=== PATIENT | male | born 1960 | race Caucasian/White ===

== ENCOUNTER 2019-05-14 05:27 | Emergency (ER) | payer MEDICAID, SELFPAY ==
[2019-05-14 05:32] VITALS: BP 123/73; PULSE 68; RESP 17; TEMP 36.4; O2SAT 97; BMI 26.9
== END 2019-05-14 07:20 | disposition left against medical advice (07) ==
PROVIDERS: Emergency Provider Emergency Medicine
DX: R06.02 Shortness of breath (principal); R09.81 Nasal congestion; Z53.21 Procedure and treatment not carried out due to patient leaving prior to being seen by health care provider
CPT/HCPCS: 99281

== ENCOUNTER 2020-05-19 02:23 | Emergency (ER) | payer MEDICAID, SELFPAY ==
[2020-05-19 02:31] VITALS: BP 153/103; PULSE 63; RESP 16; TEMP 36.7; O2SAT 98; BMI 25.8
[2020-05-19 02:36] VITALS: BP 153/103; PULSE 66; RESP 15; O2SAT 98
--- NOTE | 2020-05-19 02:41 | XR_ITS ---
WS: [id number] Portable AP upright chest, 05/19/2020 Clinical Data: dizzy Comparison: PA and lateral chest, 07/23/2014. Findings: No nodules, masses or effusions are seen. The heart is normal. The pulmonary vascularity is not increased. No pneumonia or pneumothorax is seen. The aortic arch and descending aorta are tortuo us. XR/XR chest 1V portable [id number] Impression: Atherosclerosis.
--- NOTE | 2020-05-19 02:41 | CTR_ITS ---
PROCEDURE INFORMATION: Exam: CT Head Without Contrast Exam date and time: 05/19/2020 2:46 AM Age: 59 years old Clinical indication: Patient HX: Dizziness. History of prior head trauma from childhood. ; Additional info: Dizzy TECHNIQUE: Imaging protocol: Computed tomography of the head without contrast. Radiation optimization: All CT scans at this facility use at least one of these dose optimization techniques: automated exposure control; mA and/or kV adjustment per patient size (includes targeted exams where dose is matched to clinical indication); or iterative reconstruction. COMPARISON: [place] [id number] 09/02/2018 10:07 AM RADIATION DOSE METRICS: Total DLP (mGy-cm): 835.23 FINDINGS: Brain: No hemorrhage. No edema, mass effect or midline shift. Periventricular and deep white matter hypodensities compatible with chronic microvascular ischemic changes. Chronic appearing left basal ganglia lacunar infarct. Cerebral ventricles: No ventriculomegaly. Bones/joints: No acute fracture. Paranasal sinuses: Visualized sinuses are unremarkable. No fluid levels. Mastoid air cells: No mastoid effusion. Soft tissues: Unremarkable. CT/CT head wo con* [id number] IMPRESSION: No acute intracranial abnormality. Radiation Dose CTDIVOL = (mGy): DLP = 835.23 (mGy-cm)
--- NOTE | 2020-05-19 02:42 | ECG_ITS ---
[facility] Test Date: 2020-05-19 Pat Name: Evan Abel Department: Room: Gender: Male It Application Development Manager: : 1960 Requested By: Sherri Mars Order Number: [id number] Klever MD: Ebonie Mckeon M.D. Measurements Intervals [place] Rate: 65 P: 54 MI: 177 QRS: 39 QRSD: 95 T: 49 QT: 389 QTc: 405 Interpretive Statements SINUS RHYTHM No previous ECG available for comparison Electronically Signed On 05-19-2020 22:02:44 [employer] OPERATOR [employer] by Ebonie Mckeon M.D. [email or web address]
--- NOTE | 2020-05-19 02:45 | W.ED.NEUROSD ---
HPI - Neuro Symptoms/Deficit General: Chief Complaint: General Medical Stated Complaint: cloudy in the head Time Seen by Provider: 05/19/20 02:25 Source: patient Mode of arrival: ambulatory Limitations: no limitations History of Present Illness: HPI Narrative: 59-year-old male states for the last 4 to 5 months he has been having foggy feeling and states that sometimes he feels like he just cannot think right. He states that he has a hard time describing it and he just states that he does not feel like his brain is functioning at 100%. States has had some slight dizziness denies any worsening improving factors. He states that tonight just discontinued he wants to make sure he does not have a brain tumor. He denies any headache. Denies any worsening or improving factors. Denies any recent injuries. Associated symptoms: Deny chest pain, headache(s), nausea or vomiting Review of Systems Const: Denies: fever(s), chills, body aches or change in appetite Eyes: Denies: blurry vision or eye discomfort ENMT: Denies: throat pain or dental pain Card: Denies: chest pain Resp: Denies: dyspnea GI: Denies: abdominal pain, nausea, vomiting or diarrhea : Denies: dysuria Musc: Denies: neck pain or back pain Skin/Breast: Denies: rash Neuro: Denies: headache(s) Psych: Denies: depression Agustin/Lymph: Denies: easy bruising All/Imm: Denies: urticaria PFSH ED PFSH: Social History Smoking and tobacco status: never smoked NIH stroke score NIHSS: Level Of Consciousness - 1a: 0 Level Of Consciousness Questions - 1b: Both Correct Level Of Consciousness Commands - 1c: Both Correct Best Gaze - 2: Normal Visual Mac - 3: No Visual Loss Facial Palsy - 4: Normal Motor Arm Right - 5: No Drift Motor Arm Left - 5: No Drift Motor Leg Right - 6: No Drift Motor Leg Left - 6: No Drift Limb Ataxia - 7: Absent Sensory - 8: Normal Best Language - 9: No Aphasia Dysarthia - 10: Normal Extinction And Inattention - 11: 0 Score: Total Score: 0 Physical Exam Const: COMMON NORMALS: no acute distress, patient oriented x3 and healthy appearing HENMT: COMMON NORMALS: normocephalic and atraumatic HEAD & SCALP: normocephalic and atraumatic Eye: COMMON NORMALS: Equal, round and reactive pupils present and EOMs intact bilaterally PUPIL: Yes Equal, round and reactive pupils present Neck/C-Spine: COMMON NORMALS: full ROM and supple Chest: COMMONS NORMALS: normal inspection of the chest and normal palpation of entire chest wall Resp: COMMON NORMALS: normal respiratory effort, No retractions, No use of accessory muscles and clear to auscultation bilaterally AUSCULTATION: clear to auscultation bilaterally Cardio: COMMON NORMALS: regular rate, regular rhythm and No murmurs present (Cardio) RATE: regular rate RHYTHM: regular rhythm GI: COMMON NORMALS: Normal to inspection, nondistended, normoactive bowel sounds present, Soft to palpation, non-tender and no masses PALPATION: Yes Soft to palpation Extremity: COMMON NORMALS: normal to inspection and full ROM Neuro: COMMON NORMALS: patient oriented x3, moves all extremities and no focal motor deficits CRANIAL NERVES: Yes CN normal except as noted COORDINATION/BALANCE: [id number] test normal SPEECH: speech normal GAIT: Yes Normal gait present MOTOR EXAM: 5/5 motor strength present throughout COORDINATION: [id number] test normal Psych: COMMON NORMALS: mental status grossly normal, Normal thought process present and cooperative THOUGHT PROCESS: Normal thought process present Skin: COMMON NORMALS: no rashes or lesions noted and no wounds GENERAL SKIN EXAM: no rashes or lesions noted Course Vital Signs: Vital signs: Vital Signs Temperature 98.1 F 05/19/20 02:31 Pulse Rate 66 05/19/20 04:13 Respiratory Rate 15 05/19/20 04:13 Blood Pressure 135/83 05/19/20 04:13 Pulse Oximetry 97 05/19/20 04:13 MDM - Neuro Symptoms/Deficit MDM Narrative: Medical decision making narrative: Evan presents with vague complaints has been going on for months. Patient's well-appearing here and has no signs of a CVA. Patient's head CT and blood work is all normal. He is able to ambulate out any difficulty. He is stable for discharge and is to follow-up his PCP in 2 to 4 days return if worsening. He understands agrees to plan. Lab Data: Labs: Lab Results 03/04/21 03/04/21 03/04/21 Range/Units 03:00 03:00 03:04 WBC 6.1 (4.0-10.0) 10^3/ uL RBC 4.99 (4.1-5.3) 10^6/u L Hgb 15.0 (11.7-16.6) g/dL Hct 45.5 (42.0-52.0) % MCV 91.2 (80-94) fL MCH 30.1 (28.0-34.0) pg MCHC 33.0 (30.0-36.0) g/dL RDW 12.3 (12.1-15.1) % Plt Count 230 (130-400) 10^3/c mm MPV 11.4 H (7.4-10.4) fL Neut % (Auto) 57.0 % Lymph % (Auto) 30.3 % [place] % (Auto) 8.5 % Eos % (Auto) 3.6 % Baso % (Auto) 0.3 % Neut # (Auto) 3.49 (1.8-7.7) 10^3/u L Lymph # (Auto) 1.9 (0.8-4.8) 10^3/u L [place] # (Auto) 0.5 (0.2-0.9) 10^3/u L Eos # (Auto) 0.2 (0.0-0.8) 10^3/u L Baso # (Auto) 0.0 (0.0-0.1) 10^3/u L Nucleated RBC % (a uto) 0 % Nucleated RBCs # 0.0 /100WBC Sodium 140 (136-145) mmol/L Potassium 4.0 (3.5-5.1) mmol/L Chloride 106 (98-107) mmol/L Carbon Dioxide 26 (22-29) mmol/L Anion Gap 12.0 (5-19) BUN 17 (8-23) mg/dL Creatinine 1.1 (0.7-1.2) mg/dL GFR Calculation 68.3 L (90-130) mL/min Glucose 99 (65-115) mg/dL POC Glucose 108 (70-110) mg/dL Calculated Osmolal ity 292 (285-295) mOsm/k g Calcium 8.6 (8.5-10.5) mg/dL Total Bilirubin 0.5 (0.15-1.2) mg/dL AST 16 (0-40) U/L ALT 20 (0-41) U/L Alkaline Phosphata se 75 (40-130) IU/L Total Protein 6.8 (6.6-8.7) g/dL Albumin 4.2 (3.5-5.2) g/dL Globulin 2.6 (1.3-4.6) g/dL Imaging Data^: CXR: Attestation: I personally reviewed and interpreted this imaging study as follows: My impression: no acute abnormality CT Head: Radiologist's impression: [facility] [place] [address] [place] [address] CT Scan Report Signed Patient: Evan Abel Unit #: [id number] : 1960 Age/Sex: 59 / M ADM Date: 05/19/20 Loc: ER Room/Bed: Attending Dr: Ordering Provider/Ordering MD: Sherri Mars MD Date of Service: 05/19/20 Procedure(s): CT head wo con* 20205 Accession Number(s): [id number] Report Number: [id number] PROCEDURE INFORMATION: Exam: CT Head Without Contrast Exam date and time: 05/19/2020 2:46 AM Age: 59 years old Clinical indication: Patient HX: Dizziness. History of prior head trauma from childhood. ; Additional info: Dizzy TECHNIQUE: Imaging protocol: Computed tomography of the head without contrast. Radiation optimization: All CT scans at this facility use at least one of these dose optimization techniques: automated exposure control; mA and/or kV adjustment per patient size (includes targeted exams where dose is matched to clinical indication); or iterative reconstruction. COMPARISON: [place] contrast [id number] 09/02/2018 10:07 AM RADIATION DOSE METRICS: Total DLP (mGy-cm): 835.23 FINDINGS: Brain: No hemorrhage. No edema, mass effect or midline shift. Periventricular and deep white matter hypodensities compatible with chronic microvascular ischemic changes. Chronic appearing left basal ganglia lacunar infarct. Cerebral ventricles: No ventriculomegaly. Bones/joints: No acute fracture. Paranasal sinuses: Visualized sinuses are unremarkable. No fluid levels. Mastoid air cells: No mastoid effusion. Soft tissues: Unremarkable. CT/CT head wo con* [id number] IMPRESSION: No acute intracranial abnormality. Radiation Dose CTDIVOL = (mGy): DLP = 835.23 (mGy EKG Data^: EKG 1: Attestation: I personally reviewed and interpreted this EKG as follows: EKG interpretation date: 05/19/20 EKG interpretation time: 03:07 Interpretation: nsr hr [address] or t wave abnormalities qrs 95 qtc 400 Discharge Plan Discharge Patient Disposition: Home Clinical Impression: Dizziness Condition: Stable Prescriptions: No Action No Known Home Medications RF: 0 permethrin 5 % cream 1 applic TOPICAL ONCE 1 Days Qty: 60 RF: 0 Discharge Orders: Discharge ED (Routine); Ordered 05/19/20 Ordered By: Sherri Mars Discharge Diet: Advance as tolerated Discharge Activity: Resume usual activity Patient Instructions: Dizziness (ED) Coding Level of Care Code ED [employer] Operator for Chg Fwd Exam Comprehensive
--- NOTE | 2020-05-19 03:10 | PC.NURSE ---
EKG taken and given to Dr. Mars
[2020-05-19 03:11] LABS: Glucose Point of Care 108 mg/dL (70-110)
[2020-05-19 03:15] LABS: Basophils % 0.3 %; Eosinophils # 0.2 10^3/uL (0.0-0.8); Eosinophils % 3.6 %; Hematocrit 45.5 % (42.0-52.0); Lymphocytes # 1.9 10^3/uL (0.8-4.8); Lymphocytes % 30.3 %; Mean Corpuscular Hemoglobin 30.1 pg (28.0-34.0); Mean Corpuscular Volume 91.2 fL (80-94); Mean Platelet Volume 11.4 fL (7.4-10.4); Monocytes # 0.5 10^3/uL (0.2-0.9); Monocytes % 8.5 %; Neutrophils # 3.49 10^3/uL (1.8-7.7); Nucleated Red Blood Cells % 0 %; Platelet Count 230 10^3/cmm (130-400); Red Blood Count 4.99 10^6/uL (4.1-5.3); Red Cell Distribution Width 12.3 % (12.1-15.1); White Blood Count 6.1 10^3/uL (4.0-10.0)
[2020-05-19 03:35] LABS: Alanine Aminotransferase 20 U/L (0-41); Albumin Level 4.2 g/dL (3.5-5.2); Alkaline Phosphatase 75 IU/L (40-130); Aspartate Amino Transferase 16 U/L (0-40); Blood Urea Nitrogen 17 mg/dL (8-23); Calcium 8.6 mg/dL (8.5-10.5); Carbon Dioxide 26 mmol/L (22-29); Chloride 106 mmol/L (98-107); Globulin 2.6 g/dL (1.3-4.6); Glomerular Filtration Rate 68.3 mL/min (90-130); Glucose 99 mg/dL (65-115); Osmolality Calculated 292 mOsm/kg (285-295); Sodium 140 mmol/L (136-145); Total Bilirubin 0.5 mg/dL (0.15-1.2); Total Protein 6.8 g/dL (6.6-8.7)
[2020-05-19 04:13] VITALS: BP 135/83; PULSE 66; RESP 15; O2SAT 97
[2020-05-19 04:28] VITALS: BP 135/83; PULSE 64; RESP 15; O2SAT 97
== END 2020-05-19 04:28 | disposition home or self-care (01) ==
PROVIDERS: Emergency Provider Emergency Medicine
DX: R42 Dizziness and giddiness (principal)
CPT/HCPCS: 36416; 70450; 71045; 80053; 82962; 85025; 93005; 99283

== ENCOUNTER → 2020-06-20 16:54 | Outpatient (BNVA) | payer MEDICAID, SELFPAY | PROVIDERS: Visit Provider Nurse Practitioner | DX: N39.0 Urinary tract infection, site not specified (principal) | CPT/HCPCS: 81000; 87086 ==

== ENCOUNTER 2020-09-24 05:22 | Emergency (ER) | payer MEDICAID, SELFPAY ==
[2020-09-24 05:31] VITALS: BP 126/84; PULSE 84; RESP 18; TEMP 37; O2SAT 96; BMI 26.5
--- NOTE | 2020-09-24 05:41 | ED_ITS ---
HPI - SOB/Dyspnea General: Chief Complaint: Shortness of Breath/Dyspnea Stated Complaint: Cough\Shortness of Breath Time Seen by Provider: 09/24/20 05:34 History of Present Illness: HPI Narrative: 59-year-old male [facility] emergency room complaining of being stuffy and congested. Told the nurses he was short of breath when I talked to him #about he denied any severe bradycardia shortness of breath other than when he was wearing a mask. His biggest complaint was sinus congestion. In talking to him when find that his son about 2 months ago seems like a large component of this is anxiety. He states he usually takes Xanax for his but he did not have any. He used to see a midlevel in [facility] for the right leg and elongated to see how he is out and will get refills. He denies any vomiting or diarrhea denies any anosmia denies any productive cough. MD elicited complaint: shortness of breath and cough Onset (ago): hour(s) Timing: constant Severity: mild Exacerbating factors: coughing Relieving factors: nothing Associated symptoms: Deny abdominal pain, chest congestion, chest pain, cough, diaphoresis, dizziness, extremity pain, fever(s), hemoptysis, lightheadedness, myalgias, nausea, orthopnea, palpitations, paresthesias, polydipsia, polyuria, sense of impending doom, syncope or vomiting Treatment prior to arrival: none Review of Systems Const: Denies: fever(s) or diaphoresis ENMT: Denies: throat pain, ear or mastoid pain, nasal discharge or nasal congestion Card: Denies: chest pain, palpitations, lightheadedness, syncope or orthopnea Resp: Denies: hemoptysis or chest congestion GI: Denies: abdominal pain, nausea or vomiting : Denies: flank pain, dysuria, urinary frequency or urinary urgency Musc: Denies: extremity pain Skin/Breast: Denies: rash or pruritus Neuro: Denies: dizziness Endo: Denies: polyuria or polydipsia PFSH ED PFSH: Medical History History of TIA (transient ischemic attack) Surgical History History of back surgery 2007 History of bilateral inguinal hernia repair 1992 History of colonoscopy 2019 Social History Smoking and tobacco status: never smoked Physical Exam Const: COMMON NORMALS: no acute distress GENERAL APPEARANCE: cooperative and comfortable ORIENTATION/CONSCIOUSNESS: Yes awake, Yes oriented to person, Yes oriented to place and Yes oriented to time HENMT: COMMON NORMALS: normocephalic, atraumatic, hearing grossly normal bilaterally and external ears normal HEAD & SCALP: normocephalic and atraumatic EXTERNAL EAR: Yes external ears normal Neck/C-Spine: COMMON NORMALS: no JVD Resp: COMMON NORMALS: normal respiratory effort, No retractions, No use of accessory muscles and clear to auscultation bilaterally AUSCULTATION: clear to auscultation bilaterally Cardio: COMMON NORMALS: no JVD, regular rate, regular rhythm and No murmurs present (Cardio) RATE: regular rate RHYTHM: regular rhythm GI: COMMON NORMALS: Soft to palpation and No hepatosplenomegaly present AUSCULTATION: Yes normoactive bowel sounds PALPATION: Yes Soft to palpation, No Tenderness to palpation present (GI), No Guarding due to palpation present (GI) and Yes No hepatosplenomegaly present Extremity: COMMON NORMALS: normal to inspection, capillary refill normal, no clubbing, cyanosis or edema, no calf tenderness and no pedal edema Neuro: SENSORIUM/ORIENTATION: Yes oriented to person, Yes oriented to place and Yes oriented to time Skin: COMMON NORMALS: no rashes or lesions noted GENERAL SKIN EXAM: no rashes or lesions noted Course Vital Signs: Vital signs: Vital Signs Temperature 98.6 F 09/24/20 06:43 Pulse Rate 88 09/24/20 06:44 Respiratory Rate 18 09/24/20 06:44 Blood Pressure 132/78 09/24/20 06:44 Pulse Oximetry 98 09/24/20 06:44 MDM - SOB/Dyspnea MDM Narrative: Medical decision making narrative: Significant findings on chest x-ray we will treat him for sinusitis with Augmentin given some h ydroxyzine to use as needed for anxiety until he can follow-up with his primary care doctor. Discharge Plan Discharge Patient Disposition: Home Clinical Impression: Sinusitis, Anxiety and depression Condition: Stable Prescriptions: New Augmentin 875-125 mg tablet 1 tab PO BID Qty: 20 RF: 0 hydroxyzine HCl 25 mg tablet 25 mg PO Q8H PRN (Reason: anxiety) Qty: 15 RF: 0 No Action gabapentin [Neurontin] 100 mg capsule 100 mg PO TID Qty: 30 RF: 0 tamsulosin 0.4 mg capsule 0.4 mg PO DAILY RF: 0 meclizine 25 mg tablet 25 mg PO Q6H PRN (Reason: dizziness) Qty: 40 RF: 0 Discharge Orders: Discharge ED (Routine); Ordered 09/24/20 Ordered By: Douglas Hudson Patient Instructions: Opioid Safety Coding Level of Care Code ED Third Shift Lieutenant for Chg Fwd Exam Comprehensive
--- NOTE | 2020-09-24 05:46 | XRR_ITS ---
PROCEDURE INFORMATION: Exam: XR Chest Exam date and time: 09/24/2020 5:46 AM Age: 59 years old Clinical indication: Cough and dyspnea; Additional info: Dyspnea/cough TECHNIQUE: Imaging protocol: XR of the chest. Views: 1 view. COMPARISON: CR XR chest 1V portable [id number] 05/19/2020 2:55 AM FINDINGS: Lungs: Minimal scarring or atelectasis lingula. Hyperdense nodular density left infrahilar lung could reflect vessel or granuloma calcified. Pleural spaces: Unremarkable. No pleural effusion. No pneumothorax. Heart/Mediastinum: Stable heart size. Bones/joints: Degenerative change of the spine. XR/XR chest 1V portable [id number] IMPRESSION: Minimal scarring or atelectasis lingula.
[2020-09-24] MEDS: hyDROXYzine 25 mg Capsule PO (05:59)
[2020-09-24 06:43] VITALS: BP 122/80; PULSE 82; RESP 16; TEMP 37; O2SAT 96
[2020-09-24 06:44] VITALS: BP 132/78; PULSE 88; RESP 18; O2SAT 98
== END 2020-09-24 06:45 | disposition home or self-care (01) ==
PROVIDERS: Emergency Provider Family Medicine
DX: J32.9 Chronic sinusitis, unspecified (principal); F41.8 Other specified anxiety disorders; Z86.73 Personal history of transient ischemic attack (TIA), and cerebral infarction without residual deficits
CPT/HCPCS: 71045; 99283

== ENCOUNTER 2020-11-22 14:28 | Emergency (ER) | payer MEDICAID, SELFPAY ==
--- NOTE | 2020-11-22 14:38 | XRR_ITS ---
PROCEDURE INFORMATION: Exam: XR Right Ankle Exam date and time: 11/22/2020 2:38 PM Age: 60 years old Clinical indication: Injury or trauma; Fall; Blunt trauma; Ankle and foot; Right; Injury details: Fell from ladder pain in RT foot and ankle TECHNIQUE: Imaging protocol: XR Right ankle. Views: 3 or more views. COMPARISON: No relevant prior studies available. FINDINGS: Bones/joints: Normal. Soft tissues: Normal. XR/XR ankle RT min 3V* [id number] IMPRESSION: No acute findings.
--- NOTE | 2020-11-22 14:38 | XRR_ITS ---
PROCEDURE INFORMATION: Exam: XR Right Foot Exam date and time: 11/22/2020 2:38 PM Age: 60 years old Clinical indication: Injury or trauma; Fall; Blunt trauma; Ankle and foot; Right; Injury details: Fell from ladder pain in RT foot and ankle TECHNIQUE: Imaging protocol: XR Right foot. Views: 3 or more views. COMPARISON: No relevant prior studies available. FINDINGS: Bones/joints: Normal. Soft tissues: Normal. XR/XR foot RT min 3V* [id number] IMPRESSION: No acute findings.
[2020-11-22 15:00] VITALS: BP 100/65; PULSE 73; RESP 15; TEMP 36.4; O2SAT 94; BMI 26.4
== END 2020-11-22 20:24 ==
PROVIDERS: Emergency Provider Family Medicine
DX: Z53.21 Procedure and treatment not carried out due to patient leaving prior to being seen by health care provider (principal)
CPT/HCPCS: 73610; 73630

== ENCOUNTER 2021-01-11 14:20 | Outpatient (CLI) | payer MEDICAID, SELFPAY ==
--- NOTE | 2021-01-11 14:35 | XR_ITS ---
WS: [id number] Exam: XR shoulder LT min 2V* [id number] Date/Time of Exam: 01/11/2021 2:35 PM Reason For Exam: PAIN IN LEFT SHOULDER No fracture or dislocation noted. Minimal DJD at the AC joint. Normal soft tissues. XR/XR shoulder LT min 2V* [id number] IMPRESSION: 1. Minimal AC joint DJD. No fracture or dislocation.
== END 2021-01-11 14:21 | disposition home or self-care (01) ==
LOC: RAD 14:24
PROVIDERS: PCP Clinical Nurse Specialist Adult Health; Visit Provider Clinical Nurse Specialist Adult Health
DX: M25.512 Pain in left shoulder (principal)
CPT/HCPCS: 73030

== ENCOUNTER 2021-02-20 15:38 | Outpatient (CLI) | payer MEDICAID, SELFPAY ==
--- NOTE | 2021-02-20 16:00 | MR_ITS ---
WS: [id number] MRI LEFT SHOULDER HISTORY: M25.512 - Pain in left shoulder COMPARISON: 01/11/2021 TECHNIQUE: Multiplanar sequences of the shoulder joint are submitted. Moderate AC joint hypertrophy. Narrowing of the AC joint with moderate-sized osteophytes encroaching upon the supraspinatus muscle and tendon. 6 mm osteophyte is causing deformity upon the supraspinatus . Very small amount of fluid in the subacromial and subdeltoid bursa. There is an additional osteophy te from the distal undersurface of the acromion encroaching upon the supraspinatus tendon. Mild narro wing of the subacromial space. No os acromion. Biceps tendon remains in the bicipital groove. Mild tendinopathy in the distal supraspinatus. There is no tear even though there is moderate encroac hment upon the supraspinatus by AC joint osteophytes. No muscle atrophy or edema. Well-rounded benign -appearing bone lesion in the posterior scapula. Lesion measures 7 mm in diameter. Markedly abnormal signal within the anterior labrum. Abnormal signal within a labrum signal is irregu lar consistent with a complex tear. There is a small amount of fluid in the subscapular recess. Subch ondral cystic changes in the posterior lateral humeral head are probably degenerative. Humeral head i s slightly high riding. MR/MR shoulder LT wo con* [id number] IMPRESSION: 1. Moderate AC joint arthritis with 6 mm osteophyte encroaching upon the supra spinatus. 2. Additional osteophyte from the distal inferior acromion causing mild subacr omial impingement. 3. Complex tear anterior labrum. 4. No rotator cuff tear. Mild tendinopathy in the supraspinatus tendon.
== END 2021-02-20 15:39 | disposition home or self-care (01) ==
LOC: RADSHAW 15:42
PROVIDERS: PCP Clinical Nurse Specialist Adult Health; Visit Provider Orthopaedic Surgery
DX: M19.012 Primary osteoarthritis, left shoulder (principal); M25.712 Osteophyte, left shoulder; S43.432A Superior glenoid labrum lesion of left shoulder, initial encounter; X58.XXXA Exposure to other specified factors, initial encounter
CPT/HCPCS: 73221

== ENCOUNTER 2021-04-18 16:22 | Outpatient (CLI) | payer MEDICAID, SELFPAY ==
--- NOTE | 2021-04-18 | XR_ITS ---
WS: [id number] XR thoracolumbar junct [id number] REASON FOR EXAM: low back pain FINDINGS: Mild wedge-shaped compression deformities in the lower thoracic spine and in the L1 vertebral body. T hese findings were noted and are unchanged compared to 08/11/2014. No other significant compression deformities or focal vertebral body abnormality. The intervertebral disc spaces relatively well preserved with mild narrowing of the T12-L1 and L1-L2 disc spaces. This is unchanged compared to the previous study. No significant listhesis. XR/XR thoracolumbar junct [id number] IMPRESSION: Degenerative spondylosis which appears stable compared to 08/11/2014.
== END 2021-04-18 16:23 | disposition home or self-care (01) ==
LOC: RAD 16:23
PROVIDERS: PCP Clinical Nurse Specialist Adult Health; Visit Provider Clinical Nurse Specialist Adult Health
DX: M47.815 Spondylosis without myelopathy or radiculopathy, thoracolumbar region (principal)
CPT/HCPCS: 72080

== ENCOUNTER 2021-05-26 07:50 | Outpatient (CLI) | payer MEDICAID, SELFPAY ==
--- NOTE | 2021-05-26 07:53 | MR_ITS ---
WS: [id number] MRI LUMBAR SPINE NONCONTRAST TECHNIQUE: Sagittal T1, T2 and STIR imaging. Axial T1 and T2 imaging. CLINICAL INFORMATION: LOW BACK PAIN COMPARISON: MRI 5 ,015 FINDINGS: Mild lumbar curve. No acute compression. Mild disc bulging L4-L5. No high-grade central canal stenosi s. L1-L2: Mild facet arthropathy. Spinal canal and foramen are patent. L2-L3: Mild facet arthropathy. Spinal canal and foramen are patent. L3-L4: Mild annular bulging. Slight effacement of ventral thecal sac. Moderate facet arthropathy. Sma ll LEFT foraminal protrusion with mild LEFT foraminal narrowing. L4-L5: Mild annular bulging with mild central canal stenosis. Impingement traversing L5 nerve roots b ilaterally. Moderate facet arthropathy. Mild LEFT greater than RIGHT foraminal narrowing. L5-S1: Minimal annular bulging. Spinal canal and foramen are patent. Moderate facet arthropathy. Visualized pelvic bony structures: Normal. Paravertebral soft tissues: Normal. Central canal stenosis L4-L5 progressed compared to 2015. Small LEFT foraminal protrusion L3-L4 and L 4-L5 with mild foraminal narrowing has progressed. MR/MR lumbar spine wo con* [id number] IMPRESSION: 1. Mild lumbar curve. No acute compression. No high-grade central canal stenos is. 2. Mild annular bulging L4-L5 with impingement on the traversing L5 nerve root s bilaterally with mild central canal stenosis. 3. Small LEFT foraminal protrusion L4-L5 with mild LEFT foraminal narrowing. 4. Small LEFT foraminal protrusion L3-L4 with contact exiting LEFT L3 nerve ro ot with mild LEFT L3-L4 foraminal narrowing. 5. Moderate facet arthropathy throughout the lumbar spine worse at L3-L5.
== END 2021-05-26 07:51 | disposition home or self-care (01) ==
LOC: RAD 07:51
PROVIDERS: PCP Clinical Nurse Specialist Adult Health; Visit Provider Clinical Nurse Specialist Adult Health
DX: M51.26 Other intervertebral disc displacement, lumbar region (principal); M47.816 Spondylosis without myelopathy or radiculopathy, lumbar region
CPT/HCPCS: 72148

== ENCOUNTER 2021-06-06 03:59 | Emergency (ER) | payer MEDICAID, SELFPAY ==
[2021-06-06 04:07] VITALS: BP 114/78; PULSE 95; RESP 18; TEMP 36.9; O2SAT 95; BMI 25.8
--- NOTE | 2021-06-06 04:08 | XRR_ITS ---
PROCEDURE INFORMATION: Exam: XR Chest Exam date and time: 06/06/2021 3:24 AM Age: 60 years old Clinical indication: Patient HX: C/O cough with congestion. ; Additional info: SOB TECHNIQUE: Imaging protocol: XR of the chest. Views: 1 view. COMPARISON: CR (CHEST, ) 09/24/2020 6:02 AM FINDINGS: Lungs: Unremarkable. No consolidation. Pleural spaces: Unremarkable. No pleural effusion. No pneumothorax. Heart/Mediastinum: Unremarkable. No cardiomegaly. Bones/joints: Unremarkable. XR/XR chest 1V portable [id number] IMPRESSION: No acute findings.
--- NOTE | 2021-06-06 04:19 | ED_ITS ---
HPI - URI/Sore Throat General: Chief Complaint: Upper Respiratory Infection Stated Complaint: congestion Time Seen by Provider: 06/06/21 04:02 Source: patient Mode of arrival: ambulatory Limitations: no limitations History of Present Illness: 60-year-old male who states he has been having nasal congestion ingestion with a cough along with maxillary sinus pain over the last 2 to 3 days. States he has been out in the [employer] [place] with his grandson. He denies any fevers denies any vomiting denies any shortness of breath. Denies any vomiting or diarrhea. Associated symptoms: Reports nasal congestion; Deny abdominal pain, chills, chest pain, diarrhea, fever(s), headache(s), nausea or vomiting Review of Systems Const: Denies: fever(s), chills, body aches or change in appetite Eyes: Denies: blurry vision or eye discomfort ENMT: Reports: nasal congestion Card: Denies: chest pain Resp: Reports: non-productive cough GI: Denies: abdominal pain, nausea, vomiting or diarrhea : Denies: dysuria Musc: Denies: neck pain or back pain Skin/Breast: Denies: rash Neuro: Denies: headache(s) Psych: Denies: depression Agustin/Lymph: Denies: easy bruising All/Imm: Denies: urticaria PFSH ED PFSH: Medical History History of TIA (transient ischemic attack) Surgical History History of back surgery 2006 History of bilateral inguinal hernia repair 1992 History of colonoscopy 2018 Social History Smoking and tobacco status: never smoked Physical Exam Const: COMMON NORMALS: no acute distress, patient oriented x3 and healthy appearing HENMT: COMMON NORMALS: normocephalic and atraumatic HEAD & SCALP: normocephalic and atraumatic Eye: COMMON NORMALS: Equal, round and reactive pupils present and EOMs intact bilaterally PUPIL: Yes Equal, round and reactive pupils present Neck/C-Spine: COMMON NORMALS: full ROM and supple Chest: COMMONS NORMALS: normal inspection of the chest and normal palpation of entire chest wall Resp: COMMON NORMALS: normal respiratory effort, No retractions, No use of accessory muscles and clear to auscultation bilaterally AUSCULTATION: clear to auscultation bilaterally Cardio: COMMON NORMALS: regular rate, regular rhythm and No murmurs present (Cardio) RATE: regular rate RHYTHM: regular rhythm GI: COMMON NORMALS: Normal to inspection, nondistended, normoactive bowel sounds present, Soft to palpation, non-tender and no masses PALPATION: Yes Soft to palpation Extremity: COMMON NORMALS: normal to inspection and full ROM Neuro: COMMON NORMALS: patient oriented x3, moves all extremities and no focal motor deficits Psych: COMMON NORMALS: mental status grossly normal, Normal thought process present and cooperative THOUGHT PROCESS: Normal thought process present Skin: COMMON NORMALS: no rashes or lesions noted and no wounds GENERAL SKIN EXAM: no rashes or lesions noted Course Vital Signs: Vital signs: Vital Signs Temperature 98.5 F 06/06/21 04:07 Pulse Rate 95 06/06/21 04:07 Respiratory Rate 18 06/06/21 04:07 Blood Pressure 114/78 06/06/21 04:07 Pulse Oximetry 95 06/06/21 04:07 MDM - URI/Sore Throat Medical Decision Making Patient presents here with congestion did test positive for Covid he is well- appearing here no distress x-ray is normal. [facility] return if worsening. Lab Data Laboratory Results Influenza Type A Ag Negative (Negative) 06/06/21 04:14 Influenza Type B Ag Negative (Negative) 06/06/21 04:14 SARS-CoV-2 Ag (Rapid) Positive (Negative) H 06/06/21 04:14 Discharge Plan Discharge Patient Disposition: Home Clinical Impression: COVID-19 Condition: Stable Prescriptions: No Action fluticasone propionate [Allergy Relief (fluticasone)] 50 mcg/actuation spray,suspension 1 spray intranasal DAILY Qty: 16 0RF Rx Instructions: administer into each nostril tamsulosin 0.4 mg capsule 0.4 mg PO DAILY 0RF Discharge Orders: Discharge ED (Routine); Ordered 06/06/21 Ordered By: Sherri Mars Referrals: Conrado Theodore [Primary Care Provider] - Discharge Diet: Advance as tolerated Discharge Activity: Resume usual activity Patient Instructions: COVID-19 (Coronavirus Disease 2019) (ED) Coding Level of Care Code ED Coach Driver for Chg Fwd Exam Comprehensive
[2021-06-06] MEDS: dexamethasone 10 mg/mL INJ IM (04:31)
[2021-06-06 04:41] LABS: Influenza A by IFA Negative (Negative); Influenza B by IFA Negative (Negative); SARS Covid-2 Antigen Positive (Negative)
== END 2021-06-06 04:52 | disposition home or self-care (01) ==
PROVIDERS: Emergency Provider Emergency Medicine; PCP Clinical Nurse Specialist Adult Health
DX: U07.1 COVID-19 (principal); Z86.73 Personal history of transient ischemic attack (TIA), and cerebral infarction without residual deficits
CPT/HCPCS: 71045; 87426; 87804; 99282; J1100

== ENCOUNTER 2021-08-09 07:12 | Emergency (ER) | payer MEDICAID, SELFPAY ==
[2021-08-09 07:24] VITALS: BP 121/82; PULSE 67; RESP 17; O2SAT 97; BMI 25.8
--- NOTE | 2021-08-09 07:44 | W.ED.GENADLT ---
HPI - General Adult General: Chief complaint: General Medical Stated complaint: skin concerns Time Seen by Provider: 08/09/21 07:15 Source: patient Mode of arrival: ambulatory Limitations: no limitations History of Present Illness: Patient is a nice 60-year-old male who presents to ED today wanting evaluation for a sensation of bugs crawling on his skin. Patient tells me he has had the symptoms intermittently for several years. He states 4 years ago he stated a hotel in [place] that had bedbugs and states since then he will intermittently feel bugs crawling on his skin. He states the sensation seems to be worse in the morning when he awakes. He states that seems to get better throughout the day mainly because he is distracted. Patient has not noticed any lesions or bites on his skin. Looking at previous documentation he has been seen twice for similar symptoms and given Permethrin cream in the absence of any type of dermatological findings. Patient states he is not having any itching and denies any skin excoriated areas. Patient states he never visualizes any bugs-just has the sensation that they are on his skin. Onset (ago): year(s) Severity: mild Relieving factors: none Exacerbating factors: none Associated symptoms: Deny chest pain, dyspnea, headache(s), malaise, nausea, rash or vomiting Treatments prior to arrival: none Review of Systems Const: Denies: fever(s), chills, body aches, fatigue or malaise Eyes: Denies: change in vision Card: Denies: chest pain Resp: Denies: dyspnea GI: Denies: abdominal pain, nausea, vomiting or diarrhea Musc: Denies: neck pain, back pain, extremity pain or joint pain Skin/Breast: Reports: other (formication); Denies: rash, pruritus, erythema, sores, new lesions or jaundice Neuro: Denies: headache(s), numbness in extremities, weakness in extremities, sensory changes or dizziness PFS ED PFSH: Medical History History of TIA (transient ischemic attack) Surgical History History of back surgery 2006 History of bilateral inguinal hernia repair 1992 History of colonoscopy 2018 Social History Smoking and tobacco status: never smoked Physical Exam Const: COMMON NORMALS: no acute distress, average body habitus, patient oriented x3, no limitations, healthy appearing, alert and well nourished GENERAL APPEARANCE: cooperative ORIENTATION/CONSCIOUSNESS: Yes awake, Yes oriented to person, Yes oriented to place and Yes oriented to time Eye: COMMON NORMALS: no scleral icterus Resp: COMMON NORMALS: normal respiratory effort and clear to auscultation bilaterally AUSCULTATION: clear to auscultation bilaterally Cardio: COMMON NORMALS: regular rate and regular rhythm RATE: regular rate RHYTHM: regular rhythm Extremity: GENERAL: Yes normal exam except as noted Neuro: JOSE COMA SCALE: document GCS findings Jose coma scale eye opening: Spontaneous [place] coma scale verbal response: Orientated [place] coma scale motor response: Obey commands [place] coma scale total score: 15 COMMON NORMALS: patient oriented x3, moves all extremities, no focal motor deficits, no sensory deficits noted and gait normal SENSORIUM/ORIENTATION: Yes alert, Yes oriented to person, Yes oriented to place and Yes oriented to time Psych: COMMON NORMALS: mental status grossly normal, Normal thought process present, cooperative, normal affect, speech normal, activity/motor behavior normal and denies hallucinations APPEARANCE: Yes grossly normal ATTITUDE: Yes calm ACTIVITY/MOTOR BEHAVIOR: Yes appropriate eye contact SPEECH: Yes normal speech MOOD & AFFECT: Yes euthymic mood THOUGHT PROCESS: Normal thought process present THOUGHT CONTENT: Yes Normal thought content present ATTENTION/CONCENTRATION: Yes attention grossly intact and Yes concentration grossly intact MEMORY/COGNITION: Yes memory grossly intact and Yes cognition grossly intact INSIGHT: Good insight present (Psych) JUDGEMENT: Good judgement present (Psych) Skin: COMMON NORMALS: no rashes or lesions noted GENERAL SKIN EXAM: no rashes or lesions noted Course Vital Signs: Vital signs: Vital Signs Pulse Rate 67 08/09/21 07:24 Respiratory Rate 17 08/09/21 07:24 Blood Pressure 121/82 08/09/21 07:24 Pulse Oximetry 97 08/09/21 07:24 [facility] - General Adult Medical Decision Making Patient does not have any cutaneous findings to suggest true parasitosis. DDx for formication includes nutritional deficiencies, substance abuse, prescription medication side effects, SOCIAL SCIENCES INSTRUCTOR disorders, hypochondriasis, psychiatric disorder, among others. We did discuss how treatment for psychogenic formication is usually antipsychotics which patient does not wish to pursue at this time. Discharge Plan Discharge Patient Disposition: Home Clinical Impression: Psychogenic formication Condition: Stable Prescriptions: No Action fluticasone propionate [Allergy Relief (fluticasone)] 50 mcg/actuation spray,suspension 1 spray intranasal DAILY Qty: 16 0RF Rx Instructions: administer into each nostril tamsulosin 0.4 mg capsule 0.4 mg PO DAILY 0RF Discharge Orders: Discharge ED (Routine); Ordered 08/09/21 Ordered By: Anna Marie Zendejas Referrals: Conrado Theodore CUSTOMER OPERATIONS INTERN [Primary Care Provider] - Coding Level of Care Code ED Director Of Logistics for Chg Fwd Exam Comprehensive
== END 2021-08-09 08:31 | disposition home or self-care (01) ==
PROVIDERS: Emergency Provider Physician Assistant; PCP Clinical Nurse Specialist Adult Health
DX: F45.8 Other somatoform disorders (principal)
CPT/HCPCS: 99282

== ENCOUNTER 2021-09-04 14:06 | Emergency (ER) | payer MEDICAID, SELFPAY ==
[2021-09-04 14:14] VITALS: BP 147/93; PULSE 93; RESP 16; TEMP 36.5; O2SAT 96; BMI 25.8
--- NOTE | 2021-09-04 14:32 | ECG_ITS ---
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 Measurements Intervals Riva Rate: 89 P: 37 NJ: 158 QRS: 33 QRSD: 99 T: 28 QT: 348 QTc: 425 Interpretive Statements SINUS RHYTHM MODERATE ST DEPRESSION [0.05+ mV ST DEPRESSION] Compared to ECG 05/19/2020 03:07:21 ST (T wave) deviation now present Electronically Signed On 09-04-2021 21:20:51 CDT by Ebonie Mckeon M.D. [id number]
--- NOTE | 2021-09-04 14:32 | XR_ITS ---
WS: [id number] Exam: XR chest 1V portable [id number] Date/Time of Exam: 09/04/2021 2:38 PM Reason For Exam: chest pain Comparison 06/06/2021. The lungs are fully inflated and clear. Unremarkable cardiomediastinal silhouette. Fusion hardware in the lower cervical spine. Anchoring screw in the right humeral head. Degenerative change and mild de xtroscoliosis of the T-spine. XR/XR chest 1V portable [id number] IMPRESSION: 1. No acute cardiopulmonary finding.
--- NOTE | 2021-09-04 14:34 | ED_ITS ---
HPI - General Adult General: Chief complaint: Anxiety Stated complaint: anxiety/difficulty eating/hallucinations Time Seen by Provider: 09/04/21 14:20 History of Present Illness: Patient is a 60-year-old male with history of chronic anxiety on alprazolam at home presenting to the emergency room for multiple complaints including difficulty swallowing and worsening anxiety. Patient tells me that for the last 2 months, he has had difficulty swallowing solid food. Patient tells me that he feels like something is stuck in his chest every time he eats. Patient denies any drooling, shortness of breath, nausea/vomiting, abdominal pain, chest pain, shortness of breath with swelling. Patient tells me that he has not followed with anybody for this complaint. In addition, patient tells me that his anxiety is worsened. Patient is compliant with approximately one-point he is feeling anxious throughout the day and would like to have more medication. Patient denies any auditory hallucinations, homicidal ideation, or suicidal ideation. Patient denies any active depression. Onset: 2 month of dysphagia and 1 week of worsening anxiety Duration:ongoing Location:home Severity:mild/moderate Associated symptoms: Deny chest pain, dyspnea, nausea, rash, palpitations or vomiting Review of Systems Const: Denies: fever(s) or chills Eyes: Denies: change in vision ENMT: Reports: other (+dysphagia); Denies: mouth pain Card: Denies: chest pain or palpitations Resp: Denies: dyspnea or non-productive cough GI: Denies: abdominal pain, nausea, vomiting or diarrhea : Denies: dysuria Musc: Denies: extremity pain Skin/Breast: Denies: rash or new lesions Neuro: Denies: weakness in extremities Psych: Reports: other (Normal mood) Agustin/Lymph: Denies: easy bruising PFS ED PFSH: Medical History History of TIA (transient ischemic attack) Surgical History History of back surgery 2006 History of bilateral inguinal hernia repair 1992 History of colonoscopy 2018 Social History Smoking and tobacco status: never smoked Physical Exam Const: COMMON NORMALS: alert HENMT: COMMON NORMALS: atraumatic HEAD & SCALP: atraumatic MOUTH: moist mucous membranes not abnormal Eye: COMMON NORMALS: EOMs intact bilaterally and conjunctivae normal CONJUNCTIVA: Yes conjunctivae normal Neck/C-Spine: COMMON NORMALS: full ROM and supple Resp: COMMON NORMALS: normal respiratory effort and clear to auscultation bilaterally AUSCULTATION: clear to auscultation bilaterally Cardio: COMMON NORMALS: regular rate RATE: regular rate GI: COMMON NORMALS: Soft to palpation and non-tender PALPATION: Yes Soft to palpation Extremity: COMMON NORMALS: full ROM Neuro: SENSORIUM/ORIENTATION: Yes alert MOTOR EXAM: No Abnormal motor strength present and Other motor observations present (no focal motor deficits) Psych: COMMON NORMALS: speech normal SPEECH: Yes normal speech MOOD & AFFECT: Yes euthymic mood Course Vital Signs: Vital signs: Vital Signs Temperature 97.7 F 09/04/21 14:39 Pulse Rate 93 09/04/21 14:39 Respiratory Rate 16 09/04/21 14:39 Blood Pressure 147/93 09/04/21 14:39 Pulse Oximetry 96 09/04/21 14:39 MDM - General Adult Medical Decision Making 60-year-old male presents emergency room for complaints of difficulty swallowing and worsening anxiety. Exam, patient is hemodynamically stable without any focal findings. X-ray chest negative for any acute findings. Troponin within normal limit. Doubt ACS/PE or other emergent causes of chest pain. No suspicion for aortic dissection given no widened mediastinum, 2+ upper extremity pulses, or tearing pain. No suspicion for PE given no pleuritic chest pain, recent immobilization or surgery hemoptysis, or other VTE risk factors. EKG is non- ischemic. XR normal. Patient has been able to tolerate p.o. in the emergency room including liquids and solids. Given patient close follow-up with primary care provider for further evaluation of dysphagia symptoms. Discussed case with Dr. Norman who recommended starting patient on Vistaril for worsening anxiety. at the present time, patient reassures me that he does not have any suicidal ideation, homicidal ideation, or active hallucination. Rx vistaril PRN anxiety Disposition: Discharge. Patient counseled regarding diagnostic impression, treatment plan. Patient given ED strict return precautions to return for continuation, worsening, or development of new symptoms. Instructed to f/u w/ PCP regarding symptoms today. Patient verbalized understanding. Lab Data : 09/04/21 14:44 Radiology Impressions Chest X-Ray 09/04/21 14:32 IMPRESSION: 1. No acute cardiopulmonary finding. Laboratory Results WBC 5.9 10^3/uL (4.0-10.0) 09/04/21 14:44 RBC 4.96 10^6/uL (4.1-5.3) 09/04/21 14:44 Hgb 15.0 g/dL (11.7-16.6) 09/04/21 14:44 Hct 44.5 % (42.0-52.0) 09/04/21 14:44 MCV 89.7 fl (80-94) 09/04/21 14:44 MCH 30.2 pg (28.0-34.0) 09/04/21 14:44 MCHC 33.7 g/dL (30.0-36.0) 09/04/21 14:44 RDW 12.3 % (12.1-15.1) 09/04/21 14:44 Plt Count 273 10^3/cmm (130-400) 09/04/21 14:44 MPV 11.9 fL (7.4-10.4) H 09/04/21 14:44 Neut % (Auto) 72.8 % 09/04/21 14:44 Lymph % (Auto) 18.9 % 09/04/21 14:44 Kimble % (Auto) 6.9 % 09/04/21 14:44 Eos % (Auto) 1.0 % 09/04/21 14:44 Baso % (Auto) 0.2 % 09/04/21 14:44 Neut # (Auto) 4.33 10^3/uL (1.8-7.7) 09/04/21 14:44 Lymph # (Auto) 1.1 10^3/uL (0.8-4.8) 09/04/21 14:44 Kimble # (Auto) 0.4 10^3/uL (0.2-0.9) 09/04/21 14:44 Eos # (Auto) 0.1 10^3/uL (0.0-0.8) 09/04/21 14:44 Baso # (Auto) 0.0 10^3/uL (0.0-0.1) 09/04/21 14:44 Nucleated RBC % (auto) 0 % 09/04/21 14:44 Nucleated RBCs # 0.0 /100WBC 09/04/21 14:44 Troponin T Baseline 6 ng/L (0-15) 09/04/21 14:44 Imaging Data Other Imaging: Radiologist's impression: [address] [address] XRay Report Signed Patient: Evan Abel Unit #: [id number] : 1960 Age/Sex: 60 / M ADM Date: 09/04/21 Loc: ER Room/Bed: Attending Dr: Ordering Provider/Ordering MD: James Gross MD Date of Service: 09/04/21 Procedure(s): XR chest 1V portable [id number] Accession Number(s): [id number] Report Number: [id number] WS: [id number] Exam: XR chest 1V portable [id number] Date/Time of Exam: 09/04/2021 2:38 PM Reason For Exam: chest pain Comparison 06/06/2021. The lungs are fully inflated and clear. Unremarkable cardiomediastinal silhouette. Fusion hardware in the lower cervical spine. Anchoring screw in the right humeral head. Degenerative change and mild dextroscoliosis of the T-spine. XR/XR chest 1V portable [id number] IMPRESSION: 1. No acute cardiopulmonary finding. ? Dictated By: Artis Lovell DO Signed By: Artis Lovell DO Signed Date/Time: 09/04/211458 DD/ 57 Discharge Plan Discharge Patient Disposition: Home Clinical Impression: Anxiety Condition: Stable Prescriptions: New Vistaril 25 mg capsule 25 mg PO BID PRN (Reason: anxiety) 10 Days Qty: 20 0RF No Action meloxicam 15 mg tablet 15 mg PO QAM 0RF alprazolam 0.25 mg tablet 0.25 mg PO DAILY PRN (Reason: Anxiety) 0RF albuterol sulfate [ProAir HFA] 90 mcg/actuation HFA aerosol inhaler 1 - 2 puff INHALATION Q4H PRN (Reason: Shortness Of Breath) 0RF finasteride 5 mg tablet 5 mg PO EVERY OTHER DAY 0RF baclofen 5 mg tablet 5 mg PO TID PRN (Reason: Muscle Spasticity) 0RF Allergy Relief (fluticasone) 50 mcg/actuation spray,suspension 1 spray intranasal DAILY PRN (Reason: Allergy Symptoms) 0RF Rx Instructions: administer into each nostril Vitamin B-12 1 tab PO DAILY PRN (Reason: unknown) 0RF Discharge Orders: Discharge ED (Routine); Ordered 09/04/21 Ordered By: James Gross Referrals: Conrado Theodore HOLE DIGGER [Primary Care Provider] - Discharge Diet: Advance as tolerated Discharge Activity: Increase activity as tolerated Patient Instructions: Anxiety (ED) Activity Restrictions/Additional Instructions: Please come back to the emergency room if you need help, have any hallucinations, or you have any depression or have thoughts about hurting yourself or other people. Coding Level of Care Code ED Flow Machine Operator for Carlyle Fwsilas Exam Comprehensive
[2021-09-04 14:39] VITALS: BP 147/93; PULSE 93; RESP 16; TEMP 36.5; O2SAT 96
--- NOTE | 2021-09-04 14:51 | PC.NURSE ---
EKG done at 1447 and shown to ER doctor
--- NOTE | 2021-09-04 14:53 | PC.PHAR ---
pt states he takes care of his own medications-pt states he is not taking tamsulosin 0.4mg daily ext med history shows last filled 07/20/21 30d/s-pt states he takes proscar 5mg every other day ext med history shows last filled 07/21/21 30d/s for 5mg daily-notes are made in the pharmacy comments
[2021-09-04 15:39] LABS: Basophils % 0.2 %; Eosinophils # 0.1 10^3/uL (0.0-0.8); Hematocrit 44.5 % (42.0-52.0); Lymphocytes # 1.1 10^3/uL (0.8-4.8); Lymphocytes % 18.9 %; Mean Corpuscular HGB Conc 33.7 g/dL (30.0-36.0); Mean Corpuscular Hemoglobin 30.2 pg (28.0-34.0); Mean Corpuscular Volume 89.7 fl (80-94); Mean Platelet Volume 11.9 fL (7.4-10.4); Monocytes # 0.4 10^3/uL (0.2-0.9); Monocytes % 6.9 %; Neutrophils # 4.33 10^3/uL (1.8-7.7); Neutrophils % 72.8 %; Nucleated Red Blood Cells % 0 %; Platelet Count 273 10^3/cmm (130-400); Red Blood Count 4.96 10^6/uL (4.1-5.3); Red Cell Distribution Width 12.3 % (12.1-15.1); White Blood Count 5.9 10^3/uL (4.0-10.0)
[2021-09-04 15:42] LABS: Troponin(5th) Baseline 6 ng/L (0-15)
[2021-09-04 16:42] VITALS: BP 147/93; PULSE 93; RESP 16; TEMP 36.5; O2SAT 96
[2021-09-04 17:56] LABS: Anion Gap 18.4 (5-19); Blood Urea Nitrogen 12 mg/dL (8-23); Calcium 9.2 mg/dL (8.5-10.5); Carbon Dioxide 22 mmol/L (22-29); Chloride 102 mmol/L (98-107); Glomerular Filtration Rate 98.3 mL/min (90-130); Glucose 139 mg/dL (65-115); Osmolality Calculated 290 mOsm/kg (285-295); Potassium 3.4 mmol/L (3.5-5.1); Sodium 139 mmol/L (136-145)
== END 2021-09-04 16:44 | disposition home or self-care (01) ==
PROVIDERS: Emergency Provider Emergency Medicine; PCP Clinical Nurse Specialist Adult Health
DX: F41.9 Anxiety disorder, unspecified (principal); Z86.73 Personal history of transient ischemic attack (TIA), and cerebral infarction without residual deficits
CPT/HCPCS: 36415; 71045; 80048; 84484; 85025; 93005; 99284

== ENCOUNTER → 2021-10-09 09:56 | Outpatient (BNVA) | payer MEDICAID, SELFPAY | PROVIDERS: PCP Clinical Nurse Specialist Adult Health; Visit Provider Clinical Nurse Specialist Adult Health | DX: J02.9 Acute pharyngitis, unspecified (principal) | CPT/HCPCS: 87880 ==

== ENCOUNTER 2021-10-22 06:56 | Emergency (ER) | payer MEDICAID, SELFPAY ==
[2021-10-22 07:08] VITALS: BP 132/87; PULSE 66; RESP 15; TEMP 36.4; O2SAT 97; BMI 25.8
--- NOTE | 2021-10-22 07:21 | W.ED.SKABFB ---
HPI - Skin/Abscess/Foreign Bdy General: Chief complaint: Extremity Problem,Nontraumatic Stated complaint: rash on hands Time Seen by Provider: 10/22/21 06:59 Source: patient Mode of arrival: ambulatory Limitations: no limitations History of Present Illness: Patient is a nice 60-year-old male who presents to ED today with complaints of a pruritic rash to his bilateral hands that has been present over the past 4 to 5 days. Patient states prior to rash beginning he was pulling weeds in his garden and did visualize some poison sumac. Patient states he was initially seen by his primary care nurse practitioner who prescribed him topical steroids however he has not filled these at the pharmacy. He has been treating with OTC eczema cream and does not feel like this is controlling the itch. He states his hands feel tight and swollen . Patient denies a rash anywhere else besides his hands. He has no systemic symptoms. MD complaint: rash Onset (ago): day(s) (4-5 days ago) Tetanus up to date: yes Location: L hand and R hand Quality: pruritic Relieving factors: none Exacerbating factors: none Context: other (pulling weeds in garden) Associated symptoms: Reports no associated symptoms; Deny chills or fever(s) Treatments prior to arrival: OTC topical medication (eczema relief cream) Review of Systems Const: Denies: fever(s), chills, body aches, fatigue or malaise Skin/Breast: Reports: rash and pruritus Neuro: Denies: headache(s), numbness in extremities or sensory changes [facility] ED PFSH: Medical History Anxiety disorder History of TIA (transient ischemic attack) Surgical History History of back surgery 2006 History of bilateral inguinal hernia repair 1992 History of colonoscopy 2019 Family History (Updated 10/19/21 @ 13:02 by Conrado Theodore NP) Mother Generalized anxiety disorder Father Diabetes Lung disease Son , sudden No problems noted. Social History Smoking and tobacco status: never smoked Physical Exam Const: COMMON NORMALS: no acute distress, average body habitus, patient oriented x3, no limitations, healthy appearing, alert and well nourished Extremity: COMMON NORMALS: normal to inspection, full ROM and capillary refill normal NARRATIVE EXTREMITY EXAM: see skin exam below GENERAL: Yes normal exam except as noted Neuro: COMMON NORMALS: patient oriented x3, moves all extremities, no focal motor deficits and no sensory deficits noted SENSORIUM/ORIENTATION: Yes alert Skin: NARRATIVE SKIN EXAM: pt has scattered areas of erythematous papules to bilateral hands some of which look like at one point had vesicular formation but now ruptured/crusted RASHES: rashes noted Course Vital Signs: Vital signs: Vital Signs Temperature 97.6 F 10/22/21 07:08 Pulse Rate 66 10/22/21 07:08 Respiratory Rate 15 10/22/21 07:08 Blood Pressure 132/87 10/22/21 07:08 Pulse Oximetry 97 10/22/21 07:08 Oxygen Delivery Me thod 10/22/21 07:08 MDM - Skin/Abscess/Foreign Bdy Medicial Decision Making History and clinical appearance favor a plant dermatitis as a cause for patient's pruritic hand rash. Will treat with IM hydrocortisone here and place on 8d steroid taper at home. Discharge Plan Discharge Patient Disposition: Home Clinical Impression: Plant irritant contact dermatitis Condition: Stable Prescriptions: New prednisone 10 mg tablet 10 mg PO DAILY 8 Days Qty: 32 0RF Rx Instructions: 6 tabs on days 1-2, 5 tabs on days 3-4, 4 tabs on day 5, 3 tabs on day 6, 2 tabs on day 7, 1 tab on day 8 No Action triamcinolone acetonide 0.1 % cream 1 applic topical DAILY Qty: 30 0RF meloxicam 15 mg tablet 15 mg PO QAM alprazolam 0.25 mg tablet 0.25 mg PO DAILY PRN (Reason: Anxiety) albuterol sulfate [ProAir HFA] 90 mcg/actuation HFA aerosol inhaler 1 - 2 puff INHALATION Q4H PRN (Reason: Shortness Of Breath) baclofen 5 mg tablet 5 mg PO TID PRN (Reason: Muscle Spasticity) Allergy Relief (fluticasone) 50 mcg/actuation spray,suspension 1 spray intranasal DAILY PRN (Reason: Allergy Symptoms) Rx Instructions: administer into each nostril Vitamin B-12 1 tab PO DAILY PRN (Reason: unknown) finasteride 5 mg tablet 5 mg PO DAILY Discharge Orders: Discharge ED (Routine); Ordered 10/22/21 Ordered By: Anna Marie Zendejas Referrals: Conrado Theodore, ROLL HAULER [Primary Care Provider] - Coding Level of Care Code ED Customer Service Analyst for Chg Fwd Exam Expanded Problem Focused
[2021-10-22] MEDS: hydrocortisone 100 mg/2 mL SDV 80 MG IM (07:24)
[2021-10-22 07:35] VITALS: BP 118/78; PULSE 65; RESP 21; O2SAT 98
== END 2021-10-22 07:37 | disposition home or self-care (01) ==
PROVIDERS: Emergency Provider Physician Assistant; PCP Clinical Nurse Specialist Adult Health
DX: L24.7 Irritant contact dermatitis due to plants, except food (principal); Z86.73 Personal history of transient ischemic attack (TIA), and cerebral infarction without residual deficits
CPT/HCPCS: 96372; 99284; J1720

== ENCOUNTER 2021-10-28 05:59 | Emergency (ER) | payer MEDICAID, SELFPAY ==
[2021-10-28 06:01] VITALS: BP 152/85; PULSE 72; RESP 16; TEMP 37; O2SAT 97; BMI 26.1
--- NOTE | 2021-10-28 06:13 | ECG_ITS ---
[facility] Test Date: 2021-10-28 Pat Name: Evan Abel Department: Room: Gender: Male Affiliate Marketing Specialist: : 1960 Requested By: Sherri Mars Order Number: [id number] Klever MD: Marco Corbin M.D. Measurements Intervals [place] Rate: 73 P: 66 OR: 152 QRS: 65 QRSD: 93 T: 67 QT: 388 QTc: 430 Interpretive Statements SINUS RHYTHM Compared to ECG 09/04/2021 14:48:59 ST (T wave) deviation no longer present Electronically Signed On 10-28-2021 20:32:00 CDT by Marco Corbin M.D. [email or web address]
--- NOTE | 2021-10-28 06:18 | CTR_ITS ---
PROCEDURE INFORMATION: Exam: CT Head Without Contrast Exam date and time: 10/28/2021 6:55 AM Age: 61 years old Clinical indication: Dizziness; Additional info: Dizzy TECHNIQUE: Imaging protocol: Computed tomography of the head without contrast. Total images: 298 Radiation optimization: All CT scans at this facility use at least one of these dose optimization techniques: automated exposure control; mA and/or kV adjustment per patient size (includes targeted exams where dose is matched to clinical indication); or iterative reconstruction. COMPARISON: CT head wo con* [id number] 05/19/2020 3:31 AM RADIATION DOSE METRICS: Total DLP (mGy-cm): 1050.04 FINDINGS: Brain: Perivascular space suspected in the left basal ganglia, although potentially related to remote lacunar infarct. Cerebral ventricles: No ventriculomegaly. Paranasal sinuses: Visualized sinuses are unremarkable. No fluid levels. Mastoid air cells: Partial opacification of right mastoid air cells. Orbital cavities: Prior right lens replacement. Bones/joints: Unremarkable. No acute fracture. Soft tissues: Unremarkable. CT/CT head wo con* [id number] IMPRESSION: 1. No acute intracranial pathology detected. 2. Perivascular space suspected in the left basal ganglia, although potentially related to remote lacunar infarct. 3. Partial opacification of right mastoid air cells.
--- NOTE | 2021-10-28 06:22 | ED_ITS ---
HPI - Dizziness General: Chief Complaint: Dizziness Stated Complaint: dizziness Time Seen by Provider: 10/28/21 06:09 Source: patient Mode of arrival: ambulatory Limitations: no limitations History of Present Illness: HPI Narrative: 61-year-old male states he been having intermittent dizziness over a year. He states that happens typically with standing or sudden movements he states been off and on he states that he woke up this morning again and when he tried to ambulate he felt dizzy and nauseous he states improved with rest. 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 Denies headache denies any head injury. Associated symptoms: Denies chest pain, chills, nausea or vomiting Review of Systems Const: Denies: fever(s), chills, body aches or change in appetite Eyes: Denies: blurry vision or eye discomfort ENMT: Denies: throat pain or dental pain Card: Denies: chest pain Resp: Denies: dyspnea GI: Denies: abdominal pain, nausea, vomiting or diarrhea : Denies: dysuria Musc: Denies: neck pain or back pain Skin/Breast: Denies: rash Neuro: Reports: vertigo Psych: Denies: depression Agustin/Lymph: Denies: easy bruising All/Imm: Denies: urticaria PFSH ED PFSH: Medical History Anxiety disorder History of TIA (transient ischemic attack) Surgical History History of back surgery 2006 History of bilateral inguinal hernia repair 1992 History of colonoscopy 2019 Family History Mother Generalized anxiety disorder Father Diabetes Lung disease Son , sudden No problems noted. Social History Smoking and tobacco status: never smoked Physical Exam Const: COMMON NORMALS: no acute distress, patient oriented x3 and healthy appearing HENMT: COMMON NORMALS: normocephalic and atraumatic HEAD & SCALP: normo cephalic and atraumatic Eye: COMMON NORMALS: Equal, round and reactive pupils present and EOMs intact bilaterally PUPIL: Yes Equal, round and reactive pupils present Neck/C-Spine: COMMON NORMALS: full ROM and supple Chest: COMMONS NORMALS: normal inspection of the chest and normal palpation of entire chest wall Resp: COMMON NORMALS: normal respiratory effort, No retractions, No use of accessory muscles and clear to auscultation bilaterally AUSCULTATION: clear to auscultation bilaterally Cardio: COMMON NORMALS: regular rate, regular rhythm and No murmurs present (Cardio) RATE: regular rate RHYTHM: regular rhythm GI: COMMON NORMALS: Normal to inspection, nondistended, normoactive bowel sounds present, Soft to palpation, non-tender and no masses PALPATION: Yes Soft to palpation Extremity: COMMON NORMALS: normal to inspection and full ROM Neuro: COMMON NORMALS: patient oriented x3, moves all extremities and no focal motor deficits CRANIAL NERVES: Yes CN normal except as noted SPEECH: speech normal GAIT: Yes Normal gait present MOTOR EXAM: 5/5 motor strength present throughout Psych: COMMON NORMALS: mental status grossly normal, Normal thought process present and cooperative THOUGHT PROCESS: Normal thought process present Skin: COMMON NORMALS: no rashes or lesions noted and no wounds GENERAL SKIN EXAM: no rashes or lesions noted Course Vital Signs: Vital signs: Vital Signs Temperature 98.6 F 10/28/21 06:01 Pulse Rate 72 10/28/21 06:01 Respiratory Rate 16 10/28/21 06:01 Blood Pressure 152/85 10/28/21 06:01 Pulse Oximetry 97 10/28/21 06:01 Oxygen Delivery Me thod 10/28/21 06:01 MDM - Dizziness Medical Decision Making Patient presents here with dizziness likely peripheral vertigo head CT is normal. He feels improved here after Antivert he has no signs of stroke he stable for discharge we will prescribe him Antivert for home he is to follow-up PCP and return if worsening. Lab Data : 10/28/21 06:19 10/28/21 06:[address] 10/28/21 06:18 IMPRESSION: 1. No acute intracranial pathology detected. 2. Perivascular space suspected in the left basal ganglia, although potentially related to remote lacunar infarct. 3. Partial opacification of right mastoid air cells. Laboratory Results WBC 7.3 10^3/uL (4.0-10.0) 10/28/21 06:19 RBC 5.09 10^6/uL (4.1-5.3) 10/28/21 06:19 Hgb 15.5 g/dL (11.7-16.6) 10/28/21 06:19 Hct 47.0 % (42.0-52.0) 10/28/21 06:19 MCV 92.3 fl (80-94) 10/28/21 06:19 MCH 30.5 pg (28.0-34.0) 10/28/21 06:19 MCHC 33.0 g/dL (30.0-36.0) 10/28/21 06:19 RDW 12.2 % (12.1-15.1) 10/28/21 06:19 Plt Count 299 10^3/cmm (130-400) 10/28/21 06:19 MPV 10.6 fL (7.4-10.4) H 10/28/21 06:19 Neut % (Auto) 65.0 % 10/28/21 06:19 Lymph % (Auto) 22.9 % 10/28/21 06:19 [place] % (Auto) 8.9 % 10/28/21 06:19 Eos % (Auto) 2.6 % 10/28/21 06:19 Baso % (Auto) 0.3 % 10/28/21 06:19 Neut # (Auto) 4.74 10^3/uL (1.8-7.7) 10/28/21 06:19 Lymph # (Auto) 1.7 10^3/uL (0.8-4.8) 10/28/21 06:19 [place] # (Auto) 0.7 10^3/uL (0.2-0.9) 10/28/21 06:19 Eos # (Auto) 0.2 10^3/uL (0.0-0.8) 10/28/21 06:19 Baso # (Auto) 0.0 10^3/uL (0.0-0.1) 10/28/21 06:19 Nucleated RBC % (auto) 0 % 10/28/21 06:19 Nucleated RBCs # 0.0 /100WBC 10/28/21 06:19 Sodium 142 mmol/L (136-145) 10/28/21 06:19 Potassium 3.9 mmol/L (3.5-5.1) 10/28/21 06:19 Chloride 104 mmol/L (98-107) 10/28/21 06:19 Carbon Dioxide 28 mmol/L (22-29) 10/28/21 06:19 Anion Gap 13.9 (5-19) 10/28/21 06:19 BUN 12 mg/dL (8-23) 10/28/21 06:19 Creatinine 1.0 mg/dL (0.7-1.2) 10/28/21 06:19 GFR Calculation 75.7 mL/min (90-130) L 10/28/21 06:19 Glucose 105 mg/dL (65-115) 10/28/21 06:19 Calculated Osmolality 294 mOsm/kg (285-295) 10/28/21 06:19 Calcium 8.8 mg/dL (8.5-10.5) 10/28/21 06:19 Total Bilirubin 0.9 mg/dL (0.15-1.2) 10/28/21 06:19 AST 16 U/L (0-40) 10/28/21 06:19 ALT 14 U/L (0-41) 10/28/21 06:19 Alkaline Phosphatase 74 IU/L (40-130) 10/28/21 06:19 Total Protein 6.8 g/dL (6.6-8.7) 10/28/21 06:19 Albumin 4.3 g/dL (3.5-5.2) 10/28/21 06:19 Globulin 2.5 g/dL (1.3-4.6) 10/28/21 06:19 EKG Data EKG 1: I personally reviewed and interpreted this EKG as follows: EKG interpretation date: 10/28/21 EKG interpretation time: 06:13 Interpretation: nsr hr [address] or t wave abnormalities qrs 93 qtc 414 Discharge Plan Discharge Patient Disposition: Home Clinical Impression: Dizziness Condition: Stable Prescriptions: New Antivert 50 mg tablet 50 mg PO BID PRN (Reason: dizziness) Qty: 20 0RF No Action triamcinolone acetonide 0.1 % cream 1 applic topical DAILY Qty: 30 0RF meloxicam 15 mg tablet 15 mg PO QAM alprazolam 0.25 mg tablet 0.25 mg PO DAILY PRN (Reason: Anxiety) albuterol sulfate [ProAir HFA] 90 mcg/actuation HFA aerosol inhaler 1 - 2 puff INHALATION Q4H PRN (Reason: Shortness Of Breath) baclofen 5 mg tablet 5 mg PO TID PRN (Reason: Muscle Spasticity) Allergy Relief (fluticasone) 50 mcg/actuation spray,suspension 1 spray intranasal DAILY PRN (Reason: Allergy Symptoms) Rx Instructions: administer into each nostril Vitamin B-12 1 tab PO DAILY PRN (Reason: unknown) finasteride 5 mg tablet 5 mg PO DAILY prednisone 10 mg tablet 10 mg PO DAILY 8 Days Qty: 32 0RF Rx Instructions: 6 tabs on days 1-2, 5 tabs on days 3-4, 4 tabs on day 5, 3 tabs on day 6, 2 tabs on day 7, 1 tab on day 8 Discharge Orders: Discharge ED (Routine); Ordered 10/28/21 Ordered By: hSerri Mars Referrals: Conrado Theodore MEDICAL CHARGE ENTRY SPECIALIST [Primary Care Provider] - 1-3 days Discharge Diet: Advance as tolerated Discharge Activity: Resume usual activity Patient Instructions: Dizziness (ED) Coding Level of Care Code ED Nurse Outreach Case Manager for Chg Fwd Exam Comprehensive
[2021-10-28 06:28] LABS: Basophils % 0.3 %; Eosinophils # 0.2 10^3/uL (0.0-0.8); Eosinophils % 2.6 %; Hemoglobin 15.5 g/dL (11.7-16.6); Lymphocytes # 1.7 10^3/uL (0.8-4.8); Lymphocytes % 22.9 %; Mean Corpuscular Hemoglobin 30.5 pg (28.0-34.0); Mean Corpuscular Volume 92.3 fl (80-94); Mean Platelet Volume 10.6 fL (7.4-10.4); Monocytes # 0.7 10^3/uL (0.2-0.9); Monocytes % 8.9 %; Neutrophils # 4.74 10^3/uL (1.8-7.7); Nucleated Red Blood Cells % 0 %; Platelet Count 299 10^3/cmm (130-400); Red Blood Count 5.09 10^6/uL (4.1-5.3); Red Cell Distribution Width 12.2 % (12.1-15.1); White Blood Count 7.3 10^3/uL (4.0-10.0)
[2021-10-28 06:50] LABS: Alanine Aminotransferase 14 U/L (0-41); Albumin Level 4.3 g/dL (3.5-5.2); Alkaline Phosphatase 74 IU/L (40-130); Anion Gap 13.9 (5-19); Aspartate Amino Transferase 16 U/L (0-40); Blood Urea Nitrogen 12 mg/dL (8-23); Calcium 8.8 mg/dL (8.5-10.5); Carbon Dioxide 28 mmol/L (22-29); Chloride 104 mmol/L (98-107); Globulin 2.5 g/dL (1.3-4.6); Glomerular Filtration Rate 75.7 mL/min (90-130); Glucose 105 mg/dL (65-115); Osmolality Calculated 294 mOsm/kg (285-295); Potassium 3.9 mmol/L (3.5-5.1); Sodium 142 mmol/L (136-145); Total Bilirubin 0.9 mg/dL (0.15-1.2); Total Protein 6.8 g/dL (6.6-8.7)
[2021-10-28] MEDS: sodium chloride 0.9% 1,000 ML 999 ML IV (07:18)
[2021-10-28] MEDS: meclizine 25 mg tablet 50 MG PO (07:18)
[2021-10-28 08:15] VITALS: BP 159/87; PULSE 65; RESP 14; TEMP 36.6; O2SAT 98
== END 2021-10-28 08:17 | disposition home or self-care (01) ==
PROVIDERS: Emergency Provider Emergency Medicine; PCP Clinical Nurse Specialist Adult Health
DX: R42 Dizziness and giddiness (principal); Z86.73 Personal history of transient ischemic attack (TIA), and cerebral infarction without residual deficits
CPT/HCPCS: 70450; 80053; 85025; 93005; 96360; 99285; J7030; J8597

== ENCOUNTER → 2022-01-03 12:42 | Outpatient (BNVA) | payer MEDICAID, SELFPAY | PROVIDERS: PCP Clinical Nurse Specialist Adult Health; Referring Provider Orthopaedic Surgery; Visit Provider Specialist | DX: R20.0 Anesthesia of skin (principal); R20.2 Paresthesia of skin | CPT/HCPCS: 95910; 95912 ==

== ENCOUNTER 2022-07-13 00:11 | Emergency (ER) | payer MEDICAID, SELFPAY ==
[2022-07-13 00:37] VITALS: BP 147/78; PULSE 71; RESP 16; TEMP 36.6; O2SAT 97; BMI 25.8
--- NOTE | 2022-07-13 00:54 | CTR_ITS ---
PROCEDURE INFORMATION: Exam: CT Head Without Contrast Exam date and time: 07/13/2022 12:59 AM Age: 61 years old Clinical indication: Pain; Headache; Patient HX: C/O CHRISTIAN with dizziness. TECHNIQUE: Imaging protocol: Computed tomography of the head without contrast. Radiation optimization: All CT scans at this facility use at least one of these dose optimization techniques: automated exposure control; mA and/or kV adjustment per patient size (includes targeted exams where dose is matched to clinical indication); or iterative reconstruction. REPORTING DATA: Count of CT and Cardiac NM exams in prior 12 months: This patient has received [address] and 0 known cardiac nuclear medicine studies in the 12 months prior to the current study. COMPARISON: CT head wo con* [id number] 10/28/2021 6:55 AM RADIATION DOSE METRICS: Total DLP (mGy-cm): 984.78 FINDINGS: Brain: No acute intracranial hemorrhage or mass effect. There is very mild decreased attenuation in the periventricular white matter, likely from microvascular disease. Small well-defined low attenuation area along the inferior margin of the left basal ganglia is possibly a prominent perivascular space, versus an old lacunar infarct. The appearance is unchanged. No definite acute infarct by CT. MRI could be more sensitive/specific for detection, as clinically directed. Cerebral ventricles: Ventricle size is normal for age. Paranasal sinuses: Included paranasal sinuses are essentially clear. Mastoid air cells: There is some fluid in posterior right mastoid air cells, not significantly changed. This could be related to chronic or acute mastoiditis. Bones/joints: No definite acute skull fracture. Soft tissues: No significant acute finding. CT/CT head wo con* [id number] IMPRESSION: 1. No acute intracranial hemorrhage or mass effect. 2. No definite acute infarct by CT, see above. 3. Mastoid sinus findings as discussed above. 4. Other findings discussed above.
--- NOTE | 2022-07-13 02:03 | ED_ITS ---
HPI - Head Injury General: Chief complaint: Head Injury Stated complaint: Hit in Head Time Seen by Provider: 07/13/22 00:42 History of Present Illness: Patient is in today for headache and intermittent feeling off balance. Patient reports that he had a major head injury when he was 23 years old resulting in a skull fracture and hospitalization. He reports that over the past 3 to 4 days he has been having headache which he rates at a 3 on a 10 scale. He reports that twice he is felt a little bit off balance. He does offer that he has had significant nasal congestion and allergies to the pollen. He denies fever or chills. He states that he feels like his mentation has been a little bit slow. He reports that he typically does not have headaches status post his head injury so this is very different for him. Associated symptoms: Deny nausea or vomiting Review of Systems Const: Denies: fever(s), chills or body aches Eyes: Denies: change in vision, blurry vision or blind spots ENMT: Reports: nasal congestion Card: Denies: chest pain, palpitations or irregular heart rhythm Resp: Denies: dyspnea, productive cough or non-productive cough GI: Denies: abdominal pain, nausea or vomiting : Denies: flank pain, difficulty urinating or dysuria Neuro: Reports: headache(s), dizziness and other (Feeling of slow mentation); Denies: numbness in extremities, weakness in extremities or Slurred speech present [facility] ED PFSH: Medical History Anxiety disorder Generalized osteoarthritis History of TIA (transient ischemic attack) Surgical History History of back surgery 2006 History of bilateral inguinal hernia repair 1992 History of colonoscopy 2019 Family History Mother Generalized anxiety disorder Father Diabetes Lung disease Son , sudden No problems noted. Social History Smoking and tobacco status: never smoked Physical Exam Const: COMMON NORMALS: no acute distress, patient oriented x3 and alert OTHER: Patient is alert and oriented x3 and in no acute distress. HENMT: FACE & SINUS: sinus tenderness maxillary (Right maxillary) TYMPANIC MEMBRANE: TM normal on the left and TM abnormal TM laterality: right Details: bulging and effusion Details: serous THROAT: posterior oropharynx normal and uvula midline Neck/C-Spine: COMMON NORMALS: no JVD Resp: COMMON NORMALS: normal respiratory effort, No use of accessory muscles and clear to auscultation bilaterally AUSCULTATION: clear to auscultation bilaterally Cardio: COMMON NORMALS: no JVD, regular rate, regular rhythm, S1 normal heart sound present and S2 normal heart sound present RATE: regular rate RHYTHM: regular rhythm HEART SOUNDS: S1 normal heart sound present and S2 normal heart sound present Neuro: COMMON NORMALS: patient oriented x3, CN's II-XII intact bilaterally, moves all extremities, no focal motor deficits and no sensory deficits noted SENSORIUM/ORIENTATION: Yes alert Course Vital Signs: Vital signs: Vital Signs Temperature 97.9 F 07/13/22 00:37 Pulse Rate 71 07/13/22 00:37 Respiratory Rate 16 07/13/22 00:37 Blood Pressure 147/78 07/13/22 00:37 Pulse Oximetry 97 07/13/22 00:37 Oxygen Delivery Me thod Room Air 07/13/22 00:37 MDM - Head Injury Medcial Decision Making Patient is in today for new acute headache x3 to 4 days with some reported dizziness at home although he is not dizzy at this time. Patient has a history of a traumatic head injury. He does report some slower mentation however is difficult to discern what is baseline for this patient. Physical exam is benign except for mild clear fluid effusion to his right TM and some tenderness to palpation over his right maxillary sinus. Given patient's age and concern for change in headache character CT head ordered. CT head shows no acute intracranial hemorrhage or mass effect shows findings that could be consistent with a chronic mastoiditis on the right side and findings that could be consistent with a previous infarct. I discussed these findings with the sher arriola. We discussed treating nasal allergies and eustachian tube dysfunction with Claritin or Zyrtec [id number]-ujvokzm and Flonase. We discussed follow-up with primary care provider. Patient opts not to have any ibuprofen or Tylenol administered here in the ER. He states that he will take Aleve when he gets home. Advised patient to return to ER for any new or worsening symptoms. Lab Data Radiology Impressions Head CT 07/13/22 00:54 IMPRESSION: 1. No acute intracranial hemorrhage or mass effect. 2. No definite acute infarct by CT, see above. 3. Mastoid sinus findings as discussed above. 4. Other findings discussed above. Discharge Plan Discharge Patient Disposition: Home Clinical Impression: Allergic rhinitis, Acute dysfunction of right eustachian tube, Headache Condition: Stable Prescriptions: No Action amoxicillin-pot clavulanate [Augmentin] 500-125 mg tablet 1 tab PO TID 10 Days Qty: 30 0RF meloxicam 15 mg tablet 15 mg PO QAM Qty: 30 3RF alprazolam 0.25 mg tablet 0.25 mg PO DAILY PRN (Reason: Anxiety) Qty: 30 1RF finasteride 5 mg tablet 5 mg PO DAILY Qty: 30 6RF albuterol sulfate [ProAir HFA] 90 mcg/actuation HFA aerosol inhaler 1 - 2 puff INHALATION Q4H PRN (Reason: Shortness Of Breath) Qty: 8.5 0RF azelastine 137 mcg (0.1 %) aerosol,spray 1 spray intranasal BID Qty: 30 6RF Rx Instructions: administer into each nostril triamcinolone acetonide 0.1 % cream 1 applic topical DAILY Qty: 30 0RF baclofen 5 mg tablet 5 mg PO TID PRN (Reason: Muscle Spasticity) Vitamin B-12 1 tab PO DAILY PRN (Reason: unknown) Discharge Orders: Discharge ED (Routine); Ordered 07/13/22 Ordered By: Raiza Win Referrals: Conrado Theodore CANNED FOOD RECONDITIONING INSPECTOR [Primary Care Provider] - Discharge Diet: Usual diet Discharge Activity: Resume usual activity Patient Instructions: Allergies (ED) Activity Restrictions/Additional Instructions: Your CT did not show any acute changes or issues. I recommend treating your nasal allergies with [id number] Claritin or Zyrtec plus Flonase. Follow- up with primary care provider as needed. Return to the ER for new or worsening symptoms Coding Level of Care Code ED Pricing/Signage Team Member for Carlyle Denny
== END 2022-07-13 02:54 | disposition home or self-care (01) ==
PROVIDERS: Emergency Provider Nurse Practitioner Family; PCP Clinical Nurse Specialist Adult Health
DX: J30.9 Allergic rhinitis, unspecified (principal); R51.9 Headache, unspecified; H69.81 Other specified disorders of Eustachian tube, right ear; Z86.73 Personal history of transient ischemic attack (TIA), and cerebral infarction without residual deficits
CPT/HCPCS: 70450; 99284

== ENCOUNTER → 2022-11-02 10:07 | Outpatient (BNVA) | payer MEDICAID, SELFPAY | PROVIDERS: PCP Clinical Nurse Specialist Adult Health; Visit Provider Clinical Nurse Specialist Adult Health | DX: F41.1 Generalized anxiety disorder (principal) | CPT/HCPCS: 80053; 82306; 82607; 84443; 85025 ==

== ENCOUNTER → 2022-11-28 10:19 | Outpatient (BNVA) | payer MEDICAID, SELFPAY | PROVIDERS: PCP Clinical Nurse Specialist Adult Health; Visit Provider Clinical Nurse Specialist Adult Health | DX: H53.8 Other visual disturbances (principal); R42 Dizziness and giddiness | CPT/HCPCS: 80053; 83036 ==

== ENCOUNTER 2022-12-07 09:26 | Emergency (ER) | payer MEDICAID, SELFPAY ==
[2022-12-07 09:43] VITALS: PULSE 81; RESP 18; TEMP 36.6; O2SAT 95; BMI 26.1
--- NOTE | 2022-12-07 09:55 | ECG_ITS ---
[facility] Test Date: 2022-12-07 Pat Name: Evan Abel Department: Room: Gender: Male Telecommunication Lines Repairer: : 1960 Requested By: Douglas Lundberg Order Number: [id number] Klever MD: Earl Wisdom M.D. Measurements Intervals [place] Rate: 72 P: 44 DE: 183 QRS: 29 QRSD: 97 T: 45 QT: 370 QTc: 406 Interpretive Statements SINUS RHYTHM WITH OCCASIONAL SUPRAVENTRICULAR PREMATURE COMPLEXES Compared to ECG 10/28/2021 06:13:31 No significant changes Electronically Signed On 12-07-2022 19:06:23 CDT by Earl Wisdom M.D. [id number]
--- NOTE | 2022-12-07 09:55 | W.ED.DIZZY ---
HPI - Dizziness General: Chief Complaint: Dizziness Stated Complaint: dizzy, vision trouble Time Seen by Provider: 12/07/22 09:54 Source: patient Mode of arrival: ambulatory Limitations: no limitations History of Present Illness: HPI Narrative: Patient presents to the emergency department today for evaluation treatment of continued right-sided headache and dizziness. Patient reports developing dizziness over the last 1 to 2 years which was often episodic but, now seems more consistent. He indicates that it is worse with positional changes-especially getting up and down and laying back/sitting up. For comfort he has been minimally active to prevent positional changes. He does seem to have inner ear issues as he reports taking [id number] supplements for roaring and tinnitus. Patient also reports headaches off-and-on which has worsened over the last week or so primarily on the right side. He admits to a significant head and facial injury when he was 19 years old. Patient has been seen and evaluated for this complaint and chart review indicates that on 11/28 he was seen by primary care to discuss dizziness and headache. He was told that it is possible the medication he takes is worsening his dizziness and therefore, patient chose to stop all of his medications this week. There is also concerns for patient dehydration as he drinks a lot of caffeine and very little water. Primary care note also mentions he does not eat regularly and eats snacks versus meals. I mentioned this to the patient but he states that it is something in his head and not because of dehydration. Patient denies lower extremity edema, facial droop or one-sided body weakness/numbness but, he does indicate he consistently has muscle twitches affecting his lower extremities and, sometimes his forearms. Patient currently has muscle fiber twitching noted to the right calf. Review of Systems General: Reports: 10 or more systems reviewed and unremarkable except in HPI and below PFSH ED PFSH: Medical History Allergic rhinitis Anxiety disorder lexapro and cymbalta made symptoms worse Dizziness and giddiness Eustachian tube dysfunction Fatigue Generalized osteoarthritis History of TIA (transient ischemic attack) Lumbar stenosis Mastoiditis Surgical History History of back surgery 2006 History of bilateral inguinal hernia repair 1992 History of colonoscopy 2019 Family History Mother Generalized anxiety disorder Father Diabetes Lung disease Son , sudden No problems noted. Social History Smoking and tobacco status: never smoked Physical Exam Narrative: EXAM NARRATIVE: Blood pressure elevated upon arrival-improved here in the ER during evaluation. Const: COMMON NORMALS: no acute distress, patient oriented x3 and alert HENMT: COMMON NORMALS: normocephalic and atraumatic HEAD & SCALP: normal to inspection, normocephalic and atraumatic Eye: COMMON NORMALS: Equal, round and reactive pupils present, EOMs intact bilaterally and conjunctivae normal CONJUNCTIVA: Yes conjunctivae normal PUPIL: Yes Equal, round and reactive pupils present Neck/C-Spine: COMMON NORMALS: no meningeal signs and no JVD Lymph: LYMPHATIC: no lymphadenopathy noted Resp: COMMON NORMALS: normal respiratory effort, No retractions and No use of accessory muscles Cardio: COMMON NORMALS: no JVD and regular rate RATE: regular rate : COMMON NORMALS: Yes no CVA tenderness BLADDER/KIDNEY EXAM: Yes no CVA tenderness Back/Pelvis: COMMON NORMALS: no CVA tenderness, thoracic and lumbar spine normal to inspection and thoraco-lumbar ROM normal Extremity: COMMON NORMALS: normal to inspection, full ROM and no pedal edema NARRATIVE EXTREMITY EXAM: No pitting edema in the lower extremities. Patient with active muscle twitching noted to the right calf region. Neuro: COMMON NORMALS: patient oriented x3 SENSORIUM/ORIENTATION: Yes alert MENINGEAL SIGNS: Yes no meningeal signs CRANIAL NERVES: Yes CN normal except as noted SPEECH: speech normal Skin: COMMON NORMALS: no rashes or lesions noted and turgor normal GENERAL SKIN EXAM: no rashes or lesions noted and turgor normal Course Vital Signs: Vital signs: Vital Signs Temperature 97.9 F 12/07/22 09:43 Pulse Rate 68 12/07/22 11:12 Respiratory Rate 14 12/07/22 11:12 Blood Pressure 141/88 12/07/22 11:12 Pulse Oximetry 97 12/07/22 11:12 Oxygen Delivery Me thod Room Air 12/07/22 09:43 MDM - Dizziness Medical Decision Making Patient's evaluation here in the emergency department revealed no acute abnormalities on CT. EKG indicated a benign sinus arrhythmia. EKG second opinion provided by Dr. Aguero who indicated no acute concerns. Lab work is unremarkable for any signs of infection, anemia, electrolyte imbalance, or dehydration. Another second opinion by Dr. Aguero recommended a neuro follow-up given the length of time patient has been having symptoms with acute worsening here recently and trialing scopolamine patches rather than meclizine for his symptoms. Discussed the patient's negative work-up with him including scopolamine patch and neurology follow-up recommended. He is in agreement. Patient was given strict return precautions for any signs of facial weakness, slurred speech, sudden onset thunderclap headache, or one-sided body weakness/numbness. Patient verbalizes understanding and agreement to treatment plan. Differential Diagnosis Likely benign paroxysmal positional vertigo (Dehydration, anemia, arrhythmia); Unlikely orthostatic hypotension or cerebrovascular accident Lab Data 12/07/22 10:17 12/07/22 10:17 Laboratory Results WBC 6.54 10^3/uL (3.29-11.43) 12/07/22 10:17 RBC 5.47 10^6/uL (3.85-5.65) 12/07/22 10:17 Hgb 16.80 g/dL (11.27-16.99) 12/07/22 10:17 Hct 49.4 % (37-53) 12/07/22 10:17 MCV 90.3 fl (82-101) 12/07/22 10:17 MCH 30.7 pg (27-33) 12/07/22 10:17 MCHC 34.0 g/dL (30-55) 12/07/22 10:17 RDW 12.5 % (12.1-15.1) 12/07/22 10:17 Plt Count 275 10^3/cmm (157-399) 12/07/22 10:17 MPV 10.7 fL (7.4-10.4) H 12/07/22 10:17 Neut % (Auto) 63.0 % 12/07/22 10:17 Lymph % (Auto) 25.8 % 12/07/22 10:17 [place] % (Auto) 7.6 % 12/07/22 10:17 Eos % (Auto) 2.8 % 12/07/22 10:17 Baso % (Auto) 0.3 % 12/07/22 10:17 Neut # (Auto) 4.12 10^3/uL (1.8-7.7) 12/07/22 10:17 Lymph # (Auto) 1.7 10^3/uL (0.8-4.8) 12/07/22 10:17 [place] # (Auto) 0.5 10^3/uL (0.2-0.9) 12/07/22 10:17 Eos # (Auto) 0.2 10^3/uL (0.0-0.8) 12/07/22 10:17 Baso # (Auto) 0.0 10^3/uL (0.0-0.1) 12/07/22 10:17 Nucleated RBC % (auto) 0 % 12/07/22 10:17 Nucleated RBCs # 0.0 /100WBC 12/07/22 10:17 ESR 6 mm/hr (0-10) 12/07/22 10:17 Sodium 140 mmol/L (136-145) 12/07/22 10:17 Potassium 4.2 mmol/L (3.5-5.1) 12/07/22 10:17 Chloride 102 mmol/L (98-107) 12/07/22 10:17 Carbon Dioxide 29 mmol/L (22-29) 12/07/22 10:17 Anion Gap 13.2 (5-19) 12/07/22 10:17 BUN 18 mg/dL (8-23) 12/07/22 10:17 Creatinine 1.1 mg/dL (0.7-1.2) 12/07/22 10:17 GFR Calculation 67.6 mL/min (90-130) L 12/07/22 10:17 Glucose 105 mg/dL (65-115) 12/07/22 10:17 Calculated Osmolality 292 mOsm/kg (285-295) 12/07/22 10:17 Calcium 9.4 mg/dL (8.5-10.5) 12/07/22 10:17 Total Bilirubin 1.1 mg/dL (0.15-1.2) 12/07/22 10:17 AST 18 U/L (0-40) 12/07/22 10:17 ALT 20 U/L (0-41) 12/07/22 10:17 Alkaline Phosphatase 76 U/L (40-130) 12/07/22 10:17 Troponin T Baseline < 6 ng/L (0-15) 12/07/22 10:17 Troponin T 120 Minute < 6.0 ng/L (0-15) 12/07/22 12:15 Delta Troponin T 0 ABS# (0-10) 12/07/22 12:15 C-Reactive Protein 3.0 mg/L (0.0-4.9) 12/07/22 10:17 Total Protein 7.6 g/dL (6.6-8.7) 12/07/22 10:17 Albumin 5.0 g/dL (3.5-5.2) 12/07/22 10:17 Globulin 2.6 g/dL (1.3-4.6) 12/07/22 10:17 TSH 1.57 uIU/mL (0.27-4.20) 12/07/22 10:17 Urine Color Yellow (Yellow) 12/07/22 10:55 Urine Appearance Clear (CLEAR) 12/07/22 10:55 Urine pH 6.5 (5-7) 12/07/22 10:55 Ur Specific [place] 1.015 (1.005-1.030) 12/07/22 10:55 Urine Protein Neg (Negative) 12/07/22 10:55 Urine Glucose (UA) Norm (Normal) 12/07/22 10:55 Urine Ketones Negative (Negative) 12/07/22 10:55 Urine Blood Neg (Negative) 12/07/22 10:55 Urine Nitrate Negative (Negative) 12/07/22 10:55 Urine Bilirubin Neg (Negative) 12/07/22 10:55 Urine Urobilinogen Norm mg/dL (Negative) 12/07/22 10:55 Ur Leukocyte Esterase Negative (Negative) 12/07/22 10:55 All radiology interpretation(s) finalized by discharge Discharge Plan Discharge Patient Disposition: Home Clinical Impression: Dizziness, Right-sided headache Condition: Stable Prescriptions: New scopolamine base 1 mg over 3 days patch 3 day 1 patch transdermal Q72H PRN (Reason: motion sickness) Qty: 10 0RF No Action meloxicam 15 mg tablet 15 mg PO QAM Qty: 30 3RF alprazolam 0.25 mg tablet 0.25 mg PO DAILY PRN (Reason: Anxiety) Qty: 30 1RF fluoxetine 10 mg tablet 10 mg PO DAILY Qty: 30 6RF albuterol sulfate [ProAir HFA] 90 mcg/actuation HFA aerosol inhaler 1 - 2 puff INHALATION Q4H PRN (Reason: Shortness Of Breath) Qty: 8.5 0RF azelastine 137 mcg (0.1 %) aerosol,spray 1 spray intranasal BID Qty: 30 6RF Rx Instructions: administer into each nostril Discharge Orders: Discharge ED (Routine); Ordered 12/07/22 Ordered By: Armida Ocampo Referrals: Conrado Theodore NP [Primary Care Provider] - Discharge Diet: Usual diet Discharge Activity: Increase activity as tolerated Patient Instructions: Dizziness (ED) Activity Restrictions/Additional Instructions: Your emergency room evaluation today revealed no acute intracranial findings concerning for mass or lesion or bleeding. Your lab work shows no acute concerns at this time either. We have requested a follow-up appointment with neurology to discuss your continued dizziness and right-sided headaches which have been bothering you for quite some time. We are providing you a prescription for a scopolamine patch which she can place behind your ear for 3 days to help with dizziness. However, if you have dizziness leading to syncope, one-sided facial droop, slurred speech, or one-sided body weakness or numbness you need to be seen in the ER immediately. 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
[2022-12-07 09:56] VITALS: BP 161/112
--- NOTE | 2022-12-07 10:14 | CT_ITS ---
WS: [id number] CT HEAD TECHNIQUE: Noncontrast CT of the head obtained from the skullbase to the vertex. CLINICAL INFORMATION: h/a, dizziness COMPARISON: CT 07/13/2022 DLP: 1070.[address] scans at [facility] use at least one of these dose optimization techniques: automated e xposure control; mA and/or kV adjustment per patient size (includes targeted exams where dose is matc hed to clinical indication); or iterative reconstruction. FINDINGS: No evidence of intracranial hemorrhage or mass effect. Ventricular system and basal cisterns are chandra nt. Mild small vessel changes. Mild parenchymal volume loss. Intracranial vascular calcification. No extra-axial fluid collections. No evidence of mass or mass effect. Normal bruno-white differentiation. Paranasal sinuses are well aerated. Mild mucosal thickening RIGHT mastoid tip. LEFT mastoid air cells well aerated. Normal posterior nasopharynx. IMPRESSION: 1. No evidence of intracranial hemorrhage or mass effect. 2. No acute intracranial findings.
[2022-12-07 10:25] LABS: Basophils % 0.3 %; Eosinophils # 0.2 10^3/uL (0.0-0.8); Eosinophils % 2.8 %; Hematocrit 49.4 % (37-53); Lymphocytes # 1.7 10^3/uL (0.8-4.8); Lymphocytes % 25.8 %; Mean Corpuscular Hemoglobin 30.7 pg (27-33); Mean Corpuscular Volume 90.3 fl (82-101); Mean Platelet Volume 10.7 fL (7.4-10.4); Monocytes # 0.5 10^3/uL (0.2-0.9); Monocytes % 7.6 %; Neutrophils # 4.12 10^3/uL (1.8-7.7); Nucleated Red Blood Cells % 0 %; Platelet Count 275 10^3/cmm (157-399); Red Blood Count 5.47 10^6/uL (3.85-5.65); Red Cell Distribution Width 12.5 % (12.1-15.1); White Blood Count 6.54 10^3/uL (3.29-11.43)
[2022-12-07 10:36] LABS: Erythrocyte Sedimentation Rate 6 mm/hr (0-10)
[2022-12-07 10:47] LABS: Troponin(5th) Baseline < 6 ng/L (0-15)
[2022-12-07 10:56] LABS: Alanine Aminotransferase 20 U/L (0-41); Alkaline Phosphatase 76 U/L (40-130); Anion Gap 13.2 (5-19); Aspartate Amino Transferase 18 U/L (0-40); Blood Urea Nitrogen 18 mg/dL (8-23); Calcium 9.4 mg/dL (8.5-10.5); Carbon Dioxide 29 mmol/L (22-29); Chloride 102 mmol/L (98-107); Globulin 2.6 g/dL (1.3-4.6); Glomerular Filtration Rate 67.6 mL/min (90-130); Glucose 105 mg/dL (65-115); Osmolality Calculated 292 mOsm/kg (285-295); Potassium 4.2 mmol/L (3.5-5.1); Sodium 140 mmol/L (136-145); Thyroid Stimulating Hormone 1.57 uIU/mL (0.27-4.20); Total Bilirubin 1.1 mg/dL (0.15-1.2); Total Protein 7.6 g/dL (6.6-8.7)
[2022-12-07 11:00] LABS: Add Urine Microscopic? NO; Charge for UA Resulting for Rev
[2022-12-07 11:11] LABS: Bilirubin Urine Neg (Negative); Blood Urine Neg (Negative); Glucose Urine UA Norm (Normal); Ketones Urine Negative (Negative); Leukocyte Esterase Urine Negative (Negative); Nitrate Urine Negative (Negative); Protein Urine Neg (Negative); Specific Gravity, Urine 1.015 (1.005-1.030); Urine Appearance Clear (CLEAR); Urine Color Yellow (Yellow); Urobilinogen Urine Norm (Negative); pH Urine 6.5 (5-7)
[2022-12-07 11:12] VITALS: BP 141/88; PULSE 68; RESP 14; O2SAT 97
[2022-12-07 12:41] LABS: Troponin 5 2HR < 6.0 ng/L (0-15); Troponin 5 2HR Delta 0 ABS# (0-10)
--- NOTE | 2022-12-07 12:55 | PC.SOCIAL ---
Neuro Referral Referral message sent to neurology at this time. Clinic to contact patient with appt date/time.
== END 2022-12-07 12:55 | disposition home or self-care (01) ==
PROVIDERS: Emergency Provider Physician Assistant; PCP Clinical Nurse Specialist Adult Health
DX: R42 Dizziness and giddiness (principal); R51.9 Headache, unspecified; Z86.73 Personal history of transient ischemic attack (TIA), and cerebral infarction without residual deficits
CPT/HCPCS: 36415; 70450; 80053; 81003; 84443; 84484; 85025; 85651; 86140; 93005; 99285

== ENCOUNTER 2022-12-17 07:19 | Outpatient (CLI) | payer MEDICAID, SELFPAY ==
[2022-12-17 07:23] VITALS: BMI 25.8
--- NOTE | 2022-12-17 07:23 | ECG_ITS ---
[facility] Test Date: 2022-12-17 Pat Name: Evan Abel Department: Room: Gender: Male Psychologist Counseling: Adalgisa Francisco : 1960 Requested By: Conrado Lundberg Order Number: [id number] Klever MD: Ebonie Mckeon M.D. Interpretive Statements NAME OF STUDY: EXERCISE SESTAMIBI STRESS TEST INDICATION: Syncope, chest pain Baseline blood pressure of 145/89 mm Hg, heart rate of 73 beats per minute and oxygen saturation of 96%. EKG showed sinus rhythm, normal axis with normal ST-Ts. The patient exercised for 8 minutes and 8 seconds on a standard Edwar protocol. Patient attained a maximum heart rate of 137 beats per minute(87% of the maximum predicted heart rate) with a blood pressure at the peak exercise of 191/93 mm Hg oxygen saturation of 95%. The EKG at the peak exercise revealed sinus tachycardia with no significant ST-T wave changes. Patient did not have any chest pain or any significant arrhythmis with the exercise. Study was terminated due to maximal effort. During the recovery phase, there were no new changes. Blood pressure at the end of the recovery phase was 169/91 mm Hg with a heart rate of 81 beats per minute. CONCLUSION: 1. Normal EKG response to treadmill exercise. 2. No exercise-induced chest pain or cardiac arrhythmia 3. Excellent exercise tolerance, attained a maximum of 10.2 METs. 4. Baseline hypertension with normal response to exercise. 5. Perfusion scan will be documented separately. Electronically Signed On 12-21-2022 14:17:24 CDT by Ebonie Mckeon M.D. [id number]
--- NOTE | 2022-12-17 07:24 | NMCV_ITS ---
NM arabella perf SPECT r/s* [id number] Evan Abel Age: 62 Gender: M : 1960 Exam Date: 12/17/2022 08:23 Ordering Phys: Conrado Theodore NP Technologist: CHRISS Garcia Exam Location: [facility] Indications: CHEST PAIN STRESS TEST Please see separate stress test report in [facility] for full findings IMAGE PROTOCOL Rest/Stress 1 Exercise Day Radiopharmaceutical Dose (mCi) Administration Site Administered by Rest: Tc-99m 10.7 IV CHRISS Catherine Sestamibi Stress:Tc-99m 32.6 IV CHRISS Catherine Sestamibi Rest: 17-Dec-2022 60 Discovery 630 Stress: 17-Dec-2022 15 Discovery 630 Radiopharmaceutical was injected at 86 % maximum heart rate. Images obtained in supine and prone position. SPECT RESULTS Technical Quality: Excellent Raw Data Analysis: Normal Image Corrections: No attenuation or motion correction applied Summed Stress Score: 0 Summed Rest Score: 3 Summed Difference Score: 0 PERFUSION FINDINGS Small sized perfusion abnormality of mid inferior and mid inferolateral pichardo on rest images with improved tracer uptake in stress images. FUNCTIONAL RESULTS (calculated via Gated SPECT) Stress Image LV EF (%): 73 Stress EDV (mL):88 TID: 0.87 Stress ESV (mL):24 FUNCTIONAL FINDINGS: The left ventricle is normal in size. Transient Ischemia Dilatation of 0.87. The left ventricular ejection fraction is normal with a value of 73%. There is normal left ventricular wall thickening. Normal end diastolic and end systolic volumes. IMPRESSIONS 1. Myocardial perfusion imaging is normal. Attenuation artifact in inferior and inferolateral pichardo. 2. Overall left ventricular systolic function is normal without regional wall motion abnormalities, LVEF=73%. 3. EKG portion of the study will be reported separately. 4. Scan indicates low risk for cardiac events. Ebonie Mckeon MD (Electronically Signed) Final Date: 17 December 2022 18:08 S
[2022-12-17 09:20] VITALS: BP 169/91; PULSE 83
== END 2022-12-17 07:20 | disposition home or self-care (01) ==
LOC: CDL 07:19
PROVIDERS: PCP Clinical Nurse Specialist Adult Health; Visit Provider Clinical Nurse Specialist Adult Health
DX: R07.9 Chest pain, unspecified (principal)
CPT/HCPCS: 36415; 78452; 93017; A9500

== ENCOUNTER 2023-01-29 13:43 | Outpatient (CLI) | payer MEDICAID, SELFPAY ==
--- NOTE | 2023-01-29 13:45 | MR_ITS ---
WS: [id number] MRI BRAIN WITH AND WITHOUT CONTRAST HISTORY: dizziness COMPARISON: CT head 12/07/2022 TECHNIQUE: Multiplanar imaging performed through the brain with MultiHance 16 ml's IV. No acute infarcts are seen. Wei-white matter differentiation is well preserved. Mild atrophy and sma ll vessel ischemic disease. No hippocampal atrophy. Prominent LEFT perivascular space along the infer ior basal ganglia. Small lacunar infarct RIGHT frontal lobe. No susceptibility artifacts or prior lacunar infarcts. Ventricles and extra-axial spaces are normal. Clivus and pituitary gland are normal. Visualized posterior fossa and brainstem are also normal. Postcontrast images are negative for masses or vascular malformations. Dural venous sinuses are normal. Paranasal sinuses: Well aerated with no significant disease. Mastoid air cells: Moderate mucoperiosteal thickening and fluid in the RIGHT mastoid air cells. Calvarium and scalp: Normal. IMPRESSION: 1. No acute infarct or enhancing masses. 2. Fluid in the RIGHT mastoid air cells. No mass or enhancement along the internal auditory canals. 3. Very mild cerebral atrophy and small vessel ischemic disease.
[2023-01-29] MEDS: gadobenate dimeglumine 20 mL vial IV (14:33)
== END 2023-01-29 13:44 | disposition home or self-care (01) ==
PROVIDERS: PCP Clinical Nurse Specialist Adult Health; Visit Provider Clinical Nurse Specialist Adult Health
DX: R42 Dizziness and giddiness (principal); G31.9 Degenerative disease of nervous system, unspecified
CPT/HCPCS: 70553; A9577

== ENCOUNTER 2023-01-30 10:39 | Outpatient (CLI) | payer MEDICAID, SELFPAY | END 2023-01-30 10:40 | disposition home or self-care (01) | LOC: SLEEP 01-31 10:42 | PROVIDERS: PCP Clinical Nurse Specialist Adult Health; Visit Provider Clinical Nurse Specialist Adult Health | DX: G47.33 Obstructive sleep apnea (adult) (pediatric) (principal) | CPT/HCPCS: G0399 ==

== ENCOUNTER → 2023-02-28 08:56 | Outpatient (BNVA) | payer MEDICAID, SELFPAY | PROVIDERS: PCP Clinical Nurse Specialist Adult Health; Visit Provider Psychiatry & Neurology Neurology | DX: R42 Dizziness and giddiness (principal); H53.2 Diplopia; R29.898 Other symptoms and signs involving the musculoskeletal system | CPT/HCPCS: 99203 ==

== ENCOUNTER 2023-03-06 13:53 | Outpatient (CLI) | payer MEDICAID, SELFPAY ==
--- NOTE | 2023-03-06 14:15 | USCV_ITS ---
Evan Abel Age: 62 Gender: M : 1960 Exam Date: 03/06/2023 14:11 Ordering Phys: Steven Kirkland MD Technologist: KELSY Exam Location: [facility] Indication: Dizziness Risk Factors: Previous Vascular Surgery: Right Brachial BP: / Left Brachial BP: / Right Left Velocity (cm/s) Spectral Plaque Velocity (cm/s) Spectral Plaque Syst/Diast Broadening Syst/Diast Broadening 124.60/26.50 Prox CCA 138.90/ 30.90 122.50/21.30 Mid CCA 116.30/ 25.00 105.30/22.30 Distal CCA 106.00/ 26.30 48.90/ 16.90 Prox ICA 64.60 / 17.40 49.50/ 21.30 Mid ICA 64.40 / 25.60 57.60/ 23.80 Distal ICA 62.60 / 27.90 94.10 ECA 103.20 0.46 ICA/CCA 0.46 Antegrade Vertebral Antegrade 47.60/ 11.30 cm/s 60.50/ 19.10 cm/s Tri Subclavian Tri 101.9 136.3 0 0 CONCLUSIONS Right ICA stenosis <50%. Mild atheromatous plaque right carotid bulb/ICA. Left ICA stenosis <50%. Mild atheromatous plaque left carotid bulb/ICA. Normal antegrade Doppler flow noted in the right vertebral artery. Normal antegrade Doppler flow noted in the left vertebral artery. Dorian Bales MD (Electronically Signed) Final Date: 06 March 2023 15:50 S
== END 2023-03-06 13:54 | disposition home or self-care (01) ==
LOC: RAD 13:53
PROVIDERS: PCP Clinical Nurse Specialist Adult Health; Visit Provider Psychiatry & Neurology Neurology
DX: R42 Dizziness and giddiness (principal); I65.23 Occlusion and stenosis of bilateral carotid arteries
CPT/HCPCS: 93880

== ENCOUNTER → 2023-03-20 10:35 | Outpatient (BNVA) | payer MEDICAID, SELFPAY | PROVIDERS: PCP Clinical Nurse Specialist Adult Health; Visit Provider Anesthesiology Pain Medicine | DX: M54.41 Lumbago with sciatica, right side (principal); G89.29 Other chronic pain; R20.0 Anesthesia of skin; R20.2 Paresthesia of skin; M48.061 Spinal stenosis, lumbar region without neurogenic claudication; M47.816 Spondylosis without myelopathy or radiculopathy, lumbar region | CPT/HCPCS: 99204 ==

== ENCOUNTER → 2023-05-07 08:57 | Outpatient (BNVA) | payer MEDICAID, SELFPAY | PROVIDERS: PCP Clinical Nurse Specialist Adult Health; Visit Provider Anesthesiology Pain Medicine | DX: M51.17 Intervertebral disc disorders with radiculopathy, lumbosacral region (principal); G89.29 Other chronic pain; R20.0 Anesthesia of skin; R20.2 Paresthesia of skin; M48.061 Spinal stenosis, lumbar region without neurogenic claudication; M47.816 Spondylosis without myelopathy or radiculopathy, lumbar region | CPT/HCPCS: 99214 ==

== ENCOUNTER → 2023-05-15 09:24 | Outpatient (BNVA) | payer MEDICAID, SELFPAY | PROVIDERS: PCP Clinical Nurse Specialist Adult Health; Visit Provider Clinical Nurse Specialist Adult Health | DX: N39.0 Urinary tract infection, site not specified (principal); N41.9 Inflammatory disease of prostate, unspecified | CPT/HCPCS: 81000; 87086 ==

== ENCOUNTER 2023-06-01 15:43 | Emergency (ER) | payer MEDICAID, SELFPAY ==
[2023-06-01 15:46] VITALS: BP 154/84; PULSE 67; RESP 14; TEMP 36.4; O2SAT 97
[2023-06-01 16:04] VITALS: BP 124/73; BP 140/85; BP 144/87; PULSE 66; PULSE 74
--- NOTE | 2023-06-01 16:04 | ECG_ITS ---
[facility] Test Date: 2023-06-01 Pat Name: Evan Abel Department: Room: Gender: Male Bundle Cutter: : 1960 Requested By: Douglas Lundberg Order Number: [id number] Klever MD: Earl Wisdom M.D. Measurements Intervals [place] Rate: 60 P: 41 MA: 170 QRS: 21 QRSD: 86 T: 38 QT: 370 QTc: 371 Interpretive Statements SINUS RHYTHM Compared to ECG 12/07/2022 09:55:39 No significant changes Electronically Signed On 06-02-2023 21:34:35 CDT by Earl Wsidom M.D. [id number] f
--- NOTE | 2023-06-01 16:04 | CTR_ITS ---
PROCEDURE INFORMATION: Exam: CT Head Without Contrast Exam date and time: 06/01/2023 4:13 PM Age: 62 years old Clinical indication: Dizziness; Prior surgery; Surgery date: 6+ months; Surgery type: Temporal bone TECHNIQUE: Imaging protocol: Computed tomography of the head without contrast. Radiation optimization: All CT scans at this facility use at least one of these dose optimization techniques: automated exposure control; mA and/or kV adjustment per patient size (includes targeted exams where dose is matched to clinical indication); or iterative reconstruction. COMPARISON: MR head wo/w con [id number] 01/29/2023 1:59 PM RADIATION DOSE METRICS: Total DLP (mGy-cm): 1027.95 FINDINGS: Brain: No evidence of intra-axial or extra-axial hemorrhage. No mass effect or midline shift. Wei-white differentiation is maintained. Basilar cisterns are patent. Cerebral ventricles: No hydrocephalus. Paranasal sinuses: The visualized paranasal sinuses are well aerated. Mastoid air cells: Small right mastoid effusion. Left mastoids and both middle ears are clear. Bones/joints: The visualized calvarium and bony orbits are intact. There is evidence of prior fixation in the region of the right frontozygomatic suture. Soft tissues: No gross soft tissue abnormality. CT/CT head wo con* [id number] IMPRESSION: 1. No acute intracranial abnormality. 2. Small right-sided mastoid effusion.
--- NOTE | 2023-06-01 16:30 | ED_ITS ---
HPI - Dizziness 2 General: Chief Complaint: Dizziness Stated Complaint: dizziness Time Seen by Provider: 06/01/23 15:47 Source: patient Mode of arrival: ambulatory History of Present Illness: HPI Narrative: 62-year-old male presents emergency room with complaint of dizziness and intermittent double vision. Seen by ophthalmology for evaluation. No chest pain or discomfort. No chest pain. He is not noticing thing exacerbates or relieves. Patient has a history of previous stroke. MD elicited complaint: dizziness Onset (ago): month(s) (2) Timing: gradual onset Severity: moderate Exacerbating factors: nothing Relieving factors: nothing Associated symptoms: Denies chest pain, chills, malaise, nausea, nasal congestion or vomiting Review of Systems 2 Const: Denies: fever(s), chills, body aches, change in appetite, fatigue or malaise ENMT: Denies: throat pain, ear or mastoid pain, nasal discharge or nasal congestion Card: Denies: chest pain, edema, dyspnea on exertion or orthopnea Resp: Denies: dyspnea, productive cough or non-productive cough GI: Denies: abdominal pain, nausea, vomiting, hematemesis, coffee ground emesis, diarrhea, constipation, bloating, hematochezia or melena : Denies: flank pain, dysuria, urinary frequency or urinary urgency Skin/Breast: Denies: rash or pruritus PFSH ED 2 PFSH: Medical History MARQUEZ (obstructive sleep apnea) Fatigue Lumbar stenosis Dizziness and giddiness Eustachian tube dysfunction Mastoiditis Allergic rhinitis Generalized osteoarthritis Anxiety disorder lexapro and cymbalta made symptoms worse History of TIA (transient ischemic attack) Surgical History History of back surgery 2006 History of colonoscopy 2019 History of bilateral inguinal hernia repair 1992 Family History Mother Generalized anxiety disorder Father Diabetes Lung disease Son , sudden No problems noted. Social History Smoking and tobacco/nicotine status: never used tobacco/nicotine Physical Exam 2 Const: COMMON NORMALS: no acute distress GENERAL APPEARANCE: cooperative and comfortable ORIENTATION/CONSCIOUSNESS: Yes awake, Yes oriented to person, Yes oriented to place and Yes oriented to time HENMT: COMMON NORMALS: normocephalic, atraumatic, hearing grossly normal bilaterally, external ears normal, EAC's normal, TM's normal bilaterally, Normal nasal mucous membranes and turbinates present, moist oral mucous membranes and oropharynx normal HEAD & SCALP: normocephalic and atraumatic NOSE: Normal nasal mucous membranes and turbinates present EXTERNAL EAR: Yes external ears normal EXTERNAL AUDITORY CANAL: EAC's normal TYMPANIC MEMBRANE: TM's normal bilaterally Eye: COMMON NORMALS: Equal, round and reactive pupils present, EOMs intact bilaterally, conjunctivae normal and no scleral icterus CONJUNCTIVA: Yes conjunctivae normal PUPIL: Yes Equal, round and reactive pupils present Neck/C-Spine: COMMON NORMALS: full ROM, no lymphadenopathy, supple and no JVD Lymph: LYMPHATIC: no lymphadenopathy noted and no lymphedema noted Resp: COMMON NORMALS: normal respiratory effort, No retractions, No use of accessory muscles and clear to auscultation bilaterally AUSCULTATION: clear to auscultation bilaterally Cardio: COMMON NORMALS: no JVD, regular rate, regular rhythm and No murmurs present (Cardio) RATE: regular rate RHYTHM: regular rhythm GI: COMMON NORMALS: Soft to palpation and No hepatosplenomegaly present A USCULTATION: Yes normoactive bowel sounds PALPATION: Yes Soft to palpation, No Tenderness to palpation present (GI), No Guarding due to palpation present (GI) and Yes No hepatosplenomegaly present Extremity: COMMON NORMALS: normal to inspection, capillary refill normal, no clubbing, cyanosis or edema, no calf tenderness and no pedal edema Neuro: SENSORIUM/ORIENTATION: Yes oriented to person, Yes oriented to place and Yes oriented to time Skin: COMMON NORMALS: no rashes or lesions noted GENERAL SKIN EXAM: no rashes or lesions noted Course 2 Vital Signs: Vital signs: Vital Signs Temperature 97.6 F 06/01/23 15:46 Pulse Rate 66 06/01/23 16:04 Respiratory Rate 14 06/01/23 15:46 Blood Pressure 124/73 06/01/23 16:04 Pulse Oximetry 97 06/01/23 15:46 Oxygen Delivery Me thod Room Air 06/01/23 15:46 MDM - Dizziness Medical Decision Making CT head negative orthostatics unremarkable laboratory tests unremarkable. No signs of acute CVA. Use meclizine to use as needed. Follow-up with primary care if not improving or persist for referral to ENT as appropriate Medical Records I reviewed the patient's medical records. Lab Data I reviewed the patient's lab results. 06/01/23 16:57 06/01/23 16:[address] 06/01/23 16:04 IMPRESSION: 1. No acute intracranial abnormality. 2. Small right-sided mastoid effusion. Laboratory Results WBC 5.76 10^3/uL (3.29-11.43) 06/01/23 16:57 RBC 4.67 10^6/uL (3.85-5.65) 06/01/23 16:57 Hgb 14.20 g/dL (11.27-16.99) 06/01/23 16:57 Hct 44.2 % (37-53) 06/01/23 16:57 MCV 94.6 fl (82-101) 06/01/23 16:57 MCH 30.4 pg (27-33) 06/01/23 16:57 MCHC 32.1 g/dL (30-55) 06/01/23 16:57 RDW 12.4 % (12.1-15.1) 06/01/23 16:57 Plt Count 212 10^3/cmm (157-399) 06/01/23 16:57 MPV 10.9 fL (7.4-10.4) H 06/01/23 16:57 Neut % (Auto) 65.9 % 06/01/23 16:57 Lymph % (Auto) 23.6 % 06/01/23 16:57 [place] % (Auto) 7.8 % 06/01/23 16:57 Eos % (Auto) 2.3 % 06/01/23 16:57 Baso % (Auto) 0.2 % 06/01/23 16:57 Neut # (Auto) 3.80 10^3/uL (1.8-7.7) 06/01/23 16:57 Lymph # (Auto) 1.4 10^3/uL (0.8-4.8) 06/01/23 16:57 [place] # (Auto) 0.5 10^3/uL (0.2-0.9) 06/01/23 16:57 Eos # (Auto) 0.1 10^3/uL (0.0-0.8) 06/01/23 16:57 Baso # (Auto) 0.0 10^3/uL (0.0-0.1) 06/01/23 16:57 Nucleated RBC % (auto) 0 % 06/01/23 16:57 Nucleated RBCs # 0.0 /100WBC 06/01/23 16:57 Sodium 139 mmol/L (136-145) 06/01/23 16:57 Potassium 4.1 mmol/L (3.5-5.1) 06/01/23 16:57 Chloride 104 mmol/L (98-107) 06/01/23 16:57 Carbon Dioxide 26 mmol/L (22-29) 06/01/23 16:57 Anion Gap 13.1 (5-19) 06/01/23 16:57 BUN 20 mg/dL (8-23) 06/01/23 16:57 Creatinine 1.2 mg/dL (0.7-1.2) 06/01/23 16:57 GFR Calculation 61.1 mL/min (90-130) L 06/01/23 16:57 Glucose 85 mg/dL (65-115) 06/01/23 16:57 Calculated Osmolality 290 mOsm/kg (285-295) 06/01/23 16:57 Calcium 8.9 mg/dL (8.5-10.5) 06/01/23 16:57 Total Bilirubin 0.6 mg/dL (0.15-1.2) 06/01/23 16:57 AST 18 U/L (0-40) 06/01/23 16:57 ALT 14 U/L (0-41) 06/01/23 16:57 Alkaline Phosphatase 72 U/L (40-130) 06/01/23 16:57 Total Protein 6.4 g/dL (6.6-8.7) L 06/01/23 16:57 Albumin 4.1 g/dL (3.5-5.2) 06/01/23 16:57 Globulin 2.3 g/dL (1.3-4.6) 06/01/23 16:57 All radiology interpretation(s) finalized by discharge Discharge Plan Discharge Patient Disposition: Home Clinical Impression: Dizziness Condition: Stable Prescriptions: New meclizine 25 mg tablet 25 mg PO QID PRN (Reason: dizziness) Qty: 20 0RF No Action alprazolam 0.25 mg tablet 0.25 mg PO DAILY PRN (Reason: Anxiety) Qty: 30 1RF aspirin [Adult Low Dose Aspirin] 81 mg tablet,delayed release (DR/EC) 81 mg PO DAILY Qty: 30 0RF gabapentin 100 mg capsule 100 mg PO BID Qty: 60 0RF ciprofloxacin HCl [Cipro] 500 mg tablet 500 mg PO BID 10 Days Qty: 20 0RF baclofen 5 mg tablet 5 mg PO TID PRN (Reason: Muscle Spasticity) Qty: 60 0RF Hold Instructions: Medication Not Effective meloxicam 15 mg tablet 15 mg PO QAM Qty: 90 3RF lisinopril 5 mg tablet 5 mg PO DAILY Qty: 90 3RF albuterol sulfate [ProAir HFA] 90 mcg/actuation HFA aerosol inhaler 1 - 2 puff INHALATION Q4H PRN (Reason: Shortness Of Breath) Qty: 8.5 0RF azelastine 137 mcg (0.1 %) aerosol,spray 1 spray intranasal BID Qty: 30 6RF Rx Instructions: administer into each nostril (DME) auto-titrating CPAP 6-16 CM with tubing, mask and all other supplies See Rx Instructions .Route .MEDSUPPLY Qty: 1 0RF Rx Instructions: As directed Discharge Orders: Discharge ED (Routine); Ordered 06/01/23 Ordered By: Douglas Hudson Referrals: Conrado Theodore, STITCHER SET UP OPERATOR AUTOMATIC [Primary Care Provider] - Discharge Diet: Usual diet Discharge Activity: Resume usual activity Patient Instructions: Opioid Safety, Pain Management Activity Restrictions/Additional Instructions: Thank you for choosing [facility] for your healthcare needs today. Please realize this is an emergency room and that we are providing you with a medical screening exam and this may not be complete and all inclusive of all the testing and or work up that you may need to determine your ailment or severity of your illness. It is very important that you follow up as instructed or that you return to the Emergency Department should you have concerns or if your condition changes or worsens in any way. You were seen today for dizziness been going on for a couple of months. Laboratory tests and CT of your head were unremarkable. You are given meclizine to use as needed if symptoms persist follow-up with your primary care doctor they can refer you to ENT if felt appropriate Coding Level of Care Code ED Burial Vault Deliverer And Installer for Carlyle Denny
[2023-06-01 17:02] LABS: Basophils % 0.2 %; Eosinophils # 0.1 10^3/uL (0.0-0.8); Eosinophils % 2.3 %; Hematocrit 44.2 % (37-53); Lymphocytes # 1.4 10^3/uL (0.8-4.8); Lymphocytes % 23.6 %; Mean Corpuscular HGB Conc 32.1 g/dL (30-55); Mean Corpuscular Hemoglobin 30.4 pg (27-33); Mean Corpuscular Volume 94.6 fl (82-101); Mean Platelet Volume 10.9 fL (7.4-10.4); Monocytes # 0.5 10^3/uL (0.2-0.9); Monocytes % 7.8 %; Neutrophils % 65.9 %; Nucleated Red Blood Cells % 0 %; Platelet Count 212 10^3/cmm (157-399); Red Blood Count 4.67 10^6/uL (3.85-5.65); Red Cell Distribution Width 12.4 % (12.1-15.1); White Blood Count 5.76 10^3/uL (3.29-11.43)
[2023-06-01 17:24] LABS: Alanine Aminotransferase 14 U/L (0-41); Albumin Level 4.1 g/dL (3.5-5.2); Alkaline Phosphatase 72 U/L (40-130); Anion Gap 13.1 (5-19); Aspartate Amino Transferase 18 U/L (0-40); Blood Urea Nitrogen 20 mg/dL (8-23); Calcium 8.9 mg/dL (8.5-10.5); Carbon Dioxide 26 mmol/L (22-29); Chloride 104 mmol/L (98-107); Creatinine Clr Calc Pharmacy 68.9489; Globulin 2.3 g/dL (1.3-4.6); Glomerular Filtration Rate 61.1 mL/min (90-130); Glucose 85 mg/dL (65-115); Osmolality Calculated 290 mOsm/kg (285-295); Potassium 4.1 mmol/L (3.5-5.1); Sodium 139 mmol/L (136-145); Total Bilirubin 0.6 mg/dL (0.15-1.2); Total Protein 6.4 g/dL (6.6-8.7)
[2023-06-01 17:51] VITALS: BP 123/80; PULSE 70; O2SAT 97
== END 2023-06-01 17:52 | disposition home or self-care (01) ==
PROVIDERS: Emergency Provider Family Medicine; PCP Clinical Nurse Specialist Adult Health
DX: R42 Dizziness and giddiness (principal); Z79.82 Long term (current) use of aspirin; Z86.73 Personal history of transient ischemic attack (TIA), and cerebral infarction without residual deficits
CPT/HCPCS: 36415; 70450; 80053; 85025; 93005; 99284

== ENCOUNTER → 2023-06-05 12:47 | Outpatient (BNVA) | payer MEDICAID, SELFPAY | PROVIDERS: PCP Clinical Nurse Specialist Adult Health; Visit Provider Psychiatry & Neurology Neurology | DX: R42 Dizziness and giddiness (principal); H53.2 Diplopia; R29.898 Other symptoms and signs involving the musculoskeletal system | CPT/HCPCS: 99212 ==

== ENCOUNTER 2023-07-10 07:55 | Outpatient (CLI) | payer MEDICAID, SELFPAY ==
--- NOTE | 2023-07-10 08:30 | MR_ITS ---
WS: [id number] MR CERVICAL SPINE WO/W COMPARISON: MRI 2006 HISTORY: R42 - Dizziness and giddiness TECHNIQUE: Sagittal T1, T2 and T2 inversion recovery; axial T2, T2 gradient and fiesta. Post gadolini um imaging with fat saturation technique. FINDINGS: Mild cervical curve. Prior postoperative changes ACDF C5-6. Mild disc bulging C6-7. Cord signal is no rmal. No high-grade central canal stenosis. No abnormal gadolinium enhancement. Postoperative changes are new since 2006. C2-3: Mild facet arthropathy. Mild LEFT and no significant RIGHT foraminal narrowing. Spinal canal is patent. C3-4: Moderate facet arthropathy. Mild LEFT greater than RIGHT bony foraminal narrowing. Spinal canal is patent. C4-5: Mild disc bulging with osteophytic ridging. Moderate facet arthropathy. Mild LEFT greater than RIGHT bony foraminal narrowing. Spinal canal is patent. C5-6: Postoperative changes ACDF. Moderate facet arthropathy. Mild LEFT greater than RIGHT bony ashwin inal narrowing. C6-7: Mild disc bulging with a shallow central disc protrusion. Slight contact of the cervical cord. Severe LEFT and moderate to severe RIGHT bony foraminal narrowing. Moderate facet arthropathy. Mild c entral canal stenosis. C7-T1: Mild LEFT greater than RIGHT foraminal narrowing. Spinal canal is patent. Mild facet arthropat hy. IMPRESSION: 1. Prior postoperative changes ACDF C5-6. 2. Disc bulging worse at C6-7 with a broad-based shallow central protrusion. Slight contact of the c ervical cord. Mild central canal stenosis. 3. Severe LEFT and moderate to severe RIGHT bony foraminal narrowing C6-7. 4. Otherwise mild bony foraminal narrowing described above. 5. No abnormal gadolinium enhancement.
--- NOTE | 2023-07-10 09:15 | MR_ITS ---
WS: [id number] MRA CAROTID WITHOUT AND WITH GADOLINIUM ENHANCEMENT TECHNIQUE: Axial 2-D TOF and gadolinium bolus images obtained with axial images and axial, sagittal, and coronal 2-D reformatted images. CLINICAL INFORMATION: R42 - Dizziness and giddiness COMPARISON: None. FINDINGS: Both vertebral arteries are patent. LEFT dominant vertebral artery. Vertebral arteries are patent to the basilar junction. RIGHT: RIGHT common carotid artery is patent. No significant RIGHT ICA stenosis. RIGHT ICA is patent to the skull base. Mild focal ICA stenosis with slight kinking at the skull base in the proximal arin ous segment best seen on the gadolinium bolus images. This can be seen with prior trauma or focal dis section. No flow-limiting stenosis today. LEFT: LEFT common carotid artery is patent. No significant LEFT ICA stenosis. LEFT ICA is patent to t he skull base. Tortuous LEFT cervical ICA. Proximal subclavian arteries are patent. IMPRESSION: 1. No significant cervical ICA stenosis. 2. The vertebrals are patent. LEFT dominant vertebral artery. 3. Focal kinking with mild stenosis of the RIGHT ICA at the skull base can be seen with sequelae fro m prior trauma or dissection. No flow-limiting stenosis today. See bookmarked images 4. No other suspicious findings.
--- NOTE | 2023-07-10 10:00 | MR_ITS ---
WS: [id number] MRA HEAD TECHNIQUE: Axial 3-D TOF images obtained with axial images and axial, sagittal, and coronal 2-D refor matted images. CLINICAL INFORMATION: R42 - Dizziness and giddiness COMPARISON: MRI 01/29/[address] 06/01/2023 FINDINGS: Distal vertebral arteries are patent. Basilar artery is patent. Normal vascularity to the [employer]ETING territo ry bilaterally. Both ICAs are patent at the skull base. Normal vascularity to the [place] and MCA territories bilaterally . No evidence of proximal flow-limiting stenosis or aneurysm. IMPRESSION: 1. No evidence of proximal flow-limiting stenosis or aneurysm. 2. Mild intracranial atheromatous disease. 3. RIGHT mastoid effusion. 4. Unremarkable intracranial MRA.
== END 2023-07-10 07:56 | disposition home or self-care (01) ==
LOC: RAD 07:56
PROVIDERS: PCP Clinical Nurse Specialist Adult Health; Visit Provider Psychiatry & Neurology Neurology
DX: R42 Dizziness and giddiness (principal); M48.061 Spinal stenosis, lumbar region without neurogenic claudication; M54.41 Lumbago with sciatica, right side; M47.816 Spondylosis without myelopathy or radiculopathy, lumbar region
CPT/HCPCS: 70544; 70548; 72156; 99214; A9577

== ENCOUNTER → 2023-07-23 10:40 | Outpatient (BNVA) | payer MEDICAID, SELFPAY | PROVIDERS: PCP Clinical Nurse Specialist Adult Health; Referring Provider Anesthesiology Pain Medicine; Visit Provider Orthopaedic Surgery | DX: M54.9 Dorsalgia, unspecified (principal); M54.2 Cervicalgia; M54.41 Lumbago with sciatica, right side; G89.29 Other chronic pain; M47.22 Other spondylosis with radiculopathy, cervical region | CPT/HCPCS: 36415; 72040; 72100; 80053; 81003; 85025; 99204 ==

== ENCOUNTER → 2023-08-02 08:11 | Outpatient (BNVA) | payer MEDICAID, SELFPAY | PROVIDERS: PCP Clinical Nurse Specialist Adult Health; Visit Provider Otolaryngology | DX: M47.22 Other spondylosis with radiculopathy, cervical region (principal) | CPT/HCPCS: 31575; 99202; 99203 ==

== ENCOUNTER 2023-10-03 07:09 | Emergency (ER) | payer MEDICAID, SELFPAY ==
[2023-10-03 07:18] VITALS: BP 169/84; PULSE 69; TEMP 36.5; O2SAT 98; BMI 25.8
--- NOTE | 2023-10-03 07:29 | ED_ITS ---
HPI - Male Genitourinary 2 General: Chief complaint: Urogenital-Male Stated complaint: Dizzy, can't urinate Time Seen by Provider: 10/03/23 07:22 Source: patient Mode of arrival: ambulatory History of Present Illness: 59-year-old male presents emergency room complaining of dizziness difficulty urination. He has had some diarrhea as well. Complains of dysuria yesterday but unable to urinate at all today he does not have any abdominal discomfort or fullness. Denies any hematuria no history of any renal stones. Patient on multiple medications reviewed in the chart he denies any recent use of antihistamines or decongestants. No history of nephrolithiasis no flank pain at this time Onset (ago): day(s) Severity: mild Relieving factors: none Exacerbating factors: urination Associated symptoms: Reports dysuria; Deny discharge, fevers/chills, hematuria, nausea, rash, swelling, urinary incontinence, urinary retention, mass or vomiting Review of Systems 2 Const: Denies: fever(s) or chills Card: Denies: chest pain Resp: Denies: dyspnea GI: Denies: abdominal pain, nausea or vomiting : Reports: difficulty urinating, dysuria and difficulty starting urination; Denies: urinary frequency, urinary urgency, urinary incontinence or hematuria Musc: Denies: neck pain or back pain Skin/Breast: Denies: rash PFSH ED 2 PFSH: Medical History GERD (gastroesophageal reflux disease) Cervical spondylosis with radiculopathy disc degeneration at C6-7 Insomnia Facet arthropathy, lumbar BPH (benign prostatic hyperplasia) failed flomax and finasteride. MARQUEZ (obstructive sleep apnea) noncompliant with CPAP Lumbar stenosis Dizziness and giddiness Eustachian tube dysfunction Mastoiditis Allergic rhinitis Generalized osteoarthritis Anxiety disorder lexapro and cymbalta made symptoms worse History of TIA (transient ischemic attack) Surgical History History of back surgery 2006 History of colonoscopy 2019 History of bilateral inguinal hernia repair 1992 Family History Mother Generalized anxiety disorder Father Diabetes Lung disease Son , sudden No problems noted. Social History Smoking and tobacco/nicotine status: never used tobacco/nicotine Physical Exam 2 Const: COMMON NORMALS: no acute distress GENERAL APPEARANCE: cooperative and comfortable ORIENTATION/CONSCIOUSNESS: Yes awake, Yes oriented to person, Yes oriented to place and Yes oriented to time HENMT: COMMON NORMALS: normocephalic, atraumatic and hearing grossly normal bilaterally HEAD & SCALP: normocephalic and atraumatic Resp: COMMON NORMALS: normal respiratory effort, No retractions, No use of accessory muscles and clear to auscultation bilaterally AUSCULTATION: clear to auscultation bilaterally Cardio: COMMON NORMALS: regular rate, regular rhythm and No murmurs present (Cardio) RATE: regular rate RHYTHM: regular rhythm GI: COMMON NORMALS: Soft to palpation and No hepatosplenomegaly present A USCULTATION: Yes normoactive bowel sounds PALPATION: Yes Soft to palpation, No Tenderness to palpation present (GI), No Guarding due to palpation present (GI) and Yes No hepatosplenomegaly present Extremity: COMMON NORMALS: normal to inspection, capillary refill normal, no clubbing, cyanosis or edema, no calf tenderness and no pedal edema Neuro: SENSORIUM/ORIENTATION: Yes oriented to person, Yes oriented to place and Yes oriented to time Skin: COMMON NORMALS: no rashes or lesions noted GENERAL SKIN EXAM: no rashes or lesions noted Course 2 Vital Signs: Vital signs: Vital Signs Temperature 97.7 F 10/03/23 07:18 Pulse Rate 60 10/03/23 09:44 Blood Pressure 121/77 10/03/23 09:44 Pulse Oximetry 100 10/03/23 09:44 Oxygen Delivery Me thod Room Air 10/03/23 09:00 MDM - Male Medical Decision Making Labs reviewed. . No acute findings no cystitis he does have a little dizziness but it is improved he has no focal neurologic deficits. He had this on and off for some time encourage use of antihistamines follow-up with primary care can refer to ENT if has any worsening symptoms. Repeat exam at time of discharge there is no focal neurologic deficits noted. Medical Records I reviewed the patient's medical records. Lab Data I reviewed the patient's lab results. 10/03/23 07:30 10/03/23 07:30 Laboratory Results WBC 6.40 10^3/uL (3.29-11.43) 10/03/23 07:30 RBC 5.44 10^6/uL (3.85-5.65) 10/03/23 07:30 Hgb 16.60 g/dL (11.27-16.99) 10/03/23 07:30 Hct 49.8 % (37-53) 10/03/23 07:30 MCV 91.5 fl (82-101) 10/03/23 07:30 MCH 30.5 pg (27-33) 10/03/23 07:30 MCHC 33.3 g/dL (30-55) 10/03/23 07:30 RDW 12.5 % (12.1-15.1) 10/03/23 07:30 Plt Count 245 10^3/cmm (157-399) 10/03/23 07:30 MPV 11.0 fL (7.4-10.4) H 10/03/23 07:30 Neut % (Auto) 64.7 % 10/03/23 07:30 Lymph % (Auto) 23.4 % 10/03/23 07:30 [place] % (Auto) 8.9 % 10/03/23 07:30 Eos % (Auto) 2.5 % 10/03/23 07:30 Baso % (Auto) 0.3 % 10/03/23 07:30 Neut # (Auto) 4.14 10^3/uL (1.8-7.7) 10/03/23 07:30 Lymph # (Auto) 1.5 10^3/uL (0.8-4.8) 10/03/23 07:30 [place] # (Auto) 0.6 10^3/uL (0.2-0.9) 10/03/23 07:30 Eos # (Auto) 0.2 10^3/uL (0.0-0.8) 10/03/23 07:30 Baso # (Auto) 0.0 10^3/uL (0.0-0.1) 10/03/23 07:30 Nucleated RBC % (auto) 0 % 10/03/23 07:30 Nucleated RBCs # 0.0 /100WBC 10/03/23 07:30 Sodium 142 mmol/L (136-145) 10/03/23 07:30 Potassium 4.5 mmol/L (3.5-5.1) 10/03/23 07:30 Chloride 106 mmol/L (98-107) 10/03/23 07:30 Carbon Dioxide 23 mmol/L (22-29) 10/03/23 07:30 Anion Gap 17.5 (5-19) 10/03/23 07:30 BUN 18 mg/dL (8-23) 10/03/23 07:30 Creatinine 1.0 mg/dL (0.7-1.2) 10/03/23 07:30 GFR Calculation 75.5 mL/min (90-130) L 10/03/23 07:30 Glucose 101 mg/dL (65-115) 10/03/23 07:30 Calculated Osmolality 296 mOsm/kg (285-295) H 10/03/23 07:30 Calcium 8.6 mg/dL (8.5-10.5) 10/03/23 07:30 Total Bilirubin 0.9 mg/dL (0.15-1.2) 10/03/23 07:30 AST 24 U/L (0-40) 10/03/23 07:30 ALT 26 U/L (0-41) 10/03/23 07:30 Alkaline Phosphatase 95 U/L (40-130) 10/03/23 07:30 Total Protein 7.7 g/dL (6.6-8.7) 10/03/23 07:30 Albumin 4.7 g/dL (3.5-5.2) 10/03/23 07:30 Globulin 3.0 g/dL (1.3-4.6) 10/03/23 07:30 Urine Color Dark yellow (Yellow) A 10/03/23 07:47 Urine Appearance Clear (CLEAR) 10/03/23 07:47 Urine pH 5 (5-7) 10/03/23 07:47 Ur Specific [place] 1.025 (1.005-1.030) 10/03/23 07:47 Urine Protein Neg (Negative) 10/03/23 07:47 Urine Glucose (UA) Norm (Normal) 10/03/23 07:47 Urine Ketones Negative (Negative) 10/03/23 07:47 Urine Blood Neg (Negative) 10/03/23 07:47 Urine Nitrate Negative (Negative) 10/03/23 07:47 Urine Bilirubin Neg (Negative) 10/03/23 07:47 Urine Urobilinogen Norm mg/dL (Negative) 10/03/23 07:47 Ur Leukocyte Esterase Negative (Negative) 10/03/23 07:47 All radiology interpretation(s) finalized by discharge Discharge Plan Discharge Patient Disposition: Home Clinical Impression: Dizziness, Diarrhea Condition: Stable Prescriptions: No Action hydroxyzine HCl 10 mg tablet 10 mg PO .QHS PRN (Reason: insomnia) Qty: 14 0RF lisinopril 5 mg tablet 5 mg PO DAILY Qty: 90 3RF meloxicam 15 mg tablet 15 mg PO QAM Qty: 90 3RF (DME) auto-titrating CPAP 6-16 CM with tubing, mask and all other supplies See Rx Instructions .Route .MEDSUPPLY Qty: 1 0RF Rx Instructions: As directed terazosin 1 mg capsule 1 mg PO DAILY Qty: 30 1RF omeprazole 20 mg capsule,delayed release(DR/EC) 20 mg PO DAILY PRN (Reason: Acid Reflux) finasteride 5 mg tablet 5 mg PO DAILY Discharge Orders: Discharge ED (Routine); Ordered 10/03/23 Ordered By: Douglas Hudson Referrals: Conrado Theodore, COMMERCIAL FINANCE MANAGER [Primary Care Provider] - Discharge Diet: Usual diet Discharge Activity: Resume usual activity Patient Instructions: Opioid Safety, Pain Management Activity Restrictions/Additional Instructions: Thank you for choosing [facility] for your healthcare needs today. It is very important that you follow up as instructed or that you return to the Emergency Department should you have concerns or if your condition changes or worsens in any way. Coding Level of Care Code ED Police Or Patrol Park Officer for Carlyle Denny
[2023-10-03 07:37] LABS: Basophils % 0.3 %; Eosinophils # 0.2 10^3/uL (0.0-0.8); Eosinophils % 2.5 %; Hematocrit 49.8 % (37-53); Lymphocytes # 1.5 10^3/uL (0.8-4.8); Lymphocytes % 23.4 %; Mean Corpuscular HGB Conc 33.3 g/dL (30-55); Mean Corpuscular Hemoglobin 30.5 pg (27-33); Mean Corpuscular Volume 91.5 fl (82-101); Monocytes # 0.6 10^3/uL (0.2-0.9); Monocytes % 8.9 %; Neutrophils # 4.14 10^3/uL (1.8-7.7); Neutrophils % 64.7 %; Nucleated Red Blood Cells % 0 %; Platelet Count 245 10^3/cmm (157-399); Red Blood Count 5.44 10^6/uL (3.85-5.65); Red Cell Distribution Width 12.5 % (12.1-15.1)
[2023-10-03 07:57] LABS: Alanine Aminotransferase 26 U/L (0-41); Albumin Level 4.7 g/dL (3.5-5.2); Alkaline Phosphatase 95 U/L (40-130); Anion Gap 17.5 (5-19); Aspartate Amino Transferase 24 U/L (0-40); Blood Urea Nitrogen 18 mg/dL (8-23); Calcium 8.6 mg/dL (8.5-10.5); Carbon Dioxide 23 mmol/L (22-29); Chloride 106 mmol/L (98-107); Creatinine Clr Calc Pharmacy 81.7684; Glomerular Filtration Rate 75.5 mL/min (90-130); Glucose 101 mg/dL (65-115); Osmolality Calculated 296 mOsm/kg (285-295); Potassium 4.5 mmol/L (3.5-5.1); Sodium 142 mmol/L (136-145); Total Bilirubin 0.9 mg/dL (0.15-1.2); Total Protein 7.7 g/dL (6.6-8.7)
[2023-10-03 08:01] LABS: Add Urine Microscopic? NO; Charge for UA Resulting for Rev
[2023-10-03 08:07] LABS: Bilirubin Urine Neg (Negative); Blood Urine Neg (Negative); Glucose Urine UA Norm (Normal); Ketones Urine Negative (Negative); Leukocyte Esterase Urine Negative (Negative); Nitrate Urine Negative (Negative); Protein Urine Neg (Negative); Specific Gravity, Urine 1.025 (1.005-1.030); Urine Appearance Clear (CLEAR); Urine Color Dark Yellow (Yellow); Urobilinogen Urine Norm (Negative); pH Urine 5 (5-7)
[2023-10-03] MEDS: sodium chloride 0.9% 1,000 ML 999 ML IV (08:40)
[2023-10-03 09:00] VITALS: BP 128/68; PULSE 58; O2SAT 98
[2023-10-03 09:44] VITALS: BP 121/77; PULSE 60; O2SAT 100
== END 2023-10-03 09:45 | disposition home or self-care (01) ==
PROVIDERS: Emergency Provider Family Medicine; PCP Clinical Nurse Specialist Adult Health
DX: R42 Dizziness and giddiness (principal); R19.7 Diarrhea, unspecified; Z86.73 Personal history of transient ischemic attack (TIA), and cerebral infarction without residual deficits
CPT/HCPCS: 51798; 80053; 81003; 85025; 96360; 99284; J7030

== ENCOUNTER → 2023-10-16 10:48 | Outpatient (BNVA) | payer MEDICAID, SELFPAY | PROVIDERS: PCP Clinical Nurse Specialist Adult Health; Visit Provider Clinical Nurse Specialist Adult Health | DX: R42 Dizziness and giddiness (principal) | CPT/HCPCS: 82306; 82607; 84443; 85025; 85651; 86140 ==

== ENCOUNTER → 2023-10-26 11:02 | Outpatient (BNVA) | payer MEDICAID, SELFPAY | PROVIDERS: PCP Clinical Nurse Specialist Adult Health; Visit Provider Emergency Medicine | DX: R39.9 Unspecified symptoms and signs involving the genitourinary system (principal) | CPT/HCPCS: 81000 ==

== ENCOUNTER → 2023-11-06 14:06 | Outpatient (BNVA) | payer MEDICAID, SELFPAY | PROVIDERS: PCP Clinical Nurse Specialist Adult Health; Visit Provider Psychiatry & Neurology Neurology | DX: R42 Dizziness and giddiness (principal); H53.2 Diplopia; R29.898 Other symptoms and signs involving the musculoskeletal system; I10 Essential (primary) hypertension | CPT/HCPCS: 99212 ==

== ENCOUNTER 2023-11-09 06:55 | Emergency (ER) | payer MEDICAID, SELFPAY ==
--- NOTE | 2023-11-09 07:04 | ECG_ITS ---
[facility] Test Date: 2023-11-09 Pat Name: Evan Abel Department: Room: Gender: Male Carton Packaging Machine Operator: : 1960 Requested By: Douglas Lundberg Order Number: [id number] Klever MD: Earl Wisdom M.D. Measurements Intervals [place] Rate: 68 P: 32 [place]: 185 QRS: 33 QRSD: 102 T: 41 QT: 374 QTc: 399 Interpretive Statements SINUS RHYTHM Compared to ECG 06/01/2023 15:50:24 No significant changes Electronically Signed On 11-09-2023 18:46:05 CDT by Earl Wisdom M.D. [email or web address]
[2023-11-09 07:22] VITALS: BP 145/90; PULSE 73; RESP 18; TEMP 36.8; O2SAT 98
[2023-11-09 07:24] VITALS: BP 126/82; BP 133/83; BP 134/80; PULSE 65; PULSE 71
[2023-11-09 07:55] LABS: Basophils % 0.3 %; Eosinophils # 0.2 10^3/uL (0.0-0.8); Hematocrit 46.8 % (37-53); Lymphocytes # 1.5 10^3/uL (0.8-4.8); Lymphocytes % 25.5 %; Mean Corpuscular HGB Conc 33.3 g/dL (30-55); Mean Corpuscular Hemoglobin 30.5 pg (27-33); Mean Corpuscular Volume 91.6 fl (82-101); Mean Platelet Volume 10.6 fL (7.4-10.4); Monocytes # 0.5 10^3/uL (0.2-0.9); Monocytes % 7.8 %; Neutrophils # 3.61 10^3/uL (1.8-7.7); Neutrophils % 62.2 %; Nucleated Red Blood Cells % 0 %; Platelet Count 251 10^3/cmm (157-399); Red Blood Count 5.11 10^6/uL (3.85-5.65); Red Cell Distribution Width 12.4 % (12.1-15.1)
--- NOTE | 2023-11-09 08:03 | ED_ITS ---
HPI - General Adult 2 General: Chief complaint: General Medical Stated complaint: dry mouth, dizziness Time Seen by Provider: 11/09/23 07:03 History of Present Illness: 63-year-old male presents emergency room complaining of dry mouth and dizziness which he relates to his blood pressure medications. He stopped taking lisinopril for a time because he felt like he was going to be a small excessively dry he restarted it when his blood pressure is elevated. Again he does have some dizziness as well. Usually suggestive of a change in position. No ear pain no drainage denies chest pain or shortness of breath. No sores in the mouth he has not had chronic cough no difficulty speech or swallowing. No rash. Associated symptoms: Deny chest pain, dyspnea or rash Related Data Home Medications Medication Instructions Recorded Confirmed omeprazole 20 mg capsule,delayed 20 mg PO DAILY PRN Acid Reflux 10/03/23 11/06/23 release finasteride 5 mg tablet mg PO 11/06/23 11/06/23 gabapentin 100 mg capsule mg PO 11/06/23 11/06/23 terazosin 1 mg capsule mg PO 11/06/23 11/06/23 tizanidine 4 mg tablet 4 mg PO 11/06/23 11/06/23 Previous Rx's Medication Instructions Recorded meloxicam 15 mg tablet 15 mg PO QAM #90 tabs 08/06/23 auto-titrating CPAP 6-16 CM with #1 ea 10/16/23 tubing, mask and all other supplies ciprofloxacin HCl 500 mg tablet 500 mg PO BID 7 days #14 tabs 10/26/23 (Cipro) amlodipine 2.5 mg tablet 2.5 mg PO DAILY #30 tabs 11/09/23 Allergies Allergy/AdvReac Type Severity Reaction Status Date / Time tamsulosin Allergy Intermediate ADR-Dizzine Verified 11/06/23 09:34 ss escitalopram [From Lexapro] AdvReac Intermediate ADR-Anxiety Verified 11/06/23 09:34 Review of Systems 2 Const: Denies: fever(s) or chills Card: Denies: chest pain Resp: Denies: dyspnea GI: Denies: abdominal pain : Denies: dysuria, urinary frequency or urinary urgency Musc: Denies: neck pain or back pain Skin/Breast: Denies: rash PFSH ED 2 PFSH: Medical History GERD (gastroesophageal reflux disease) Cervical spondylosis with radiculopathy disc degeneration at C6-7 Insomnia Facet arthropathy, lumbar BPH (benign prostatic hyperplasia) failed flomax and finasteride. MARQUEZ (obstructive sleep apnea) noncompliant with CPAP Lumbar stenosis Dizziness and giddiness Eustachian tube dysfunction Mastoiditis Allergic rhinitis Generalized osteoarthritis Anxiety disorder lexapro and cymbalta made symptoms worse History of TIA (transient ischemic attack) Surgical History History of back surgery 2006 History of colonoscopy 2019 History of bilateral inguinal hernia repair 1992 Family History Mother Generalized anxiety disorder Father Diabetes Lung disease Son , sudden No problems noted. Social History Smoking and tobacco/nicotine status: never used tobacco/nicotine Physical Exam 2 Const: COMMON NORMALS: no acute distress GENERAL APPEARANCE: cooperative and comfortable ORIENTATION/CONSCIOUSNESS: Yes awake, Yes oriented to person, Yes oriented to place and Yes oriented to time HENMT: COMMON NORMALS: normocephalic, atraumatic, hearing grossly normal bilaterally, external ears normal, EAC's normal, TM's normal bilaterally and Normal nasal mucous membranes and turbinates present HEAD & SCALP: n ormocephalic and atraumatic NOSE: Normal nasal mucous membranes and turbinates present EXTERNAL EAR: Yes external ears normal EXTERNAL AUDITORY CANAL: EAC's normal TYMPANIC MEMBRANE: TM's normal bilaterally Eye: COMMON NORMALS: Equal, round and reactive pupils present, EOMs intact bilaterally, conjunctivae normal and no scleral icterus CONJUNCTIVA: Yes conjunctivae normal PUPIL: Yes Equal, round and reactive pupils present Neck/C-Spine: COMMON NORMALS: full ROM, no lymphadenopathy, supple and no JVD Lymph: LYMPHATIC: no lymphadenopathy noted and no lymphedema noted Resp: COMMON NORMALS: normal respiratory effort, No retractions, No use of accessory muscles and clear to auscultation bilaterally AUSCULTATION: clear to auscultation bilaterally Cardio: COMMON NORMALS: no JVD, regular rate, regular rhythm and No murmurs present (Cardio) RATE: regular rate RHYTHM: regular rhythm GI: COMMON NORMALS: Soft to palpation and No hepatosplenomegaly present A USCULTATION: Yes normoactive bowel sounds PALPATION: Yes Soft to palpation, No Tenderness to palpation present (GI), No Guarding due to palpation present (GI) and Yes No hepatosplenomegaly present Extremity: COMMON NORMALS: normal to inspection, capillary refill normal, no clubbing, cyanosis or edema, no calf tenderness and no pedal edema Neuro: SENSORIUM/ORIENTATION: Yes oriented to person, Yes oriented to place and Yes oriented to time OTHER: No focal neurologic deficits are noted on exam no nystagmus. Skin: COMMON NORMALS: no rashes or lesions noted GENERAL SKIN EXAM: no rashes or lesions noted Course 2 Vital Signs: Vital signs: Vital Signs Temperature 98.2 F 11/09/23 07:22 Pulse Rate 65 11/09/23 07:24 Respiratory Rate 18 11/09/23 07:22 Blood Pressure 126/82 11/09/23 07:24 Pulse Oximetry 98 11/09/23 07:22 Oxygen Delivery Me thod Room Air 11/09/23 07:22 MDM - General Adult Medical Decision Making From his description of things I do not think he is having an allergic reaction to the PRESTON inhibitor. He describes a dry mouth but no real sore throat no cough. Nothing is suggestive of an PRESTON inhibitor cough due to buildup of bradykinin's. In any event he did report some improvement with stopping lisinopril. Will have him stop his lisinopril start him on amlodipine 2.5 mg daily. His other lab work does not show any significant abnormalities. He should follow-up with his doctor next week to reevaluate blood pressure and symptoms. If any worsening or change in symptoms return to the emergency room Lab Data 11/09/23 07:49 11/09/23 07:49 Laboratory Results WBC 5.80 10^3/uL (3.29-11.43) 11/09/23 07:49 RBC 5.11 10^6/uL (3.85-5.65) 11/09/23 07:49 Hgb 15.60 g/dL (11.27-16.99) 11/09/23 07:49 Hct 46.8 % (37-53) 11/09/23 07:49 MCV 91.6 fl (82-101) 11/09/23 07:49 MCH 30.5 pg (27-33) 11/09/23 07:49 MCHC 33.3 g/dL (30-55) 11/09/23 07:49 RDW 12.4 % (12.1-15.1) 11/09/23 07:49 Plt Count 251 10^3/cmm (157-399) 11/09/23 07:49 MPV 10.6 fL (7.4-10.4) H 11/09/23 07:49 Neut % (Auto) 62.2 % 11/09/23 07:49 Lymph % (Auto) 25.5 % 11/09/23 07:49 [place] % (Auto) 7.8 % 11/09/23 07:49 Eos % (Auto) 4.0 % 11/09/23 07:49 Baso % (Auto) 0.3 % 11/09/23 07:49 Neut # (Auto) 3.61 10^3/uL (1.8-7.7) 11/09/23 07:49 Lymph # (Auto) 1.5 10^3/uL (0.8-4.8) 11/09/23 07:49 [place] # (Auto) 0.5 10^3/uL (0.2-0.9) 11/09/23 07:49 Eos # (Auto) 0.2 10^3/uL (0.0-0.8) 11/09/23 07:49 Baso # (Auto) 0.0 10^3/uL (0.0-0.1) 11/09/23 07:49 Nucleated RBC % (auto) 0 % 11/09/23 07:49 Nucleated RBCs # 0.0 /100WBC 11/09/23 07:49 Sodium 139 mmol/L (136-145) 11/09/23 07:49 Potassium 4.3 mmol/L (3.5-5.1) 11/09/23 07:49 Chloride 106 mmol/L (98-107) 11/09/23 07:49 Carbon Dioxide 23 mmol/L (22-29) 11/09/23 07:49 Anion Gap 14.3 (5-19) 11/09/23 07:49 BUN 15 mg/dL (8-23) 11/09/23 07:49 Creatinine 0.9 mg/dL (0.7-1.2) 11/09/23 07:49 GFR Calculation 85.0 mL/min (90-130) L 11/09/23 07:49 Glucose 101 mg/dL (65-115) 11/09/23 07:49 Calculated Osmolality 289 mOsm/kg (285-295) 11/09/23 07:49 Calcium 8.6 mg/dL (8.5-10.5) 11/09/23 07:49 Total Bilirubin 0.7 mg/dL (0.15-1.2) 11/09/23 07:49 AST 13 U/L (0-40) 11/09/23 07:49 ALT 13 U/L (0-41) 11/09/23 07:49 Alkaline Phosphatase 77 U/L (40-130) 11/09/23 07:49 Total Protein 6.9 g/dL (6.6-8.7) 11/09/23 07:49 Albumin 4.2 g/dL (3.5-5.2) 11/09/23 07:49 Globulin 2.7 g/dL (1.3-4.6) 11/09/23 07:49 No radiology studies performed this visit EKG Data EKG 1: Interpretation: EKG 11/09/2023 at 0 735 normal sinus rhythm rate of 68 normal CO interval 185 QT [address] changes noted normal axis Discharge Plan Discharge Patient Disposition: Home Clinical Impression: Medication side effects Condition: Stable Prescriptions: New amlodipine 2.5 mg tablet 2.5 mg PO DAILY Qty: 30 0RF Discontinued lisinopril 5 mg tablet PO No Action ciprofloxacin HCl [Cipro] 500 mg tablet 500 mg PO BID 7 Days Qty: 14 0RF tizanidine 4 mg tablet 4 mg PO terazosin 1 mg capsule PO gabapentin 100 mg capsule PO finasteride 5 mg tablet PO meloxicam 15 mg tablet 15 mg PO QAM Qty: 90 3RF (DME) auto-titrating CPAP 6-16 CM with tubing, mask and all other supplies See Rx Instructions .Route .MEDSUPPLY Qty: 1 0RF Rx Instructions: As directed omeprazole 20 mg capsule,delayed release(DR/EC) 20 mg PO DAILY PRN (Reason: Acid Reflux) Discharge Orders: Discharge ED (Routine); Ordered 11/09/23 Ordered By: Douglas Hudson Referrals: Conrado Theodore, RN WOUND [Primary Care Provider] - Discharge Diet: Usual diet Discharge Activity: Resume usual activity Patient Instructions: Opioid Safety, Pain Management Activity Restrictions/Additional Instructions: Thank you for choosing [facility] for your healthcare needs today. It is very important that you follow up as instructed or that you return to the Emergency Department should you have concerns or if your condition changes or worsens in any way. You were seen today for complaints side effect from your blood pressure medications as well as some dizziness. Several of your medications including blood pressure medications can contribute to dizziness. Recommend you hold the lisinopril and instead take amlodipine 2.5 mg once daily. You should follow-up with your primary care doctor within the next week to reevaluate your blood pressure. Coding Level of Care Code ED Meat Apprentice for Carlyle Denny
[2023-11-09 08:16] LABS: Alanine Aminotransferase 13 U/L (0-41); Albumin Level 4.2 g/dL (3.5-5.2); Alkaline Phosphatase 77 U/L (40-130); Anion Gap 14.3 (5-19); Aspartate Amino Transferase 13 U/L (0-40); Blood Urea Nitrogen 15 mg/dL (8-23); Calcium 8.6 mg/dL (8.5-10.5); Carbon Dioxide 23 mmol/L (22-29); Chloride 106 mmol/L (98-107); Globulin 2.7 g/dL (1.3-4.6); Glucose 101 mg/dL (65-115); Osmolality Calculated 289 mOsm/kg (285-295); Potassium 4.3 mmol/L (3.5-5.1); Sodium 139 mmol/L (136-145); Total Bilirubin 0.7 mg/dL (0.15-1.2); Total Protein 6.9 g/dL (6.6-8.7)
== END 2023-11-09 08:39 | disposition home or self-care (01) ==
PROVIDERS: Emergency Provider Family Medicine; PCP Clinical Nurse Specialist Adult Health
DX: R68.2 Dry mouth, unspecified (principal); T46.4X5A Adverse effect of angiotensin-converting-enzyme inhibitors, initial encounter; Z86.73 Personal history of transient ischemic attack (TIA), and cerebral infarction without residual deficits
CPT/HCPCS: 36415; 80053; 85025; 93005; 99284

== ENCOUNTER 2024-02-11 23:11 | Emergency (ER) | payer MEDICAID, SELFPAY ==
[2024-02-11 23:13] VITALS: BP 155/91; PULSE 66; RESP 18; TEMP 36.5; O2SAT 98; BMI 25.8
[2024-02-11 23:37] VITALS: BP 175/97; PULSE 68; RESP 18; O2SAT 97
--- NOTE | 2024-02-11 23:37 | ED_ITS ---
HPI - General Adult 2 General: Chief complaint: General Medical Stated complaint: abd pain off/ on months Time Seen by Provider: 02/11/24 23:36 History of Present Illness: 63-year-old man who presents [facility] the [facility] with fairly chronic abdominal pain. He says he has been having the pain for probably 6 months to a year. He has been to see his PCP and has been to the ER for this. He says he started feeling like he was drooling when he laid down and said he thought he might should come to the emergency room to have this worked up again. He says he has attacks of abdominal pain. It seems this is kind of in his right upper quadrant and he has been told he has gallstones in the past. No fevers. No altered mental status. No focal motor deficits. No chest pain. No shortness of breath. Related Data Home Medications Medication Instructions Recorded Confirmed omeprazole 20 mg capsule,delayed 20 mg PO DAILY PRN Acid Reflux 10/03/23 11/06/23 release finasteride 5 mg tablet mg PO 11/06/23 11/06/23 gabapentin 100 mg capsule mg PO 11/06/23 11/06/23 terazosin 1 mg capsule mg PO 11/06/23 11/06/23 tizanidine 4 mg tablet 4 mg PO 11/06/23 11/06/23 Previous Rx's Medication Instructions Recorded meloxicam 15 mg tablet 15 mg PO QAM #90 tabs 08/06/23 auto-titrating CPAP 6-16 CM with #1 ea 10/16/23 tubing, mask and all other supplies ciprofloxacin HCl 500 mg tablet 500 mg PO BID 7 days #14 tabs 10/26/23 (Cipro) amlodipine 2.5 mg tablet 2.5 mg PO DAILY #30 tabs 11/09/23 Allergies Allergy/AdvReac Type Severity Reaction Status Date / Time tamsulosin Allergy Intermediate ADR-Dizzine Verified 02/11/24 23:26 ss escitalopram [From Lexapro] AdvReac Intermediate ADR-Anxiety Verified 02/11/24 23:26 Review of Systems 2 Narrative: Constitutional symptoms: Negative except as documented in HPI. Skin symptoms: Negative except as documented in HPI. Eye symptoms: Negative except as documented in HPI. ENMT symptoms: Negative except as documented in HPI. Respiratory symptoms: Negative except as documented in HPI. Cardiovascular symptoms: Negative except as documented in HPI. Gastrointestinal symptoms: Negative except as documented in HPI. Genitourinary symptoms: Negative except as documented in HPI. Musculoskeletal symptoms: Negative except as documented in HPI. Neurologic symptoms: Negative except as documented in HPI. Psychiatric symptoms: Negative except as documented in HPI. Endocrine symptoms: Negative except as documented in HPI. PFSH ED 2 PFSH: Medical History GERD (gastroesophageal reflux disease) Cervical spondylosis with radiculopathy disc degeneration at C6-7 Insomnia Facet arthropathy, lumbar BPH (benign prostatic hyperplasia) failed flomax and finasteride. MARQUEZ (obstructive sleep apnea) noncompliant with CPAP Lumbar stenosis Dizziness and giddiness Eustachian tube dysfunction Mastoiditis Allergic rhinitis Generalized osteoarthritis Anxiety disorder lexapro and cymbalta made symptoms worse History of TIA (transient ischemic attack) Surgical History History of back surgery 2006 History of colonoscopy 2018 History of bilateral inguinal hernia repair 1992 Family History Mother Generalized anxiety disorder Father Diabetes Lung disease Son , sudden No problems noted. Social History Smoking and tobacco/nicotine status: never used tobacco/nicotine Physical Exam 2 Narrative: EXAM NARRATIVE: General: Alert, no acute distress. Skin: Warm, dry. Head: Normocephalic, atraumatic. Neck: Supple, trachea midline. Eye: Extraocular movements are intact. Ears, nose, mouth and throat: mucosa moist. Cardiovascular: Regular, Normal peripheral perfusion. Respiratory: Lungs are clear to auscultation, respirations are non-labored, breath sounds are equal, Symmetrical chest wall expansion. Gastrointestinal: Soft, Nontender, Non distended Musculoskeletal: Normal ROM, no deformity. Neurological: Alert and oriented, No focal neurological deficit observed. Psychiatric: Cooperative, appropriate mood & affect. Course 2 Vital Signs: Vital signs: Vital Signs Temperature 97.7 F 02/11/24 23:13 Pulse Rate 65 02/12/24 03:00 Respiratory Rate 18 02/11/24 23:37 Blood Pressure 150/93 02/12/24 03:00 Pulse Oximetry 95 02/12/24 03:00 Oxygen Delivery Me thod Room Air 02/12/24 03:00 MDM - General Adult Medical Decision Making Differential diagnosis for patient presenting with right upper quadrant abdominal pain including but not limited to and based on the above HPI, review of systems and physical exam: Cholelithiasis or cholecystitis. Hepatitis. Diverticulitis. Constipation. Ureterolithiasis. Urinary tract infection. Appendicitis. colitis. small bowel obstruction. crohn's flare. pancreatitis. gastritis. peptic ulcer. Aortic disection. Workup including imaging and lab work replaced based on the above differential, history and exam to evaluate differential diagnosis Lab Review: Laboratory results were reviewed and interpreted by myself the emergency room physician. No leukocytosis. No anemia. No renal failure. Liver enzymes are normal. Bilirubin is normal. No evidence of ileus or obstruction. CT of the abdomen pelvis: Cholelithiasis without cholecystitis. Possible mildly dilated common bile duct, however there is no evidence for biliary obstruction or cholangitis. I reviewed the patient's medical record. Reexamination: Patient remained stable. No increased work of breathing. No altered mental status. No focal motor deficits. We discussed follow-up with general surgery to consider cholecystitis since he seems to be having some biliary colic at times. Assessment and plan: Biliary colic Cholelithiasis - Discharged home - Discussed plan with patient. Answered any questions. - Evaluation and treatment of this problem were appropriate in the emergency setting. Lab Data 02/12/24 00:12 02/12/24 00:12 Radiology Impressions Abdomen/Pelvis CT 02/12/24 01:14 IMPRESSION: 1. Cholelithiasis without evidence of acute cholecystitis. 2. Increased stool within the colon. No dilated bowel. 3. Mildly dilated common bile duct at 14 mm. Correlation with ultrasound is suggested 4. Small hiatal hernia with distal esophageal wall thickening suspicious for reflux esophagitis Laboratory Results WBC 5.83 10^3/uL (3.29-11.43) 02/12/24 00:12 RBC 4.90 10^6/uL (3.85-5.65) 02/12/24 00:12 Hgb 14.90 g/dL (11.27-16.99) 02/12/24 00:12 Hct 44.4 % (37-53) 02/12/24 00:12 MCV 90.6 fl (82-101) 02/12/24 00:12 MCH 30.4 pg (27-33) 02/12/24 00:12 MCHC 33.6 g/dL (30-55) 02/12/24 00:12 RDW 12.2 % (12.1-15.1) 02/12/24 00:12 Plt Count 242 10^3/cmm (157-399) 02/12/24 00:12 MPV 11.0 fL (7.4-10.4) H 02/12/24 00:12 Neut % (Auto) 56.4 % 02/12/24 00:12 Lymph % (Auto) 28.6 % 02/12/24 00:12 [place] % (Auto) 9.6 % 02/12/24 00:12 Eos % (Auto) 5.0 % 02/12/24 00:12 Baso % (Auto) 0.2 % 02/12/24 00:12 Neut # (Auto) 3.29 10^3/uL (1.8-7.7) 02/12/24 00:12 Lymph # (Auto) 1.7 10^3/uL (0.8-4.8) 02/12/24 00:12 [place] # (Auto) 0.6 10^3/uL (0.2-0.9) 02/12/24 00:12 Eos # (Auto) 0.3 10^3/uL (0.0-0.8) 02/12/24 00:12 Baso # (Auto) 0.0 10^3/uL (0.0-0.1) 02/12/24 00:12 Nucleated RBC % (auto) 0 % 02/12/24 00:12 Nucleated RBCs # 0.0 /100WBC 02/12/24 00:12 Sodium 141 mmol/L (136-145) 02/12/24 00:12 Potassium 3.8 mmol/L (3.5-5.1) 02/12/24 00:12 Chloride 104 mmol/L (98-107) 02/12/24 00:12 Carbon Dioxide 27 mmol/L (22-29) 02/12/24 00:12 Anion Gap 13.8 (5-19) 02/12/24 00:12 BUN 15 mg/dL (8-23) 02/12/24 00:12 Creatinine 0.9 mg/dL (0.7-1.2) 02/12/24 00:12 GFR Calculation 85.0 mL/min (90-130) L 02/12/24 00:12 Glucose 88 mg/dL (65-115) 02/12/24 00:12 Calculated Osmolality 292 mOsm/kg (285-295) 02/12/24 00:12 Lactic Acid 0.8 mmol/L (0.5-2.2) 02/12/24 00:12 Calcium 8.8 mg/dL (8.5-10.5) 02/12/24 00:12 Total Bilirubin 0.5 mg/dL (0.15-1.2) 02/12/24 00:12 AST 17 U/L (0-40) 02/12/24 00:12 ALT 11 U/L (0-41) 02/12/24 00:12 Alkaline Phosphatase 69 U/L (40-130) 02/12/24 00:12 C-Reactive Protein 3.0 mg/L (0.0-4.9) 02/12/24 00:12 Total Protein 6.8 g/dL (6.6-8.7) 02/12/24 00:12 Albumin 4.3 g/dL (3.5-5.2) 02/12/24 00:12 Globulin 2.5 g/dL (1.3-4.6) 02/12/24 00:12 Lipase 30 U/L (13-60) 02/12/24 00:12 Urine Color Yellow (Yellow) 02/12/24 00:04 Urine Appearance Clear (CLEAR) 02/12/24 00:04 Urine pH 6.5 (5-7) 02/12/24 00:04 Ur Specific [place] 1.018 (1.005-1.030) 02/12/24 00:04 Urine Protein Negative (Negative) 02/12/24 00:04 Urine Glucose (UA) Negative (Normal) 02/12/24 00:04 Urine Ketones Trace (Negative) 02/12/24 00:04 Urine Blood Negative (Negative) 02/12/24 00:04 Urine Nitrate Negative (Negative) 02/12/24 00:04 Urine Bilirubin Negative (Negative) 02/12/24 00:04 Urine Urobilinogen 1.0 mg/dL (Negative) 02/12/24 00:04 Ur Leukocyte Esterase Negative (Negative) 02/12/24 00:04 Urine RBC 0-2 /hpf (0-2) 02/12/24 00:04 Urine WBC 0-5 /hpf (0-5) 02/12/24 00:04 Ur Squamous Epith Cells 0-5 /hpf (0-5) 02/12/24 00:04 Amorphous Sediment Not Reportable 02/12/24 00:04 Urine Bacteria None seen /hpf (NONE) 02/12/24 00:04 Hyaline Casts 0-4 /lpf H 02/12/24 00:04 All radiology interpretation(s) finalized by discharge Discharge Plan Discharge Patient Disposition: Home Clinical Impression: Biliary colic, Cholelithiasis Condition: Stable Prescriptions: No Action ciprofloxacin HCl [Cipro] 500 mg tablet 500 mg PO BID 7 Days Qty: 14 0RF tizanidine 4 mg tablet 4 mg PO terazosin 1 mg capsule PO gabapentin 100 mg capsule PO finasteride 5 mg tablet PO meloxicam 15 mg tablet 15 mg PO QAM Qty: 90 3RF (DME) auto-titrating CPAP 6-16 CM with tubing, mask and all other supplies See Rx Instructions .Route .MEDSUPPLY Qty: 1 0RF Rx Instructions: As directed amlodipine 2.5 mg tablet 2.5 mg PO DAILY Qty: 30 0RF omeprazole 20 mg capsule,delayed release(DR/EC) 20 mg PO DAILY PRN (Reason: Acid Reflux) Discharge Orders: Discharge ED (Routine); Ordered 02/12/24 Ordered By: Gayathri Hadley Referrals: Chris Humphrey MD [Physician] - 4-7 days (Please call for an appointment to discuss your gallbladder symptoms.) Discharge Diet: Usual diet Discharge Activity: Increase activity as tolerated Patient Instructions: Biliary Colic (ED), Abdominal Pain (ED), Opioid Safety, Pain Management Activity Restrictions/Additional Instructions: Thank you for choosing [facility] for your healthcare needs today. Please realize this is an emergency room and that we are providing you with a medical screening exam and this may not be complete and all inclusive of all the testing and or work up that you may need to determine your ailment or severity of your illness. You have been screened and evaluated and felt safe for discharge. Health conditions do change or evolve sometimes and as such it is important that you follow up with your Primary Doctor to be re checked, 3-5 days is a general good time frame for follow up. You are always welcome to return to the ED for re assessment if your symptoms are worsening or you have new concerns Coding Level of Care Code ED Internal Medicine Physician Assistant for Carlyle Denny
[2024-02-12 00:20] LABS: Bilirubin Urine Negative (Negative); Blood Urine Negative (Negative); Glucose Urine UA Negative (Normal); Ketones Urine Trace (Negative); Leukocyte Esterase Urine Negative (Negative); Nitrate Urine Negative (Negative); Protein Urine Negative (Negative); Specific Gravity, Urine 1.018 (1.005-1.030); Urine Appearance Clear (CLEAR); Urine Color Yellow (Yellow); pH Urine 6.5 (5-7)
[2024-02-12 00:25] LABS: Bacteria Urine None Seen /hpf; Hyaline Casts Urine 0-4 /lpf; RBC Urine 0-2 /hpf (0-2); Squamous Epithelial Cell Urine 0-5 /hpf (0-5); WBC Urine 0-5 /hpf (0-5)
[2024-02-12 00:31] LABS: Basophils % 0.2 %; Eosinophils # 0.3 10^3/uL (0.0-0.8); Hematocrit 44.4 % (37-53); Lymphocytes # 1.7 10^3/uL (0.8-4.8); Lymphocytes % 28.6 %; Mean Corpuscular HGB Conc 33.6 g/dL (30-55); Mean Corpuscular Hemoglobin 30.4 pg (27-33); Mean Corpuscular Volume 90.6 fl (82-101); Monocytes # 0.6 10^3/uL (0.2-0.9); Monocytes % 9.6 %; Neutrophils # 3.29 10^3/uL (1.8-7.7); Neutrophils % 56.4 %; Nucleated Red Blood Cells % 0 %; Platelet Count 242 10^3/cmm (157-399); Red Cell Distribution Width 12.2 % (12.1-15.1); White Blood Count 5.83 10^3/uL (3.29-11.43)
[2024-02-12 00:46] LABS: Lactic Sepsis W/Reflex 0.8 mmol/L (0.5-2.2)
[2024-02-12 00:47] LABS: Alanine Aminotransferase 11 U/L (0-41); Albumin Level 4.3 g/dL (3.5-5.2); Alkaline Phosphatase 69 U/L (40-130); Anion Gap 13.8 (5-19); Aspartate Amino Transferase 17 U/L (0-40); Blood Urea Nitrogen 15 mg/dL (8-23); Calcium 8.8 mg/dL (8.5-10.5); Carbon Dioxide 27 mmol/L (22-29); Chloride 104 mmol/L (98-107); Creatinine Clr Calc Pharmacy 89.6739; Globulin 2.5 g/dL (1.3-4.6); Glucose 88 mg/dL (65-115); Lipase 30 U/L (13-60); Osmolality Calculated 292 mOsm/kg (285-295); Potassium 3.8 mmol/L (3.5-5.1); Sodium 141 mmol/L (136-145); Total Bilirubin 0.5 mg/dL (0.15-1.2); Total Protein 6.8 g/dL (6.6-8.7)
--- NOTE | 2024-02-12 01:14 | CTR_ITS ---
PROCEDURE INFORMATION: Exam: CT Abdomen And Pelvis With Contrast Exam date and time: 02/12/2024 2:03 AM Age: 63 years old Clinical indication: Abdominal pain; Epigastric TECHNIQUE: Imaging protocol: Computed tomography of the abdomen and pelvis with contrast. Radiation optimization: All CT scans at this facility use at least one of these dose optimization techniques: automated exposure control; mA and/or kV adjustment per patient size (includes targeted exams where dose is matched to clinical indication); or iterative reconstruction. Contrast material: OMNI 350; Contrast volume: 100 ml; Contrast route: INTRAVENOUS (IV); COMPARISON: CR XR lumbar spine 2-3V* [id number] 07/23/2023 10:58 AM RADIATION DOSE METRICS: Total DLP (mGy-cm): 574.35 FINDINGS: Lungs: Minimal bibasilar atelectasis. 5 mm ground-glass nodule in the right lower lobe Heart: Small pericardial cyst measuring 1.9 cm Liver: Small subcentimeter low-density lesions in the liver most likely representing cysts. Gallbladder and biliary ducts: Multiple gallstones are present. No pericholecystic inflammatory changes to suggest cholecystitis. Mildly dilated common bile duct at 14 mm. Pancreas: Normal. No ductal dilation. Spleen: Normal. No splenomegaly. Adrenal glands: Normal. No mass. Kidneys and ureters: Normal. No hydronephrosis. Stomach and bowel: Increased stool within the colon. No dilated bowel. Appendix: No evidence of appendicitis. Intraperitoneal space: Unremarkable. No free air. No significant fluid collection. Vasculature: Unremarkable. No abdominal aortic aneurysm. Lymph nodes: Unremarkable. No enlarged lymph nodes. Urinary bladder: See Reproductive finding. Reproductive: Enlarged prostate at 5.2 cm. Mass effect on the floor of the bladder Bones/joints: Lumbar spine degenerative changes. No acute fracture. Soft tissues: Unremarkable. CT/CT abdomen pelvis w con* [id number] IMPRESSION: 1. Cholelithiasis without evidence of acute cholecystitis. 2. Increased stool within the colon. No dilated bowel. 3. Mildly dilated common bile duct at 14 mm. Correlation with ultrasound is suggested 4. Small hiatal hernia with distal esophageal wall thickening suspicious for reflux esophagitis
[2024-02-12 01:25] VITALS: BP 126/80; PULSE 56; O2SAT 96
[2024-02-12] MEDS: iohexol 350 mg/mL 500 mL Btl (per mL) IV (02:20)
[2024-02-12 03:00] VITALS: BP 150/93; PULSE 65; O2SAT 95
[2024-02-12 03:35] VITALS: BP 140/84; PULSE 73; O2SAT 97
== END 2024-02-12 03:41 | disposition home or self-care (01) ==
PROVIDERS: Emergency Provider Emergency Medicine
DX: K80.50 Calculus of bile duct without cholangitis or cholecystitis without obstruction (principal); K80.20 Calculus of gallbladder without cholecystitis without obstruction; Z86.73 Personal history of transient ischemic attack (TIA), and cerebral infarction without residual deficits
CPT/HCPCS: 36415; 74177; 80053; 81001; 83605; 83690; 85025; 86140; 99285

== ENCOUNTER → 2024-02-19 12:49 | Outpatient (BNVA) | payer MEDICAID, SELFPAY | PROVIDERS: Visit Provider Surgery | DX: Z09 Encounter for follow-up examination after completed treatment for conditions other than malignant neoplasm; K80.20 Calculus of gallbladder without cholecystitis without obstruction | CPT/HCPCS: 99204; 99214 ==

== ENCOUNTER 2024-02-25 14:03 | Outpatient (CLI) | payer MEDICAID, SELFPAY ==
--- NOTE | 2024-02-25 14:30 | MRR_ITS ---
PROCEDURE INFORMATION: Exam: MR Abdomen Without Contrast, Biliary System Exam date and time: 02/25/2024 2:18 PM Age: 63 years old Clinical indication: Condition or disease; Bile duct condition; Other: Dilation; Additional info: Choledococolithiasis, bile duct dilation, 02/24/24-03/25/24 [id number]- earline mariano MA 02/24/24 1600 TECHNIQUE: Imaging protocol: MR of the abdomen without contrast. Exam focused on the biliary system and pancreatic ducts. Routine 3D-MRCP images were acquired and processed without radiologist supervision. COMPARISON: CT abdomen pelvis w con* [id number] 02/12/2024 2:03 AM FINDINGS: Liver: A 1.5 cm simple cyst involves the left hepatic lobe. A 5 mm cyst involves the right hepatic lobe. Gallbladder and biliary ducts: Multiple gallstones are noted in the gallbladder but the gallbladder does not appear inflamed. The common bile duct is mildly prominent at 10 mm in diameter but I see no evidence of biliary stricture or stone. Minimal intrahepatic bile duct dilatation is noted. Pancreas: Unremarkable. No ductal dilation. Intraperitoneal space: No fluid collection. MR/MR MRCP [id number] IMPRESSION: 1. Mild biliary prominence of uncertain etiology. No definite biliary stone noted. 2. Cholelithiasis without evidence of acute cholecystitis 3. Small hepatic cysts
== END 2024-02-25 14:04 | disposition home or self-care (01) ==
LOC: RAD 14:04
PROVIDERS: Visit Provider Surgery
DX: K80.20 Calculus of gallbladder without cholecystitis without obstruction (principal); Q44.6 Cystic disease of liver
CPT/HCPCS: 74181

== ENCOUNTER 2024-02-29 10:24 | Emergency (ER) | payer MEDICAID, SELFPAY ==
[2024-02-29 10:44] VITALS: BP 153/97; PULSE 83; RESP 18; TEMP 36.4; O2SAT 99; BMI 25.8
--- NOTE | 2024-02-29 10:54 | W.ED.GENADLT ---
HPI - General Adult General: Stated complaint: dry mouth, sweating Time Seen by Provider: 02/29/24 10:49 History of Present Illness: 63-year-old man who was sent here from urgent care. He had gone there because he had dry mouth and has been dizzy for about 6 months. He wanted to get his glucose checked because he was afraid he might have diabetes. Apparently their glucometer was not working so they sent him to the emergency room. He has not had increased urinary frequency. His blood glucose is 106 on presentation here. I saw him recently and he has some gallstones and is going to see the surgeon on Saturday for this. Glucose was within normal limits at that time as well. We discussed that he needs to get a primary care very soon so that these types of issues can be addressed appropriately. Related Data Home Medications Medication Instructions Recorded Confirmed finasteride 5 mg tablet 5 mg PO DAILY 11/06/23 02/27/24 gabapentin 100 mg capsule 10 mg PO DAILY 11/06/23 02/27/24 Previous Rx's Medication Instructions Recorded meloxicam 15 mg tablet 15 mg PO QAM #90 tabs 08/06/23 auto-titrating CPAP 6-16 CM with #1 ea 10/16/23 tubing, mask and all other supplies amlodipine 2.5 mg tablet 2.5 mg PO DAILY #30 tabs 11/09/23 Allergies Allergy/AdvReac Type Severity Reaction Status Date / Time tamsulosin Allergy Intermediate ADR-Dizzine Verified 02/19/24 12:58 ss escitalopram [From Lexapro] AdvReac Intermediate ADR-Anxiety Verified 02/19/24 12:58 Review of Systems Narrative: Constitutional symptoms: Negative except as documented in HPI. Skin symptoms: Negative except as documented in HPI. Eye symptoms: Negative except as documented in HPI. ENMT symptoms: Negative except as documented in HPI. Respiratory symptoms: Negative except as documented in HPI. Cardiovascular symptoms: Negative except as documented in HPI. Gastrointestinal symptoms: Negative except as documented in HPI. Genitourinary symptoms: Negative except as documented in HPI. Musculoskeletal symptoms: Negative except as documented in HPI. Neurologic symptoms: Negative except as documented in HPI. Psychiatric symptoms: Negative except as documented in HPI. Endocrine symptoms: Negative except as documented in HPI. [facility] ED PFSH: Medical History GERD (gastroesophageal reflux disease) Cervical spondylosis with radiculopathy disc degeneration at C6-7 Insomnia Facet arthropathy, lumbar BPH (benign prostatic hyperplasia) failed flomax and finasteride. MARQUEZ (obstructive sleep apnea) noncompliant with CPAP Lumbar stenosis Dizziness and giddiness Eustachian tube dysfunction Mastoiditis Allergic rhinitis Generalized osteoarthritis Anxiety disorder lexapro and cymbalta made symptoms worse History of TIA (transient ischemic attack) Surgical History History of back surgery 2006 History of colonoscopy 2019 History of bilateral inguinal hernia repair 1992 Family History Mother Generalized anxiety disorder Father Diabetes Lung disease Son , sudden No problems noted. Social History Smoking and tobacco/nicotine status: never used tobacco/nicotine Physical Exam Narrative: EXAM NARRATIVE: General: Alert, no acute distress. Skin: Warm, dry. Head: Normocephalic, atraumatic. Neck: Supple, trachea midline. Eye: Extraocular movements are intact. Ears, nose, mouth and throat: mucosa moist. Cardiovascular: Regular, Normal peripheral perfusion. Respiratory: Lungs are clear to auscultation, respirations are non-labored, breath sounds are equal, Symmetrical chest wall expansion. Gastrointestinal: Soft, Nontender, Non distended Musculoskeletal: Normal ROM, no deformity. Neurological: Alert and oriented, No focal neurological deficit observed. Psychiatric: Cooperative, appropriate mood & affect. MDM - General Adult Medical Decision Making Assessment and plan: Feared complaint without diagnosis - Discharged home - Discussed plan with patient. Answered any questions. - Evaluation and treatment of this problem were appropriate in the emergency setting. No radiology studies performed this visit Discharge Plan Discharge Patient Disposition: Home Clinical Impression: Feared complaint without diagnosis Condition: Stable Prescriptions: No Action gabapentin 100 mg capsule 10 mg PO DAILY finasteride 5 mg tablet 5 mg PO DAILY meloxicam 15 mg tablet 15 mg PO QAM Qty: 90 3RF (DME) auto-titrating CPAP 6-16 CM with tubing, mask and all other supplies See Rx Instructions .Route .MEDSUPPLY Qty: 1 0RF Rx Instructions: As directed amlodipine 2.5 mg tablet 2.5 mg PO DAILY Qty: 30 0RF Discharge Orders: Discharge ED (Routine); Ordered 02/29/24 Ordered By: Gayathri Hadley Discharge Diet: Low Fat Discharge Activity: Increase activity as tolerated Patient Instructions: Opioid Safety, Pain Management Activity Restrictions/Additional Instructions: Keep your appointment with the surgeon to discuss your gallbladder. Thank you for choosing [facility] for your healthcare needs today. Please realize this is an emergency room and that we are providing you with a medical screening exam and this may not be complete and all inclusive of all the testing and or work up that you may need to determine your ailment or severity of your illness. You have been screened and evaluated and felt safe for discharge. Health conditions do change or evolve sometimes and as such it is important that you follow up with your Primary Doctor to be re checked, 3-5 days is a general good time frame for follow up. You are always welcome to return to the ED for re assessment if your symptoms are worsening or you have new concerns Coding Level of Care Code ED Automotive Worker for Carlyle Denny
[2024-02-29 10:57] LABS: Glucose Point of Care 106 mg/dL (70-110)
== END 2024-02-29 11:23 | disposition home or self-care (01) ==
PROVIDERS: Emergency Provider Emergency Medicine
DX: Z03.89 Encounter for observation for other suspected diseases and conditions ruled out (principal); Z86.73 Personal history of transient ischemic attack (TIA), and cerebral infarction without residual deficits
CPT/HCPCS: 36416; 82962; 99283

== ENCOUNTER 2024-03-02 05:30 | Day surgery (SDC) | payer MEDICAID, SELFPAY ==
[2024-03-02] VITALS (10 sets, daily range): BP systolic 121–168; BP diastolic 69–98; PULSE 68–83; RESP 16–32; TEMP 36.4–36.6; O2SAT 91–97; BMI 25.8
--- NOTE | 2024-03-02 05:26 | P.HPUD_ITS ---
Surgery/Procedure H&P Update DATE OF PROCEDURE: March 02, 2024 DATE H&P PERFORMED: 02/19/24 H&P UPDATE INFORMATION: I have reviewed H&P completed within last 30 days, I have examined patient prior to procedure, No changes to prior documentation and H&P is in [facility] EMR on date indicated PLANNED PROCEDURE: Operation Date: 03/02/24 07:00 Proposed Procedures p Laparoscopic Cholecystectomy possible open [id number], K80.50(Not Applicable) - Chris Humphrey MD
[2024-03-02] MEDS: sodium chloride 0.9% 1,000 ML 30 ML IV (06:22)
[2024-03-02] MEDS: midazolam 1 mg/mL INJ 2 mL 2 MG IVP (06:41)
--- NOTE | 2024-03-02 06:54 | ANES.PREANE2 ---
Pre-Anesthetic Assessment Height/Weight: Height 1.78 m Weight 81.647 kg Temp Pulse Resp BP Pulse Ox O2 Del Method 97.6 F 83 18 168/98 97 Room Air 03/02/24 05:56 03/02/24 05:56 03/02/24 05:56 03/02/24 05:56 03/02/24 05:56 03/02/24 06:09 Operation Date: 03/02/24 07:00 Proposed Procedures p Laparoscopic Cholecystectomy possible open [id number], K80.50(Not Applicable) - Chris Humphrey MD Familial anesthetic complications: None Was Beta Elisabeth taken within 24 hours: N/A Was Clonidine taken within 24 hours: N/A Last intake: Intake Last Liquid Date 03/01/24 Last Liquid Time 23:30 Last Solid Date 03/01/24 Last Solid Time 18:00 Social No alcohol and No tobacco Exam alert, oriented x 3, clear to auscultation bilaterally and regular rate & rhythm Airway Mallampati: Class I Dentition: full Pulmonary Sleep Apnea CV/HEM Hypertension GI Gastroesophageal Reflux Disease Anesthetic Plan ASA status: 2 Anesthesia: General Risk of > 500 ml blood loss (7ml/kg in children): No Medications/Allergies Home Medications Medication Instructions Recorded Confirmed Last Taken Type meloxicam 15 mg tablet 15 mg PO QAM #90 tabs 08/06/23 02/27/24 02/27/24 Rx auto-titrating CPAP 6-16 CM with #1 ea 10/16/23 02/19/24 Unknown Rx tubing, mask and all other supplies finasteride 5 mg tablet 5 mg PO DAILY 11/06/23 02/27/24 Unknown History gabapentin 100 mg capsule 10 mg PO DAILY 11/06/23 02/27/24 Unknown History amlodipine 2.5 mg tablet 2.5 mg PO DAILY #30 tabs 11/09/23 02/27/24 02/27/24 Rx Xanax 03/02/24 03/02/24 History Allergies Allergy/AdvReac Type Severity Reaction Status Date / Time tamsulosin Allergy Intermediate ADR-Dizzine Verified 02/19/24 12:58 ss escitalopram [From Lexapro] AdvReac Intermediate ADR-Anxiety Verified 02/19/24 12:58 Current Medications Generic Name Dose Route Start Last Admin Trade Name Freq PRN Reason Stop Dose Admin Sodium Chloride 1,000 mls @ 30 mls/hr 12/16/24 05:45 03/02/24 06:22 Sodium Chloride 0.9% IV 03/03/24 05:44 30 mls/hr .Q24H AMANDA Administration Midazolam HCl 2 mg 03/02/24 05:44 03/02/24 06:41 Midazolam 1 Mg/Ml Inj 2 Ml IVP 2 mg Q5M PRN Administration Preop Anxiety PFSH Anesthesia Medical History GERD (gastroesophageal reflux disease) Cervical spondylosis with radiculopathy disc degeneration at C6-7 Insomnia Facet arthropathy, lumbar BPH (benign prostatic hyperplasia) failed flomax and finasteride. MARQUEZ (obstructive sleep apnea) noncompliant with CPAP Lumbar stenosis Dizziness and giddiness Eustachian tube dysfunction Mastoiditis Allergic rhinitis Generalized osteoarthritis Anxiety disorder lexapro and cymbalta made symptoms worse History of TIA (transient ischemic attack) Surgical History History of back surgery 2006 History of colonoscopy 2019 History of bilateral inguinal hernia repair 1992 Family History Mother Generalized anxiety disorder Father Diabetes Lung disease Son , sudden No problems noted. Social History Smoking and tobacco/nicotine status: never used tobacco/nicotine Data Anesthesia Cardiac Studies: Sestamibi Stress Test (Cardiology) 12/17/22
[2024-03-02] MEDS: ceFAZolin 2,000 mg SDV 2000 MG IVP (06:58)
[2024-03-02] MEDS: lidocaine-epi 1% 20 mL INJ INJECTION (07:29)
[2024-03-02] MEDS: BUPivacaine 0.25% INJ 10 mL INJECTION (07:29)
--- NOTE | 2024-03-02 08:10 | PM.OP ---
Operative Report Date of procedure: March 02, 2024 Pre-op diagnosis: Biliary colic Post-op diagnosis: Same Post-op findings: normal biliary anatomy Procedure done: Laparoscopic cholecystectomy Specimens removed/disposition: Gallbladder Surgeon: Chris Humphrey MD Table Saw Operator: ELIS OR Staff Estimated blood loss: 10 Brief History: 63-year-old male who presents to the hospital for laparoscopic cholecystectomy due to biliary colic. After discussion of all risk benefits documented my preop note with side to proceed. Procedure: Patient was brought into the OR, he was placed in a supine position. The general anesthesia was given. The abdomen was prepped and draped in the usual sterile fashion. Timeout was conducted. The abdomen was accessed via left upper quadrant with a 5 mm Optiview trocar. Initial pneumoperitoneum was obtained and no evidence of visceral injury during entry was noted. A 12 mm trocar was placed in the supraumbilical position. Additional 5 mm trocars were placed in the right upper quadrant right flank and epigastrium under direct visualization. The patient was placed in steep reverse Trendelenburg position with the left side down. The gallbladder was then defined the right upper quadrant. The gallbladder was grasped by the fundus and retracted cephalad, additions from the omentum were taken down bluntly. I then proceeded to grasp the infundibulum and retracted in the inferolateral direction, the peritoneum anterior to the hepatocystic triangle was open I carried this opening in the medial lateral direction to the edges of the liver and then on the sides of the gallbladder to allow for better visualization. With careful blunt and sharp dissection I proceeded to encircle the cystic duct and artery and I was able to elevate the lower third of the gallbladder from the liver bed, thus creating a critical view of safety. The cystic duct and artery were double clipped proximally single clipped distally and transected and the gallbladder was removed from the liver bed. No evidence of bile leak or bleeding was noted after removal of the gallbladder. The specimen was retrieved. The supraumbilical trocar site in an Endo Catch bag. The umbilical trocar site was closed with #0 Vicryl using RajeevYesenia suture passer under direct visualization. The right upper quadrant right flank and epigastrium trocars were removed under direct visualization and the left upper quadrant trocar was used to evacuate the pneumoperitoneum and subsequently removed. The wounds were closed with #4-0 Monocryl. Local anesthesia was applied. At the end of the procedure Dermabond was applied. All counts were correct the patient tolerated well the procedure and was transferred to PACU in stable condition.
[2024-03-02] MEDS: oxyCODONE 5 mg IR Tab/Cap PO (09:15)
--- NOTE | 2024-03-02 09:30 | ANE.PACU2 ---
Inpatient post-anesthesia follow up: Airway intact: Yes Vital signs: Temperature 97.8 F Pulse Rate 72 Respiratory Rate 18 Blood Pressure 136/70 Pulse Oximetry 94 Oxygen Delivery Me thod Room Air Oxygen Flow Rate Fraction of Inspir ed Oxygen Hydration adequate: Yes Nausea and vomiting: No Pain level: 1 Mental status: Baseline
== END 2024-03-02 09:30 | disposition home or self-care (01) ==
PROVIDERS: Visit Provider Surgery
PROC: 0FT44ZZ Resection of Gallbladder, Percutaneous Endoscopic Approach (ICD-10-PCS; CPT 47562; principal; 2024-03-02 07:00)
DX: K80.10 Calculus of gallbladder with chronic cholecystitis without obstruction (principal); G47.30 Sleep apnea, unspecified; I10 Essential (primary) hypertension; K21.9 Gastro-esophageal reflux disease without esophagitis; N40.0 Benign prostatic hyperplasia without lower urinary tract symptoms; G47.33 Obstructive sleep apnea (adult) (pediatric); Z86.73 Personal history of transient ischemic attack (TIA), and cerebral infarction without residual deficits
CPT/HCPCS: 47562; 88304; J0131; J0690; J1100; J1171; J2250; J2371; J2405; J2704; J2710; J3010; J3490; J7030

== ENCOUNTER 2024-03-31 02:43 | Emergency (ER) | payer MEDICAID, SELFPAY ==
[2024-03-31 03:54] VITALS: BP 154/90; PULSE 77; RESP 18; TEMP 36.6; O2SAT 95
[2024-03-31 04:00] VITALS: BP 143/91; PULSE 83; O2SAT 97
--- NOTE | 2024-03-31 04:13 | CTR_ITS ---
PROCEDURE INFORMATION: Exam: CT Head Without Contrast Exam date and time: 03/31/2024 4:20 AM Age: 63 years old Clinical indication: Pain; Headache not specified; Additional info: Right-sided head ache, upper temporal region TECHNIQUE: Imaging protocol: Computed tomography of the head without contrast. Radiation optimization: All CT scans at this facility use at least one of these dose optimization techniques: automated exposure control; mA and/or kV adjustment per patient size (includes targeted exams where dose is matched to clinical indication); or iterative reconstruction. COMPARISON: MR angio head wo con [id number] 07/10/2023 8:19 AM RADIATION DOSE METRICS: Total DLP (mGy-cm): 1157.92 FINDINGS: Brain: Left lacunar infarct, chronic. Cerebral ventricles: No ventriculomegaly. Paranasal sinuses: Visualized sinuses are unremarkable. No fluid levels. Mastoid air cells: Stable posterior right mastoid partial effusion. Bones: Unremarkable. No acute fracture. Soft tissues: Unremarkable. CT/CT head wo con* [id number] IMPRESSION: No acute intracranial findings.
--- NOTE | 2024-03-31 04:19 | W.ED.HA ---
Documented by User: Kashif Knight DO 03/31/24 04:20 HPI - Headache General: Chief Complaint: Headache Stated Complaint: Head Pain Time Seen by Provider: 03/31/24 04:00 History of Present Illness: Patient presents to the ER with headache,. This pain has been going on for several months. He has been seeing his PCP for and was given meds for dizziness but they did not work as this is not dizziness. He states the pain is more superficial on the right upper temporal region. He said he wants know if the blood vessels are damaged because he had trauma to this area when he was 23 years old. No visual or no hearing deficits noted. Related Data Home Medications Medication Instructions Recorded Confirmed finasteride 5 mg tablet 5 mg PO DAILY 11/06/23 02/27/24 Xanax 03/02/24 Previous Rx's Medication Instructions Recorded meloxicam 15 mg tablet 15 mg PO QAM #90 tabs 08/06/23 auto-titrating CPAP 6-16 CM with #1 ea 10/16/23 tubing, mask and all other supplies amlodipine 2.5 mg tablet 2.5 mg PO DAILY #30 tabs 11/09/23 oxycodone 5 mg tablet 5 mg PO Q8H PRN pain #14 tabs 03/02/24 pregabalin 75 mg capsule (Lyrica) 75 mg PO BID #60 caps 03/31/24 Allergies Allergy/AdvReac Type Severity Reaction Status Date / Time tamsulosin Allergy Intermediate ADR-Dizzine Verified 03/31/24 03:57 ss escitalopram [From Lexapro] AdvReac Intermediate ADR-Anxiety Verified 03/31/24 03:57 Review of Systems General: Reports: 10 or more systems reviewed and unremarkable except in HPI and below PFSH ED PFSH: Medical History GERD (gastroesophageal reflux disease) Cervical spondylosis with radiculopathy disc degeneration at C6-7 Insomnia Facet arthropathy, lumbar BPH (benign prostatic hyperplasia) failed flomax and finasteride. MARQUEZ (obstructive sleep apnea) noncompliant with CPAP Lumbar stenosis Dizziness and giddiness Eustachian tube dysfunction Mastoiditis Allergic rhinitis Generalized osteoarthritis Anxiety disorder lexapro and cymbalta made symptoms worse History of TIA (transient ischemic attack) Surgical History History of back surgery 2006 History of colonoscopy 2019 History of bilateral inguinal hernia repair 1992 Family History Mother Generalized anxiety disorder Father Diabetes Lung disease Son , sudden No problems noted. Social History Smoking and tobacco/nicotine status: never used tobacco/nicotine Physical Exam Const: COMMON NORMALS: no acute distress, average body habitus, patient oriented x3, no limitations, alert and well nourished HENMT: COMMON NORMALS: normocephalic, atraumatic, hearing grossly normal bilaterally, external ears normal, Normal external nose present and moist oral mucous membranes HEAD & SCALP: normocephalic and atraumatic NOSE: Normal external nose present EXTERNAL EAR: Yes external ears normal Eye: COMMON NORMALS: Equal, round and reactive pupils present, EOMs intact bilaterally, conjunctivae normal and no scleral icterus CONJUNCTIVA: Yes conjunctivae normal PUPIL: Yes Equal, round and reactive pupils present Neck/C-Spine: COMMON NORMALS: no JVD Chest: COMMONS NORMALS: normal inspection of the chest Resp: COMMON NORMALS: normal respiratory effort, No retractions, No use of accessory muscles and clear to auscultation bilaterally AUSCULTATION: clear to auscultation bilaterally Cardio: COMMON NORMALS: no JVD, regular rate, regular rhythm, S1 normal heart sound present, S2 normal heart sound present, No gallops present (Cardio), No clicks present (Cardio), No murmurs present (Cardio) and No rub (Cardio) RATE: regular rate RHYTHM: regular rhythm HEART SOUNDS: S1 normal heart sound present and S2 normal heart sound present GI: COMMON NORMALS: Normal to inspection, nondistended, normoactive bowel sounds present, Soft to palpation, non-tender, No hepatosplenomegaly present and no masses PALPATION: Yes Soft to palpation and Yes No hepatosplenomegaly present Neuro: COMMON NORMALS: patient oriented x3 SENSORIUM/ORIENTATION: Yes alert Course Vital Signs: Vital signs: Vital Signs Temperature 97.9 F 03/31/24 03:54 Pulse Rate 62 03/31/24 06:33 Respiratory Rate 18 03/31/24 03:54 Blood Pressure 133/85 03/31/24 06:33 Pulse Oximetry 96 03/31/24 06:33 Oxygen Delivery Me thod Room Air 03/31/24 03:54 MDM - Headache Medical Records I reviewed the patient's medical records. Lab Data I reviewed the patient's lab results. Radiology Impressions Head CT 03/31/24 04:13 IMPRESSION: No acute intracranial findings. All radiology interpretation(s) finalized by discharge Discharge Plan Discharge Patient Disposition: Home Clinical Impression: Neuropathy Condition: Stable Prescriptions: New pregabalin [Lyrica] 75 mg capsule 75 mg PO BID Qty: 60 0RF Discontinued gabapentin 100 mg capsule 10 mg PO DAILY No Action finasteride 5 mg tablet 5 mg PO DAILY meloxicam 15 mg tablet 15 mg PO QAM Qty: 90 3RF (DME) auto-titrating CPAP 6-16 CM with tubing, mask and all other supplies See Rx Instructions .Route .MEDSUPPLY Qty: 1 0RF Rx Instructions: As directed amlodipine 2.5 mg tablet 2.5 mg PO DAILY Qty: 30 0RF Xanax oxycodone 5 mg tablet 5 mg PO Q8H PRN (Reason: pain) Qty: 14 0RF Discharge Orders: Discharge ED (Routine); Ordered 03/31/24 Ordered By: Douglas Hudson Discharge Diet: Usual diet Discharge Activity: Resume usual activity Patient Instructions: Opioid Safety, Pain Management Activity Restrictions/Additional Instructions: Thank you for choosing [facility] for your healthcare needs today. It is very important that you follow up as instructed or that you return to the Emergency Department should you have concerns or if your condition changes or worsens in any way. You were seen with complaints of pain in the scalp with area of a previous injury. CT of the head was negative. Recommend you stop the gabapentin and instead start Lyrica 75 mg 1 tablet twice a day. Follow-up with your primary care doctor in 14 days. Sign Out Sign Out Data: Patient Sign Out occurred on 03/31/24 at 05:54. Patient's care was discussed, and care was transferred from Kashif Knight DO to Douglas Hudson DO. Coding Level of Care Code ED Manager Er for Chg Fwd Documented by User: Douglas uHdson DO 03/31/24 07:17 HPI - Headache General: Chief Complaint: Headache Stated Complaint: Head Pain Time Seen by Provider: 03/31/24 04:00 Related Data Home Medications Medication Instructions Recorded Confirmed finasteride 5 mg tablet 5 mg PO DAILY 11/06/23 02/27/24 Xanax 03/02/24 Previous Rx's Medication Instructions Recorded meloxicam 15 mg tablet 15 mg PO QAM #90 tabs 08/06/23 auto-titrating CPAP 6-16 CM with #1 ea 10/16/23 tubing, mask and all other supplies amlodipine 2.5 mg tablet 2.5 mg PO DAILY #30 tabs 11/09/23 oxycodone 5 mg tablet 5 mg PO Q8H PRN pain #14 tabs 03/02/24 pregabalin 75 mg capsule (Lyrica) 75 mg PO BID #60 caps 03/31/24 Allergies Allergy/AdvReac Type Severity Reaction Status Date / Time tamsulosin Allergy Intermediate ADR-Dizzine Verified 03/31/24 03:57 ss escitalopram [From Lexapro] AdvReac Intermediate ADR-Anxiety Verified 03/31/24 03:57 PFSH ED PFSH: Medical History GERD (gastroesophageal reflux disease) Cervical spondylosis with radiculopathy disc degeneration at C6-7 Insomnia Facet arthropathy, lumbar BPH (benign prostatic hyperplasia) failed flomax and finasteride. MARQUEZ (obstructive sleep apnea) noncompliant with CPAP Lumbar stenosis Dizziness and giddiness Eustachian tube dysfunction Mastoiditis Allergic rhinitis Generalized osteoarthritis Anxiety disorder lexapro and cymbalta made symptoms worse History of TIA (transient ischemic attack) Surgical History History of back surgery 2006 History of colonoscopy 2019 History of bilateral inguinal hernia repair 1992 Family History Mother Generalized anxiety disorder Father Diabetes Lung disease Son , sudden No problems noted. Social History Smoking and tobacco/nicotine status: never used tobacco/nicotine Course Vital Signs: Vital signs: Vital Signs Temperature 97.9 F 03/31/24 03:54 Pulse Rate 62 03/31/24 06:33 Respiratory Rate 18 03/31/24 03:54 Blood Pressure 133/85 03/31/24 06:33 Pulse Oximetry 96 03/31/24 06:33 Oxygen Delivery Me thod Room Air 03/31/24 03:54 MDM - Headache Medical Decision Making Care assumed at change of shift. CT head is negative. Patient not having any further symptoms discussing with him it sounds more like a superficial almost like a neuropathy. Stop the gabapentin he has been on only a very low dose instead we will switch him to Lyrica 75 twice daily follow-up with primary care Lab Data Radiology Impressions Head CT 03/31/24 04:13 IMPRESSION: No acute intracranial findings. Discharge Plan Discharge Patient Disposition: Home Clinical Impression: Neuropathy Condition: Stable Prescriptions: New pregabalin [Lyrica] 75 mg capsule 75 mg PO BID Qty: 60 0RF Discontinued gabapentin 100 mg capsule 10 mg PO DAILY No Action finasteride 5 mg tablet 5 mg PO DAILY meloxicam 15 mg tablet 15 mg PO QAM Qty: 90 3RF (DME) auto-titrating CPAP 6-16 CM with tubing, mask and all other supplies See Rx Instructions .Route .MEDSUPPLY Qty: 1 0RF Rx Instructions: As directed amlodipine 2.5 mg tablet 2.5 mg PO DAILY Qty: 30 0RF Xanax oxycodone 5 mg tablet 5 mg PO Q8H PRN (Reason: pain) Qty: 14 0RF Discharge Orders: Discharge ED (Routine); Ordered 03/31/24 Ordered By: Douglas Hudson Discharge Diet: Usual diet Discharge Activity: Resume usual activity Patient Instructions: Opioid Safety, Pain Management Activity Restrictions/Additional Instructions: Thank you for choosing [facility] for your healthcare needs today. It is very important that you follow up as instructed or that you return to the Emergency Department should you have concerns or if your condition changes or worsens in any way. You were seen with complaints of pain in the scalp with area of a previous injury. CT of the head was negative. Recommend you stop the gabapentin and instead start Lyrica 75 mg 1 tablet twice a day. Follow-up with your primary care doctor in 14 days. Sign Out Sign Out Data: Patient Sign Out occurred on 03/31/24 at 05:54. Patient's care was discussed, and care was transferred from Kashif Knight DO to Douglas Hudson DO. Coding Level of Care Code ED Manager Er for Carlyle Denny
[2024-03-31 04:30] VITALS: BP 123/89; PULSE 66; O2SAT 100
[2024-03-31 05:00] VITALS: BP 116/78; PULSE 70; O2SAT 94
[2024-03-31 05:30] VITALS: BP 136/79; PULSE 69; O2SAT 96
[2024-03-31 06:33] VITALS: BP 133/85; PULSE 62; O2SAT 96
--- NOTE | 2024-03-31 16:32 | ECG_ITS ---
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
== END 2024-03-31 06:30 | disposition home or self-care (01) ==
PROVIDERS: Emergency Provider Family Medicine
DX: G62.9 Polyneuropathy, unspecified (principal); Z86.73 Personal history of transient ischemic attack (TIA), and cerebral infarction without residual deficits
CPT/HCPCS: 70450; 93005; 99284

== ENCOUNTER 2024-08-23 16:14 | Emergency (ER) | payer MEDICAID, SELFPAY ==
[2024-08-23 16:21] VITALS: BP 147/75; PULSE 71; RESP 16; TEMP 36.5; O2SAT 96; BMI 25.8
[2024-08-23] MEDS: dexamethasone 10 mg/mL INJ IM (16:44)
[2024-08-23] MEDS: ketorolac 30 mg/mL INJ IM (16:46)
[2024-08-23 16:48] VITALS: BP 120/77; PULSE 73; O2SAT 97
--- NOTE | 2024-08-23 17:12 | ED_ITS ---
HPI - Headache General: Chief Complaint: Headache Stated Complaint: dizzy, confusion, CHRISTIAN Time Seen by Provider: 08/23/24 16:29 History of Present Illness: 63-year-old male presents with headache/ scalp pain that has been chronic going on and off for quite some time along with some dizziness. Patient symptoms seem to be more associate with like a neuralgia of the scalp. Patient has had multiple negative CTs and evaluations. He presents because he continues to have pain today and wants to figure out what is going on. Associated symptoms: Deny chest pain, fever(s), nausea or vomiting Related Data Home Medications ?Medication ?Instructions ?Recorded ?Confirmed finasteride 5 mg tablet 5 mg PO DAILY 11/06/2302/26 Xanax 03/02/24 Previous Rx's ?Medication ?Instructions ?Recorded meloxicam 15 mg tablet 15 mg PO QAM #90 tabs auto-titrating CPAP 6-16 CM with #1 ea 10/16/23 tubing, mask and all other supplies amlodipine 2.5 mg tablet 2.5 mg PO DAILY #30 tabs oxycodone 5 mg tablet 5 mg PO Q8H PRN pain #14 tab s 03/02/24 pregabalin 75 mg capsule (Lyrica) 75 mg PO BID #60 cap s 03/31/24 Allergies Allergy/AdvReac Type Severity Reaction Status Date / Time tamsulosin Allergy Intermediate ADR-Dizzine Verified 03/31/24 03:57 ss escitalopram (From Lexapro) AdvReac Intermediate ADR-Anxiety Verified 03/31/24 03:57 Review of Systems Const: Denies: fever(s) or chills Card: Denies: chest pain or palpitations Resp: Denies: dyspnea or productive cough GI: Denies: abdominal pain, nausea or vomiting Neuro: Reports: headache(s) and dizziness [facility] ED PFSH: Medical History GERD (gastroesophageal reflux disease) Cervical spondylosis with radiculopathy disc degeneration at C6-7 Insomnia Facet arthropathy, lumbar BPH (benign prostatic hyperplasia) failed flomax and finasteride. MARQUEZ (obstructive sleep apnea) noncompliant with CPAP Lumbar stenosis Dizziness and giddiness Eustachian tube dysfunction Mastoiditis Allergic rhinitis Generalized osteoarthritis Anxiety disorder lexapro and cymbalta made symptoms worse History of TIA (transient ischemic attack) Surgical History History of back surgery 2006 History of colonoscopy 2019 History of bilateral inguinal hernia repair 1992 Family History Mother Generalized anxiety disorder Father Diabetes Lung disease Son , sudden No problems noted. Social History Smoking and tobacco/nicotine status: never used tobacco/nicotine Physical Exam Const: COMMON NORMALS: no acute distress, patient oriented x3 and alert HENMT: COMMON NORMALS: normocephalic HEAD & SCALP: normal to inspection and normocephalic Resp: COMMON NORMALS: normal respiratory effort and clear to auscultation bilaterally AUSCULTATION: clear to auscultation bilaterally Cardio: COMMON NORMALS: regular rate and regular rhythm RATE: regular rate RHYTHM: regular rhythm Neuro: COMMON NORMALS: patient oriented x3, CN's II-XII intact bilaterally, moves all extremities, no focal motor deficits and no sensory deficits noted SENSORIUM/ORIENTATION: Yes alert Course Vital Signs: Vital signs: Vital Signs Temperature 97.7 F 08/23/24 16:21 Pulse Rate 69 08/23/24 17:25 Respiratory Rate 16 08/23/24 16:21 Blood Pressure 135/87 08/23/24 17:25 Pulse Oximetry 97 08/23/24 17:25 Oxygen Delivery Me thod Room Air 08/23/24 16:48 MDM - Headache Medical Decision Making Patient's symptoms are chronic and been going on for quite some time with numerous negative workups with a recent visit to the ER with a negative CT and patient was started on Lyrica due to the symptoms being consistent with a neuralgia of the scalp. Patient was given some Toradol and dexamethasone in the ER to help with any discomfort. I will have a neurology consultation for him. There is no indications for more imaging or workup in the ER as he has had numerous ones that are negative with no significant change.. Patient was stable and discharged home No radiology studies performed this visit Discharge Plan Discharge Patient Disposition: Home Clinical Impression: Chronic headache, Neuralgia involving scalp Condition: Stable Prescriptions: No Action finasteride 5 mg tablet 5 mg PO DAILY meloxicam 15 mg tablet 15 mg PO QAM Qty: 90 3RF (DME) auto-titrating CPAP 6-16 CM with tubing, mask and all other supplies See Rx Instructions .Route .MEDSUPPLY Qty: 1 0RF Rx Instructions: As directed amlodipine 2.5 mg tablet 2.5 mg PO DAILY Qty: 30 0RF Xanax oxycodone 5 mg tablet 5 mg PO Q8H PRN (Reason: pain) Qty: 14 0RF pregabalin [Lyrica] 75 mg capsule 75 mg PO BID Qty: 60 0RF Discharge Orders: Discharge ED (Routine); Ordered 08/23/24 Ordered By: Anshul Nava Discharge Diet: Usual diet Discharge Activity: Increase activity as tolerated Patient Instructions: General Headache (ED), Opioid Safety, Pain Management Activity Restrictions/Additional Instructions: Please follow-up with your primary care provider. I did consult case management to help arrange for neurology consultation for you. 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
[2024-08-23 17:25] VITALS: BP 135/87; PULSE 69; O2SAT 97
--- NOTE | 2024-08-24 07:29 | DCPLANNER ---
messaged neuro for er f/u
== END 2024-08-23 17:25 | disposition home or self-care (01) ==
PROVIDERS: Emergency Provider Student in an Organized Health Care Education/Training Program
DX: R51.9 Headache, unspecified (principal); M79.2 Neuralgia and neuritis, unspecified; Z86.73 Personal history of transient ischemic attack (TIA), and cerebral infarction without residual deficits
CPT/HCPCS: 96372; 99284; J1100; J1885